=== PATIENT | male | born 1970 | race American Indian/Alaskan Native ===

== ENCOUNTER 2017-05-10 11:29 | Outpatient (CLI) | payer MEDICAID ==
--- NOTE | 2017-05-10 12:42 | XRay Report ---
RIGHT FINGERS, 3 VIEWS History: Right thumb pain, injury. Findings: There is normal bone mineralization. The right thumb appears to be held in flexion on all 3 images. There is no evidence for fracture, dislocation or bone lesion. No erosive joint pathology is identified. The soft tissues are unremarkable. Impression: No evidence for acute bony injury or erosive joint pathology. The thumb appears to be held in flexion on all images. This is of uncertain etiology. Tendinous injury/rupture?
== END 2017-05-10 11:30 | disposition home or self-care (01) ==
LOC: XRAY 11:29
DX: S69.91XA Unspecified injury of right wrist, hand and finger(s), initial encounter (principal); X58.XXXA Exposure to other specified factors, initial encounter; Y93.89 Activity, other specified; Y92.89 Other specified places as the place of occurrence of the external cause; Y99.8 Other external cause status

== ENCOUNTER 2018-12-10 14:31 | Emergency (ER) | payer MEDICARE ==
--- NOTE | 2018-12-10 15:58 | Emergency Department Report ---
ED Head Trauma HPI - General Chief complaint: Wound/Laceration Stated complaint: FALL Time Seen by Provider: 12/10/18 15:58 Source: EMS Mode of arrival: Stretcher Limitations: Language Barrier - Related Data Allergies/Adverse reactions: Allergies Allergy/AdvReac Type Severity Reaction Status Date / Time No Known Allergies Allergy Unverified 05/10/17 11:29 ED Review of Systems ROS: Stated complaint: FALL Other details as noted in HPI ED Past Medical Hx - Past Medical History Hx Seizures: Yes Hx Psychiatric Treatment: Yes (schizopenia) ED Physical Exam - General Limitations: Language Barrier ED Course Vital Signs 12/10/18 14:46 Temperature 98.4 F Pulse Rate 74 Respiratory 18 Rate Blood Pressure 116/74 [Right] O2 Sat by Pulse 98 Oximetry Critical care attestation.: If time is entered above; I have spent that time in minutes in the direct care of this critically ill patient, excluding procedure time. ED Disposition Condition: Stable Referrals: PRIMARY CARE, [Primary Care Provider] - 3-5 Days
--- NOTE | 2018-12-10 16:10 | Event Note ---
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 They said at 12:00 patient fell which she falls a lot and they noticed that patient has worsening gait and unable to walk or get out of bed and worried because although he falls a lot this is something new for him. They also complains that patient has diminished movement on the right side. Patient is alert and responsive and GCS of 15. Normal sensation and follows commands appropriately but this he is unable to get out of bed or ambulate. He is able to move his upper and lower extremities. They deny patient with any head injury and patient denies any headache or neck pain. I spoke with Dr. Rosa Madrid regarding patient condition and she saw patient and agree with workup. Dr. Garland took over care of the patient and patient transferred to the main ED. This initial assessment/diagnostic orders/clinical plan/treatment(s) is/are subject to change based on patients health status, clinical progression and re- assessment by fellow clinical providers in the ED. Further treatment and workup at subsequent clinical providers discretion. Patient/guardian urged not to elope from the ED as their condition may be serious if not clinically assessed and managed. Initial orders include: Workup started to include labs CT scan, x-rays and EKG. Urinalysis and urine drug screen
--- NOTE | 2018-12-10 17:10 | XRay Report ---
CHEST 2 VIEWS INDICATION / CLINICAL INFORMATION: fall with mental impairment. COMPARISON: None available. FINDINGS: SUPPORT DEVICES: None. HEART / MEDIASTINUM: No significant abnormality. LUNGS / PLEURA: No significant pulmonary or pleural abnormality. No pneumothorax. ADDITIONAL FINDINGS: No significant additional findings. IMPRESSION: 1. No acute findings. Signer Name: Arianna Us MD Signed: 12/10/2018 5:06 PM Workstation Name: [id number]
[2018-12-10 17:25] LABS: Alanine Aminotransferase 38 units/L (7-56); Albumin 4.3 g/dL (3.9-5); BUN/Creatinine Ratio 19; Blood Urea Nitrogen 13 mg/dL (9-20); Calcium 9.3 mg/dL (8.4-10.2); Hemolysis Index 10
[2018-12-10 17:32] LABS: Basophils % (Auto) 0.3 % (0.0-1.8); Eosinophils # (Auto) 0.2 K/mm3 (0.0-0.4); Eosinophils % (Auto) 1.9 % (0.0-4.3); Hematocrit 44.3 % (35.5-45.6); Hemoglobin 14.7 gm/dl (11.8-15.2); Lymphocytes # (Auto) 2.4 K/mm3 (1.2-5.4); Lymphocytes % (Auto) 29.6 % (13.4-35.0); Mean Corpuscular HGB Conc 33 % (32-34); Mean Corpuscular Volume 88 fl (84-94); Monocytes # (Auto) 0.3 K/mm3 (0.0-0.8); Platelet Count 178 K/mm3 (140-440); Red Blood Count 5.03 M/mm3 (3.65-5.03); Red Cell Distribution Width 14.1 % (13.2-15.2)
--- NOTE | 2018-12-10 17:43 | Cat Scan Report ---
CT head/brain wo con INDICATION / CLINICAL INFORMATION: 48 years Male; fall with alteration in mobility. TECHNIQUE: Routine CT head without contrast. All CT scans at this location are performed using CT dos e reduction for ALARA by means of automated exposure control. COMPARISON: None FINDINGS: BRAIN / INTRACRANIAL CONTENTS: Scalp hematoma is seen in the right posterior parietal region. I do no t see intracranial sequela from the trauma. I do not see air-fluid level in the visualized paranasal sinuses. I do not see scalp hematoma. No acute hemorrhage, mass effect, midline shift, hydrocephalus, or acute, large territorial infarct. No chronic infarct or focal atrophy. Normal brain volume and ventricular/sulcal size for age. Almost symmetric focal calcification is seen in the frontal lobe white matter. These are nonspecific. I do not see calcified lesion in the foramina of Jeanine. I do not see CT findings to suggest to both legs. CT findings are not consistent with tuberous sclerosis. 2 other considerations are CMV infectio n and toxoplasmosis. If there are previous CT scans of the brain, I do not be helpful for comparison. CRANIOCERVICAL JUNCTION: No significant abnormality. ORBITS: No significant abnormality of visualized orbits. SINUSES / MASTOIDS: No significant abnormality of the visualized paranasal sinuses or mastoid air nanda ls. ADDITIONAL FINDINGS: None. IMPRESSION: I do not see intracranial sequela from the trauma Incidental calcification in the frontal lobe white matter. Signer Name: Elba Spain MD Signed: 12/10/2018 5:39 PM Workstation Name: [id number]
--- NOTE | 2018-12-10 17:50 | Cat Scan Report ---
Exam: CT cervical spine History: fall will complain of neck pain; Technique: Contiguous thin cut axial images obtained through the cervical spine. Sagittal and espinal l reconstructions performed by the technologist. All CT scans at this location are performed using CT dose reduction for ALARA by means of automated exposure control. Findings: No priors. There is no evidence of fracture or traumatic subluxation. I do not see compression fracture. Prevertebral space is normal. In the transverse images, I do not s ee fracture involving the bony canal. Anterior bridging osteophytes are seen in the mid cervical level consistent with DISH. Bony canal stenosis seen in the cervical spine due to short pedicles the C4 and C4-C5 disc levels, br oad-based shallow disc protrusion is seen. Neuroforamina are normal. At C5-C6 disc level, bony spur is seen more towards the right side. Right neuroforamen is narrowed. At C6-C7 disc level, bony spur is seen more towards the left side. Left neural foramen is narrowed. Intervertebral disc spaces are well-maintained. Surrounding soft tissues are grossly normal. Impression: I do not see sequela from the trauma in the cervical spine Bony canal and thecal sac stenoses at C3-C4, C4-C5 and C5-C6 disc levels. Foraminal stenoses at C5-C6 and C6-C7 disc levels Bridging osteophytes consistent with DISH All CT scans at this location are performed using CT dose reduction for ALARA by means of automated e xposure control. Signer Name: Elba Spain MD Signed: 12/10/2018 5:45 PM Workstation Name: [id number]
[2018-12-10 17:55] LABS: INR 1.09 (0.87-1.13)
[2018-12-10 17:56] LABS: Partial Thromboplastin Time 28.2 Sec. (24.2-36.6)
[2018-12-10 17:59] LABS: Amphetamine Screen,Urine PRESUMPTIVE NEGATIVE; Benzodiazepines Screen,Urine PRESUMPTIVE NEGATIVE; Cannabinoid Screen,Urine PRESUMPTIVE NEGATIVE; Cocaine Screen,Urine PRESUMPTIVE NEGATIVE; Methadone Screen,Urine PRESUMPTIVE NEGATIVE; Opiate Screen,Urine PRESUMPTIVE NEGATIVE
--- NOTE | 2018-12-10 18:15 | XRay Report ---
BILATERAL HIP 3 VIEW(S) INDICATION / CLINICAL INFORMATION: fall with altered mobility COMPARISON: None available. FINDINGS: BONES / JOINT(S): No acute fracture or subluxation. No significant arthritis. SOFT TISSUES: No significant abnormality. ADDITIONAL FINDINGS: None. Signer Name: Arianna Us MD Signed: 12/10/2018 6:11 PM Workstation Name: [id number]
[2018-12-10 18:18] LABS: Bilirubin,Urine NEG (Negative); Blood,Urine NEG (Negative); Color,Urine Yellow (Yellow); Protein,Urine <15 mg/dL mg/dL (Negative); Urobilinogen,Urine < 2.0 mg/dL (<2.0)
--- NOTE | 2018-12-10 18:20 | Emergency Department Report ---
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 They said at 12:00 patient fell which he usually falls a lot and they noticed that patient has worsening gait and unable to walk or get out of bed and worried because although he falls a lot this is something new for him. They also complains that patient has diminished movement on the right side. Patient is alert and responsive and GCS of 15. Normal sensation and follows commands appropriately but this he is unable to get out of bed or ambulate. He is able to move his upper extremity. They deny patient with any head injury and patient denies any headache or neck pain MD Complaint: fall - Related Data Allergies Allergy/AdvReac Type Severity Reaction Status Date / Time No Known Allergies Allergy Unverified 05/10/17 11:29 ED Review of Systems ROS: Stated complaint: FALL Other details as noted in HPI Comment: All other systems reviewed and negative Constitutional: denies: chills, fever Respiratory: denies: cough, shortness of breath Cardiovascular: denies: chest pain Gastrointestinal: denies: abdominal pain, nausea, vomiting Musculoskeletal: denies: back pain Neurological: denies: headache ED Past Medical Hx - Past Medical History Hx Seizures: Yes Hx Psychiatric Treatment: Yes (schizopenia) ED Physical Exam - General Limitations: Language Barrier General appearance: alert, in no apparent distress - Head Head exam: Present: other - Eye Eye exam: Present: normal appearance, PERRL - ENT ENT exam: Present: normal exam, normal orophraynx, mucous membranes moist - Neck Neck exam: Present: normal inspection, full ROM. Absent: tenderness, meningismus, lymphadenopathy, thyromegaly - Respiratory Respiratory exam: Present: normal lung sounds bilaterally - Cardiovascular Cardiovascular Exam: Present: regular rate, normal rhythm, normal heart sounds - GI/Abdominal GI/Abdominal exam: Present: soft, normal bowel sounds. Absent: distended, te nderness, guarding, rebound, rigid, organomegaly, mass, bruit, pulsatile mass, hernia - Back Exam Back exam: Present: normal inspection, full ROM. Absent: CVA tenderness (R), CVA tenderness (L), muscle spasm - Neurological Exam Neurological exam: Present: alert, abnormal gait - Skin Skin exam: Present: warm, other (0.5 cm laceration to the forehead.) ED Course Vital Signs 12/10/18 12/10/18 12/10/18 14:46 16:17 17:26 Temperature 98.4 F Pulse Rate 74 71 Respiratory 18 18 11 L Rate Blood Pressure Blood Pressure 116/74 [Right] O2 Sat by Pulse 98 96 100 Oximetry 12/10/18 17:30 Temperature Pulse Rate 65 Respiratory 13 Rate Blood Pressure 127/79 Blood Pressure [Right] O2 Sat by Pulse 98 Oximetry ED Medical Decision Making - Lab Data Result diagrams: 12/10/18 16:38 12/10/18 16:38 - Radiology Data Radiology results: report reviewed - Medical Decision Making Patient is a 48-year-old male presented to the emergency room with caregivers were reported that 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 They said at 12:00 patient fell which he usually falls a lot and they noticed that patient has worsening gait and unable to walk or get out of bed and worried because although he falls a lot this is so mething new for him. They also complains that patient has diminished movement on the right side. Patient is alert and responsive and GCS of 15. Normal sensation and follows commands appropriately but this he is unable to get out of bed or ambulate. He is able to move his upper extremity. They deny patient with any head injury and patient denies any headache or neck pain. Patient CT brain, CT and cervical spine, thoracic spine, lumbar spine are all negative for acute finding. Hip x-ray and pelvis are negative for acute finding. Bilateral knee x-rays negative. Labs reviewed that is unremarkable. The patient is still unable to move his right lower extremity. I discussed the patient was Dr. Palomares from [facility] trauma. She accepted the patient to be transferred to the [facility] ER. Critical Care Time: Yes Critical care time in (mins) excluding proc time.: 30 Critical care attestation.: If time is entered above; I have spent that time in minutes in the direct care of this critically ill patient, excluding procedure time. ED Disposition Clinical Impression: Fall, Head injury, Right leg weakness Disposition: [id number]/TX-[id number] ANOTHER TYPE HLTHCARE Is pt being admited?: No Condition: Stable Referrals: PRIMARY CARE,MD [Primary Care Provider] - 3-5 Days
--- NOTE | 2018-12-10 19:07 | XRay Report ---
AP AND LATERAL VIEWS BOTH KNEES INDICATION: knee injury. COMPARISON: No relevant prior imaging study available. FINDINGS: There is advanced tricompartmental osteoarthrosis of the left knee. There is heterotopic ossification superficial to the lateral tibiofemoral compartment laterally. No acute fracture or dislocation is s een. At the right knee, there is mild tricompartmental joint space narrowing. No acute fracture or disloca tion is seen. IMPRESSION: 1. No acute findings. Signer Name: Dudley Shane MD Signed: 12/10/2018 7:02 PM Workstation Name: [id number]
--- NOTE | 2018-12-10 19:52 | Cat Scan Report ---
CT lumbar spine wo con INDICATION: fall, back pain. TECHNIQUE: All CT scans at this location are performed using the following dose modulation technique: Automated exposure control. COMPARISON: None available. FINDINGS: No acute fracture or subluxation is seen within the lumbar spine. Alignment is normal. There are no s ignificant discogenic degenerative changes. No spinal canal stenosis is seen. The included retroperit white structures are unremarkable. The bladder is distended. Constipation is noted in the included di stal colon. IMPRESSION: 1. No acute fracture or dislocation. Signer Name: Dudley Shane MD Signed: 12/10/2018 7:47 PM Workstation Name: [id number]
--- NOTE | 2018-12-10 20:03 | Cat Scan Report ---
CT thoracic spine wo con INDICATION: fall, back pain. TECHNIQUE: All CT scans at this location are performed using the following dose modulation technique: Automated exposure control. COMPARISON: None available. FINDINGS: No acute fracture or subluxation is seen. No significant degenerative changes. Included posterior teja gs are clear. No rib fractures are identified within the included posterior medial ribs. No significa nt soft tissue abnormality. IMPRESSION: 1. No acute fracture or subluxation within the thoracic spine. Signer Name: Dudley Shane MD Signed: 12/10/2018 7:59 PM Workstation Name: [id number]
[2018-12-10 20:55] VITALS: BP 104/71
== END 2018-12-10 21:46 | disposition other institution (70) ==
LOC: ED 14:31
DX: S09.90XA Unspecified injury of head, initial encounter (principal); M62.81 Muscle weakness (generalized); F20.9 Schizophrenia, unspecified; G11.9 Hereditary ataxia, unspecified; W18.30XA Fall on same level, unspecified, initial encounter; Y93.89 Activity, other specified; Y92.89 Other specified places as the place of occurrence of the external cause; Y99.8 Other external cause status
CPT/HCPCS: 36415; 70450; 71046; 72125; 72128; 72131; 73521; 80053; 80307; 80320; 81001; 82550; 84484; 85025; 85610; 85730; 93005; 93010; G0480

== ENCOUNTER 2019-04-01 18:39 | Inpatient (IN) | payer MEDICARE ==
[2019-04-01] MEDS ORDERED: ACETAMINOPHEN 650 MG RECT SUPP PR STA (19:38)
[2019-04-01] MEDS ORDERED: SODIUM CHLORIDE 0.9% 500 ML 500 ML IV ONE (19:38)
[2019-04-01] MEDS ORDERED: SODIUM CHLORIDE 0.9% 1000 ML IV SOLN IV ONE (19:51)
[2019-04-01] MEDS ORDERED: ACETAMINOPHEN 650 MG RECT SUPP PR ONE (19:52)
[2019-04-01] MEDS ORDERED: CEFEPIME/NS 2 GM/100 ML 2 GM/100 ML BAG IV SCH (20:00)
--- NOTE | 2019-04-01 20:05 | XRay Report ---
Chest single view INDICATION: Dyspnea IMPRESSION: Patchy bibasilar airspace density with low lung volumes. Signer Name: Navin Goetz MD Signed: 04/01/2019 8:00 PM Workstation Name: [id number]
[2019-04-01 20:28] LABS: Basophils % (Auto) 0.2 % (0.0-1.8); Eosinophils % (Auto) 0.1 % (0.0-4.3); Hematocrit 29.2 % (35.5-45.6); Hemoglobin 9.2 gm/dl (11.8-15.2); Lymphocytes # (Auto) 0.9 K/mm3 (1.2-5.4); Lymphocytes % (Auto) 6.6 % (13.4-35.0); Mean Corpuscular HGB Conc 31 % (32-34); Mean Corpuscular Volume 77 fl (84-94); Monocytes # (Auto) 1.1 K/mm3 (0.0-0.8); Monocytes % (Auto) 7.7 % (0.0-7.3); Platelet Count 303 K/mm3 (140-440); Red Blood Count 3.79 M/mm3 (3.65-5.03); Red Cell Distribution Width 17.2 % (13.2-15.2)
[2019-04-01 20:41] LABS: INR 1.21 (0.87-1.13)
[2019-04-01 20:56] LABS: Albumin 2.9 g/dL (3.9-5); Calcium 8.6 mg/dL (8.4-10.2)
[2019-04-01 22:10] LABS: Bilirubin,Urine NEG (Negative); Blood,Urine LG (Negative); Color,Urine Yellow (Yellow); Urobilinogen,Urine < 2.0 mg/dL (<2.0)
[2019-04-01 22:11] LABS: RBC,Urine > 182.0 /HPF (0.0-6.0)
[2019-04-01 22:12] LABS: WBC,Urine > 182.0 /HPF (0.0-6.0)
--- NOTE | 2019-04-01 22:30 | Emergency Department Report ---
ED General Adult HPI - General Chief complaint: Fever Stated complaint: POSS SEPSIS Time Seen by Provider: 04/01/19 19:50 Source: RN/MD, EMS Mode of arrival: Ambulatory Limitations: Altered Mental Status, Physical Limitation - History of Present Illness Initial comments: Patient is a 48-year-old male who is in a custodial facility who is had a Begum catheter for "several months". Patient is here because of elevated temperature. Patient has a history of autism possible schizophrenia. Patient is currently nonverbal but also been told that patient is poorly verbal at baseline. There is no mention of nausea vomiting or diarrhea cough or congestion from paramedics and transported the patient. Severity scale (0 -10): 0 - Related Data Home Medications Medication Instructions Recorded Confirmed Last Taken AtorvaSTATin [Lipitor] 40 mg PO QHS 04/01/19 04/01/19 Unknown Doxazosin Mesylate [Cardura] 2 mg PO DAILY 04/01/19 04/01/19 Unknown Finasteride [Proscar] 5 mg PO DAILY 04/01/19 04/01/19 04/01/19 Fluvoxamine Maleate 100 mg PO DAILY 04/01/19 04/01/19 04/01/19 Metoprolol [Lopressor] 25 mg PO DAILY 04/01/19 04/01/19 04/01/19 OLANzapine [ZyPREXA] 10 mg PO DAILY 04/01/19 04/01/19 Unknown clonazePAM 0.5 mg PO DAILY 04/01/19 04/01/19 04/01/19 Allergies Allergy/AdvReac Type Severity Reaction Status Date / Time No Known Allergies Allergy Unverified 05/10/17 11:29 ED Review of Systems ROS: Stated complaint: POSS SEPSIS Other details as noted in HPI Comment: Unobtainable due to pts medical conditions ED Past Medical Hx - Past Medical History Previous Medical History?: Yes Hx Hypertension: Yes Hx Seizures: Yes (Epilepsy) Hx Psychiatric Treatment: Yes (schizopenia) Additional medical history: HLD; Autism; Myopathy - Surgical History Past Surgical History?: No - Social History Smoking Status: Never Smoker - Medications Home Medications: Home Medications Medication Instructions Recorded Confirmed Last Taken Type AtorvaSTATin [Lipitor] 40 mg PO QHS 04/01/19 04/01/19 Unknown History Doxazosin Mesylate [Cardura] 2 mg PO DAILY 04/01/19 04/01/19 Unknown History Finasteride [Proscar] 5 mg PO DAILY 04/01/19 04/01/19 04/01/19 History Fluvoxamine Maleate 100 mg PO DAILY 04/01/19 04/01/19 04/01/19 History Metoprolol [Lopressor] 25 mg PO DAILY 04/01/19 04/01/19 04/01/19 History OLANzapine [ZyPREXA] 10 mg PO DAILY 04/01/19 04/01/19 Unknown History clonazePAM 0.5 mg PO DAILY 04/01/19 04/01/19 04/01/19 History ED Physical Exam - General Limitations: Altered Mental Status, Physical Limitation General appearance: alert, in no apparent distress - Head Head exam: Present: atraumatic, normocephalic - Eye Eye exam: Present: normal appearance - ENT ENT exam: Present: mucous membranes dry - Neck Neck exam: Present: normal inspection - Respiratory Respiratory exam: Present: normal lung sounds bilaterally. Absent: respiratory distress, wheezes, rales, rhonchi - Cardiovascular Cardiovascular Exam: Present: normal rhythm, tachycardia. Absent: systolic murmur, diastolic murmur, rubs, gallop - GI/Abdominal GI/Abdominal exam: Present: soft, normal bowel sounds. Absent: distended, tenderness, guarding, rebound - Rectal Rectal exam: Present: deferred - Extremities Exam Extremities exam: Present: normal inspection - Back Exam Back exam: Present: normal inspection - Neurological Exam Neurological exam: Present: alert, altered - Psychiatric Psychiatric exam: Present: normal affect, normal mood - Skin Skin exam: Present: warm, dry, intact, normal color. Absent: rash ED Course Vital Signs 04/01/19 04/01/19 04/01/19 19:38 19:39 19:45 Temperature 103.7 F H Pulse Rate 142 H 143 H Respiratory 40 H 22 46 H Rate Blood Pressure 149/108 Blood Pressure 151/132 [Left] O2 Sat by Pulse 99 99 99 Oximetry 04/01/19 04/01/19 04/01/19 20:01 20:15 20:31 Temperature Pulse Rate 138 H 137 H 130 H Respiratory 25 H 27 H 37 H Rate Blood Pressure Blood Pressure [Left] O2 Sat by Pulse 100 99 97 Oximetry 04/01/19 04/01/19 04/01/19 20:45 21:01 21:15 Temperature Pulse Rate 127 H 127 H 124 H Respiratory 43 H 60 H 52 H Rate Blood Pressure 131/90 154/123 154/123 Blood Pressure [Left] O2 Sat by Pulse 97 98 98 Oximetry 04/01/19 04/01/19 04/01/19 21:31 21:45 22:01 Temperature Pulse Rate 126 H 124 H 125 H Respiratory 49 H 52 H 50 H Rate Blood Pressure 129/67 129/67 129/73 Blood Pressure [Left] O2 Sat by Pulse 99 99 98 Oximetry ED Medical Decision Making - Lab Data Result diagrams: 04/01/19 19:45 04/01/19 19:45 Lab Results 04/01/19 04/01/19 04/01/19 Range/Units 19:45 19:45 19:45 WBC 14.1 H (4.5-11.0) K/mm3 RBC 3.79 (3.65-5.03) M/mm3 Hgb 9.2 L (11.8-15.2) gm/dl Hct 29.2 L (35.5-45.6) % MCV 77 L (84-94) fl MCH 24 L (28-32) pg MCHC 31 L (32-34) % RDW 17.2 H (13.2-15.2) % Plt Count 303 (140-440) K/mm3 Lymph % (Auto) 6.6 L (13.4-35.0) % Yancey % (Auto) 7.7 H (0.0-7.3) % Eos % (Auto) 0.1 (0.0-4.3) % Baso % (Auto) 0.2 (0.0-1.8) % Lymph # 0.9 L (1.2-5.4) K/mm3 Yancey # 1.1 H (0.0-0.8) K/mm3 Eos # 0.0 (0.0-0.4) K/mm3 Baso # 0.0 (0.0-0.1) K/mm3 Seg Neutrophils % 85.4 H (40.0-70.0) % Seg Neutrophils # 12.0 H (1.8-7.7) K/mm3 PT 15.5 H (12.2-14.9) Sec. INR 1.21 H (0.87-1.13) VBG pH (7.320-7.420) Sodium 134 L (137-145) mmol/L Potassium 4.8 (3.6-5.0) mmol/L Chloride 94.7 L (98-107) mmol/L Carbon Dioxide 24 (22-30) mmol/L Anion Gap 20 mmol/L BUN 42 H (9-20) mg/dL Creatinine 5.4 H (0.8-1.5) mg/dL Estimated GFR 14 ml/min BUN/Creatinine Ratio 8 % Glucose 92 (75-100) mg/dL Lactic Acid (0.7-2.0) mmol/L Calcium 8.6 (8.4-10.2) mg/dL Total Bilirubin 0.40 (0.1-1.2) mg/dL AST 50 H (5-40) units/L ALT 36 (7-56) units/L Alkaline Phosphatase 114 (35-129) units/L Total Protein 7.5 (6.3-8.2) g/dL Albumin 2.9 L (3.9-5) g/dL Albumin/Globulin Ratio 0.6 % Urine Color (Yellow) Urine Turbidity (Clear) Urine pH (5.0-7.0) Ur Specific [place] (1.003-1.030) Urine Protein (Negative) mg/dL Urine Glucose (UA) (Negative) mg/dL Urine Ketones (Negative) mg/dL Urine Blood (Negative) Urine Nitrite (Negative) Urine Bilirubin (Negative) Urine Urobilinogen (<2.0) mg/dL Ur Leukocyte Esterase (Negative) Urine WBC (Auto) (0.0-6.0) /HPF Urine RBC (Auto) (0.0-6.0) /HPF Urine WBC Clumps /HPF 04/01/19 04/01/19 04/01/19 Range/Units 19:45 19:45 20:43 WBC (4.5-11.0) K/mm3 RBC (3.65-5.03) M/mm3 Hgb (11.8-15.2) gm/dl Hct (35.5-45.6) % MCV (84-94) fl MCH (28-32) pg MCHC (32-34) % RDW (13.2-15.2) % Plt Count (140-440) K/mm3 Lymph % (Auto) (13.4-35.0) % Yancey % (Auto) (0.0-7.3) % Eos % (Auto) (0.0-4.3) % Baso % (Auto) (0.0-1.8) % Lymph # (1.2-5.4) K/mm3 Yancey # (0.0-0.8) K/mm3 Eos # (0.0-0.4) K/mm3 Baso # (0.0-0.1) K/mm3 Seg Neutrophils % (40.0-70.0) % Seg Neutrophils # (1.8-7.7) K/mm3 PT (12.2-14.9) Sec. INR (0.87-1.13) VBG pH 7.356 (7.320-7.420) Sodium (137-145) mmol/L Potassium (3.6-5.0) mmol/L Chloride (98-107) mmol/L Carbon Dioxide (22-30) mmol/L Anion Gap mmol/L BUN (9-20) mg/dL Creatinine (0.8-1.5) mg/dL Estimated GFR ml/min BUN/Creatinine Ratio % Glucose (75-100) mg/dL Lactic Acid 1.70 (0.7-2.0) mmol/L Calcium (8.4-10.2) mg/dL Total Bilirubin (0.1-1.2) mg/dL AST (5-40) units/L ALT (7-56) units/L Alkaline Phosphatase (35-129) units/L Total Protein (6.3-8.2) g/dL Albumin (3.9-5) g/dL Albumin/Globulin Ratio % Urine Color Yellow (Yellow) Urine Turbidity Turbid (Clear) Urine pH 6.0 (5.0-7.0) Ur Specific [place] 1.015 (1.003-1.030) Urine Protein 100 mg/dl (Negative) mg/dL Urine Glucose (UA) 50 (Negative) mg/dL Urine Ketones Tr (Negative) mg/dL Urine Blood Lg (Negative) Urine Nitrite Neg (Negative) Urine Bilirubin Neg (Negative) Urine Urobilinogen < 2.0 (<2.0) mg/dL Ur Leukocyte Esterase Sm (Negative) Urine WBC (Auto) > 182.0 H (0.0-6.0) /HPF Urine RBC (Auto) > 182.0 (0.0-6.0) /HPF Urine WBC Clumps 3+ /HPF 12/10/2018 the patient BUN/creatinine was 13 and 0.7 respectively. Today the patient's BUN/creatinine is risen to 40-5.4. - EKG Data -: EKG Interpreted by Me EKG shows normal: sinus rhythm, axis, intervals, QRS complexes, ST-T waves Rate: tachycardia (126) - Radiology Data Patchy bibasilar infiltrates with low lung volumes likely atelectasis. - Medical Decision Making Patient is a 48-year-old gentleman who is presenting with elevated temperature and tachycardia. Patient is 100% on room air. Patient does show evidence of a urinary tract infection possible sepsis given the patient has new renal failure. His Begum catheter was removed and replaced. Patient will be admitted to the hospitalist service. Critical Care Time: Yes (30) Critical care attestation.: If time is entered above; I have spent that time in minutes in the direct care of this critically ill patient, excluding procedure time. ED Disposition Clinical Impression: Acute renal injury Acute cystitis Qualifiers: Hematuria presence: with hematuria Qualified Code(s): N30.01 - Acute cystitis with hematuria Sepsis Qualifiers: Sepsis type: sepsis due to unspecified organism Sepsis acute organ dysfunction status: with acute organ dysfunction Severe sepsis acute organ dysfunction type: acute renal failure Acute renal failure type: unspecified Disposition: OP ADMIT IP TO THIS HOSP Is pt being admited?: Yes Does the pt Need Aspirin: No Condition: Stable Time of Disposition: 22:31
[2019-04-01] MEDS ORDERED: ACETAMINOPHEN 325 MG RECT SUPP PR ONE (23:10)
[2019-04-01] MEDS ORDERED: ACETAMINOPHEN 650 MG RECT SUPP PR PRN (23:10)
[2019-04-01] MEDS ORDERED: ONDANSETRON 4 MG/2 ML INJ IV PRN (23:10)
--- NOTE | 2019-04-01 23:34 | History and Physical Report ---
History of Present Illness History of present illness: 48-year-old male with a history of seizure, autism, hypertension, schizophrenia was sent to the emergency room from [facility] for evaluation of fever. Patient is unable to give a history, nonverbal. Patient has a chronic indwelling Begum, the bulb of the Begum was released by the nurse in the ER, 400 cc of purulent urine gushed out. A new Begum was placed, purulent urine was obtained followed by bloody urine. Patient received IV fluids, cefepime in the emergency room for urinary tract infection PAST MEDICAL HISTORY: Seizure, autism, hypertension, schizophrenia PAST SURGICAL HISTORY: Unknown SOCIAL HISTORY: Unknown FAMILY HISTORY: Unknown Medications and Allergies Allergies Allergy/AdvReac Type Severity Reaction Status Date / Time No Known Allergies Allergy Unverified 05/10/17 11:29 Home Medications Medication Instructions Recorded Confirmed Last Taken Type AtorvaSTATin [Lipitor] 40 mg PO QHS 04/01/19 04/01/19 Unknown History Doxazosin Mesylate [Cardura] 2 mg PO DAILY 04/01/19 04/01/19 Unknown History Finasteride [Proscar] 5 mg PO DAILY 04/01/19 04/01/19 04/01/19 History Fluvoxamine Maleate 100 mg PO DAILY 04/01/19 04/01/19 04/01/19 History Metoprolol [Lopressor] 25 mg PO DAILY 04/01/19 04/01/19 04/01/19 History OLANzapine [ZyPREXA] 10 mg PO DAILY 04/01/19 04/01/19 Unknown History clonazePAM 0.5 mg PO DAILY 04/01/19 04/01/19 04/01/19 History Active Meds: Active Medications Acetaminophen (Tylenol) 650 mg [place] Q4H PRN PRN Reason: Pain MILD(1-3)/Fever >100.5/BRAR Cefepime HCl (Cefepime/Ns 2 Gm/100 Ml) 2 gm in 100 mls @ 200 mls/hr IV Q12H [facility]; Protocol Last Admin: 04/01/19 20:30 Dose: 200 mls/hr Documented by: Sodium Chloride (Nacl 0.9% 1000 Ml) 1,000 mls @ 75 mls/hr IV DIRECT [facility] Ondansetron HCl (Zofran) 4 mg IV Q8H PRN PRN Reason: Nausea And Vomiting Sodium Chloride (Sodium Chloride Flush Syringe 10 Ml) 10 ml IV BID [facility] Sodium Chloride (Sodium Chloride Flush Syringe 10 Ml) 10 ml IV PRN PRN PRN Reason: LINE FLUSH Exam - Physical Exam Narrative exam: Gen. appearance: Patient lying in bed, no apparent distress HEENT: Normocephalic, atraumatic, pupils equally round and reactive to light, eyes are , extraocular movement intact, and no sclericterus,. No JVD or thyromegaly or nodule,neck supple, no carotid bruit ,mucous membranes dry, u nable to assess Heart: S1, S2, regular rate and rhythm Lungs: clear anteriorly bilaterally, breathing comfortable Abdomen: Positive bowel sounds, non-tender, nondistended, no organomegaly Extremity:no edema cyanosis, clubbing Skin: sacral decubitus, no rash, dry, warm Neuro: difficult to assess - Constitutional Vitals: Temp Pulse Resp BP Pulse Ox 101.7 F H 125 H 50 H 129/73 98 04/01/19 23:00 04/01/19 22:01 04/01/19 22:01 04/01/19 22:01 04/01/19 22:01 Results - Labs CBC & Chem 7: 04/01/19 19:45 04/01/19 19:45 Labs: Abnormal lab results 04/01/19 04/01/19 04/01/19 Range/Units 19:45 19:45 19:45 WBC 14.1 H (4.5-11.0) K/mm3 Hgb 9.2 L (11.8-15.2) gm/dl Hct 29.2 L (35.5-45.6) % MCV 77 L (84-94) fl MCH 24 L (28-32) pg MCHC 31 L (32-34) % RDW 17.2 H (13.2-15.2) % Lymph % (Auto) 6.6 L (13.4-35.0) % [place] % (Auto) 7.7 H (0.0-7.3) % Lymph # 0.9 L (1.2-5.4) K/mm3 [place] # 1.1 H (0.0-0.8) K/mm3 Seg Neutrophils % 85.4 H (40.0-70.0) % Seg Neutrophils # 12.0 H (1.8-7.7) K/mm3 PT 15.5 H (12.2-14.9) Sec. INR 1.21 H (0.87-1.13) Sodium 134 L (137-145) mmol/L Chloride 94.7 L (98-107) mmol/L BUN 42 H (9-20) mg/dL Creatinine 5.4 H (0.8-1.5) mg/dL AST 50 H (5-40) units/L Albumin 2.9 L (3.9-5) g/dL Urine WBC (Auto) (0.0-6.0) /HPF 04/01/19 Range/Units 20:43 WBC (4.5-11.0) K/mm3 Hgb (11.8-15.2) gm/dl Hct (35.5-45.6) % MCV (84-94) fl MCH (28-32) pg MCHC (32-34) % RDW (13.2-15.2) % Lymph % (Auto) (13.4-35.0) % [place] % (Auto) (0.0-7.3) % Lymph # (1.2-5.4) K/mm3 [place] # (0.0-0.8) K/mm3 Seg Neutrophils % (40.0-70.0) % Seg Neutrophils # (1.8-7.7) K/mm3 PT (12.2-14.9) Sec. INR (0.87-1.13) Sodium (137-145) mmol/L Chloride (98-107) mmol/L BUN (9-20) mg/dL Creatinine (0.8-1.5) mg/dL AST (5-40) units/L Albumin (3.9-5) g/dL Urine WBC (Auto) > 182.0 H (0.0-6.0) /HPF - Imaging and Cardiology Chest x-ray: report reviewed Assessment and Plan Assessment Acute renal failure Start IV fluid, check US of renal Urinary tract infection /Pneumonia Start zosyn, follow cultures Seizure stable Schizophrenia Continue outpatient medications Sacral decubitus, consult wound care DVT prophalaxis
--- NOTE | 2019-04-02 00:36 | Ultrasound Report ---
ULTRASOUND RENAL INDICATION / CLINICAL INFORMATION: arf. COMPARISON: None available. FINDINGS: RIGHT KIDNEY: Length = 13.5 cm. [normal > 9 cm] - Parenchymal Thickness = 2.1 cm. [normal > 1.5 cm] - Echogenicity: Increased - Hydronephrosis: None. - Cyst or mass: No significant abnormality. - Stones: None seen. LEFT KIDNEY: Length = 12.8 cm. [normal > 9 cm] - Parenchymal Thickness = 2.0 cm. [normal > 1.5 cm] - Echogenicity: Increased - Hydronephrosis: None. - Cyst or mass: No significant abnormality. - Stones: None seen. URINARY BLADDER: Mostly collapsed. FREE FLUID: None. ADDITIONAL FINDINGS: None. IMPRESSION: 1. Echogenic kidneys, nonspecific but often seen with medical renal disease. Signer Name: Jonel Ledesma MD Signed: 04/02/2019 12:32 AM Workstation Name: [id number]
[2019-04-02] MEDS: PIPERACIL-TAZO 2.25 GM/50 ML 2.25 GM/50 ML BAG IV SCH ×5 (02:58→21:36)
[2019-04-02] MEDS: SODIUM CHLORIDE 0.9% 1000 ML 1,000 ML IV SCH ×2 (03:04→17:41)
[2019-04-02 07:41] LABS: Basophils % (Auto) 0.3 % (0.0-1.8); Eosinophils % (Auto) 0.1 % (0.0-4.3); Hematocrit 25.6 % (35.5-45.6); Hemoglobin 8.2 gm/dl (11.8-15.2); Lymphocytes # (Auto) 1.3 K/mm3 (1.2-5.4); Lymphocytes % (Auto) 9.8 % (13.4-35.0); Mean Corpuscular HGB Conc 32 % (32-34); Mean Corpuscular Volume 76 fl (84-94); Monocytes # (Auto) 1.4 K/mm3 (0.0-0.8); Monocytes % (Auto) 10.4 % (0.0-7.3); Platelet Count 250 K/mm3 (140-440); Red Blood Count 3.36 M/mm3 (3.65-5.03); Red Cell Distribution Width 17.5 % (13.2-15.2)
[2019-04-02 08:03] LABS: Calcium 8.3 mg/dL (8.4-10.2)
--- NOTE | 2019-04-02 08:30 | Progress Note ---
Assessment and Plan Assessment and plan: Patient is a 48-year-old male with a history of seizure, autism, hypertension, schizophrenia was sent [facility] from [facility] for evaluation of fever. Patient is unable to give a history, nonverbal. Patient has a chronic indwelling Begum, the bulb of the Begum was released by the nurse in the ER, 400 cc of purulent urine gushed out. A new Begum was placed, purulent urine was obtained followed by bloody urine. Patient received IV fluids, cefepime in the emergency room for urinary tract infection * Tmax 103.7F, WBC 14.1, Hgb 9.2, na 134, BUN 42, Cr 5.4 AST 50, ALT 36, AP 114, TB 0.40, albumin 2.9 * UA indicative of UTI * pCXR Impression: Patchy bibasilar airspace density with low lung volumes * Renal US Impression: Echogenic Kidneys, nonspecific but often seen with medical renal disease Acute renal failure, ATN, vasomotor nephropathy: Start IV fluid, consult Nephrology Sepsis Urinary tract infection /Pneumonia: treat with IV abx, consulted ID, follow cultures H/o Seizure: stable Schizophrenia: Continue outpatient medications Sacral decubitus, consult wound care Severe malnutrition: consult Samples And Repairs Preparer Acute anemia: check FOBT 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 Follow-up on current diagnosis of Sepsis. Overnight uneventful as no events directly reported to me. Patient nonverbal. Imaging, nursing note, chart, labs and old chart reviewed. Hospitalist Physical - Physical exam Narrative exam: Gen: ill appearing NAD, Awake, confused, nonverbal, grunts HEENT: NCAT, EOMI, PERRL, OP Clear Neck: supple, no adenopathy, no thyromegaly, no JVD CVS/Heart: Regular tachycardia normal S1S2, pulses present bilaterally Chest/Lungs: tachypneic, CTA B, Symmetrical chest expansion, good air entry bilaterally GI/Abdomen: soft, NTND, good bowel sounds, no guarding or rebound /Bladder: no suprapubic tenderness, no CVA or paraspinal tenderness Extermity/Skin: atrophic limbs, MSK: contracted legs Neuro: CN 2-12 grossly intact, doesn't follow commands Psych: calm but confused - Constitutional Vitals: Temp Pulse Resp BP Pulse Ox 97.6 F 101 H 22 112/74 100 04/02/19 06:26 04/02/19 06:26 04/02/19 08:16 04/02/19 06:26 04/02/19 06:26 Results - Labs CBC & Chem 7: 04/02/19 06:49 04/02/19 06:49 Labs: Laboratory Last Values WBC 13.7 K/mm3 (4.5-11.0) H 04/02/19 06:49 RBC 3.36 M/mm3 (3.65-5.03) L 04/02/19 06:49 Hgb 8.2 gm/dl (11.8-15.2) L 04/02/19 06:49 Hct 25.6 % (35.5-45.6) L 04/02/19 06:49 MCV 76 fl (84-94) L 04/02/19 06:49 MCH 24 pg (28-32) L 04/02/19 06:49 MCHC 32 % (32-34) 04/02/19 06:49 RDW 17.5 % (13.2-15.2) H 04/02/19 06:49 Plt Count 250 K/mm3 (140-440) 04/02/19 06:49 Lymph % (Auto) 9.8 % (13.4-35.0) L 04/02/19 06:49 [place] % (Auto) 10.4 % (0.0-7.3) H 04/02/19 06:49 Eos % (Auto) 0.1 % (0.0-4.3) 04/02/19 06:49 Baso % (Auto) 0.3 % (0.0-1.8) 04/02/19 06:49 Lymph # 1.3 K/mm3 (1.2-5.4) 04/02/19 06:49 [place] # 1.4 K/mm3 (0.0-0.8) H 04/02/19 06:49 Eos # 0.0 K/mm3 (0.0-0.4) 04/02/19 06:49 Baso # 0.0 K/mm3 (0.0-0.1) 04/02/19 06:49 Seg Neutrophils % 79.4 % (40.0-70.0) H 04/02/19 06:49 Seg Neutrophils # 10.9 K/mm3 (1.8-7.7) H 04/02/19 06:49 PT 15.5 Sec. (12.2-14.9) H 04/01/19 19:45 INR 1.21 (0.87-1.13) H 04/01/19 19:45 VBG pH 7.356 (7.320-7.420) 04/01/19 19:45 Sodium 138 mmol/L (137-145) 04/02/19 06:49 Potassium 3.9 mmol/L (3.6-5.0) 04/02/19 06:49 Chloride 101.4 mmol/L (98-107) 04/02/19 06:49 Carbon Dioxide 18 mmol/L (22-30) L 04/02/19 06:49 Anion Gap 23 mmol/L 04/02/19 06:49 BUN 42 mg/dL (9-20) H 04/02/19 06:49 Creatinine 3.1 mg/dL (0.8-1.5) H 04/02/19 06:49 Estimated GFR 26 ml/min 04/02/19 06:49 BUN/Creatinine Ratio 14 % 04/02/19 06:49 Glucose 86 mg/dL (75-100) 04/02/19 06:49 Lactic Acid 0.70 mmol/L (0.7-2.0) 04/01/19 22:46 Calcium 8.3 mg/dL (8.4-10.2) L 04/02/19 06:49 Total Bilirubin 0.40 mg/dL (0.1-1.2) 04/01/19 19:45 AST 50 units/L (5-40) H 04/01/19 19:45 ALT 36 units/L (7-56) 04/01/19 19:45 Alkaline Phosphatase 114 units/L (35-129) 04/01/19 19:45 Total Protein 7.5 g/dL (6.3-8.2) 04/01/19 19:45 Albumin 2.9 g/dL (3.9-5) L 04/01/19 19:45 Albumin/Globulin Ratio 0.6 % 04/01/19 19:45 Urine Color Yellow (Yellow) 04/01/19 20:43 Urine Turbidity Turbid (Clear) 04/01/19 20:43 Urine pH 6.0 (5.0-7.0) 04/01/19 20:43 Ur Specific [place] 1.015 (1.003-1.030) 04/01/19 20:43 Urine Protein 100 mg/dl mg/dL (Negative) 04/01/19 20:43 Urine Glucose (UA) 50 mg/dL (Negative) 04/01/19 20:43 Urine Ketones Tr mg/dL (Negative) 04/01/19 20:43 Urine Blood Lg (Negative) 04/01/19 20:43 Urine Nitrite Neg (Negative) 04/01/19 20:43 Urine Bilirubin Neg (Negative) 04/01/19 20:43 Urine Urobilinogen < 2.0 mg/dL (<2.0) 04/01/19 20:43 Ur Leukocyte Esterase Sm (Negative) 04/01/19 20:43 Urine WBC (Auto) > 182.0 /HPF (0.0-6.0) H 04/01/19 20:43 Urine RBC (Auto) > 182.0 /HPF (0.0-6.0) 04/01/19 20:43 Urine WBC Clumps 3+ /HPF 04/01/19 20:43 Active Medications - Current Medications Current Medications: Generic Name Dose Route Start Last Admin Trade Name Freq PRN Reason Stop Dose Admin Acetaminophen 650 mg 04/01/19 23:10 Tylenol [place] Q4H PRN Pain MILD(1-3)/Fever >100.5/BRAR Atorvastatin Calcium 40 mg 04/02/19 22:00 Lipitor PO QHS ESTUARDO Clonazepam 0.5 mg 04/02/19 10:00 Klonopin PO DAILY ESTU[facility] Enoxaparin Sodium 30 mg 04/02/19 10:00 Enoxaparin SUB-Q DAILY ESTU[facility] Finasteride 5 mg 04/02/19 10:00 Proscar PO DAILY [facility] Sodium Chloride 1,000 mls @ 75 mls/hr 04/01/19 23:15 04/02/19 03:04 Nacl 0.9% 1000 Ml IV 75 mls/hr DIRECT ESTUARDO Administration Piperacillin Sod/Tazobactam Sod 2.25 gm in 50 mls @ 100 mls/hr 04/02/19 00:34 04/02/19 06:38 Zosyn/Ns 2.25 Gm/50ml IV Not Given Q8HR [facility] Protocol Miscellaneous Medication 100 mg 04/02/19 10:00 Fluvoxamine Maleate [Fluvoxamine Maleate] PO DAILY [facility] Olanzapine 10 mg 04/02/19 10:00 Zyprexa PO DAILY [facility] Ondansetron HCl 4 mg 04/01/19 23:10 Zofran IV Q8H PRN Nausea And Vomiting Sodium Chloride 10 ml 04/02/19 10:00 Sodium Chloride Flush Syringe 10 Ml IV BID [facility] Sodium Chloride 10 ml 04/01/19 23:10 Sodium Chloride Flush Syringe 10 Ml IV PRN PRN LINE FLUSH
[2019-04-02] MEDS: FINASTERIDE 5 MG TAB PO SCH (09:29)
[2019-04-02] MEDS: clonazePAM 0.5 MG TAB PO SCH (09:30)
[2019-04-02] MEDS ORDERED: ENOXAPARIN 30 MG/0.3 ML INJ SUB-Q SCH (10:00)
[2019-04-02] MEDS ORDERED: FLUVOXAMINE MALEATE 100 MG PO SCH (10:00)
--- NOTE | 2019-04-02 11:40 | Consultation ---
History of Present Illness - Reason for Consult Consult date: 04/02/19 - History of Present Illness 48 yo M PMHx autism (non-verbal), HTN, schizophrenia admitted from his alf due to fevers. He has a chronic Begum cath (unclear when last changed prior to admission), and when released by the nurse in the ER a significant volume of purulent fluid was released. A new Begum was subsequently placed, and more purulent urine was obtained followed by hematuria. Febrile on admission to 103.7 with a white count of 14. Currently receiving Zosyn. Blood cultures and urine cultures are pending. Imaging personally reviewed: CXR: patchy bibasilar airspace density Past History Past Medical History: other (See HPI) Past Surgical History: Other (Unobtainable due to mental status) Social history: other (Lives in alf) Family history: other (Unobtainable due to mental status) Medications and Allergies Allergies Allergy/AdvReac Type Severity Reaction Status Date / Time No Known Allergies Allergy Unverified 05/10/17 11:29 Home Medications Medication Instructions Recorded Confirmed Last Taken Type AtorvaSTATin [Lipitor] 40 mg PO QHS 04/01/19 04/01/19 Unknown History Doxazosin Mesylate [Cardura] 2 mg PO DAILY 04/01/19 04/01/19 Unknown History Finasteride [Proscar] 5 mg PO DAILY 04/01/19 04/01/19 04/01/19 History Fluvoxamine Maleate 100 mg PO DAILY 04/01/19 04/01/19 04/01/19 History Metoprolol [Lopressor] 25 mg PO DAILY 04/01/19 04/01/19 04/01/19 History OLANzapine [ZyPREXA] 10 mg PO DAILY 04/01/19 04/01/19 Unknown History clonazePAM 0.5 mg PO DAILY 04/01/19 04/01/19 04/01/19 History Active Meds: Active Medications Acetaminophen (Tylenol) 650 mg [place] Q4H PRN PRN Reason: Pain MILD(1-3)/Fever >100.5/BRAR Atorvastatin Calcium (Lipitor) 40 mg PO QHS [facility] Clonazepam (Klonopin) 0.5 mg PO DAILY [facility] Last Admin: 04/02/19 09:30 Dose: 0.5 mg Documented by: Finasteride (Proscar) 5 mg PO DAILY [facility] Last Admin: 04/02/19 09:29 Dose: 5 mg Documented by: Sodium Chloride (Nacl 0.9% 1000 Ml) 1,000 mls @ 75 mls/hr IV DIRECT [facility] Last Admin: 04/02/19 03:04 Dose: 75 mls/hr Documented by: Piperacillin Sod/Tazobactam Sod (Zosyn/Ns 2.25 Gm/50ml) 2.25 gm in 50 mls @ 100 mls/hr IV Q8HR [facility]; Protocol Last Admin: 04/02/19 06:38 Dose: Not Given Documented by: Miscellaneous Medication (Fluvoxamine Maleate [Fluvoxamine Maleate]) 100 mg PO DAILY [facility] Olanzapine (Zyprexa) 10 mg PO DAILY [facility] Last Admin: 04/02/19 09:29 Dose: 10 mg Documented by: Ondansetron HCl (Zofran) 4 mg IV Q8H PRN PRN Reason: Nausea And Vomiting Sodium Chloride (Sodium Chloride Flush Syringe 10 Ml) 10 ml IV BID [facility] Last Admin: 04/02/19 09:30 Dose: Not Given Documented by: Sodium Chloride (Sodium Chloride Flush Syringe 10 Ml) 10 ml IV PRN PRN PRN Reason: LINE FLUSH Review of Systems ROS unobtainable: due to mental status Physical Examination - Physical Exam Narrative exam: Constitutional: Non-verbal, no obvious distress Head, Ears, Nose: Normocephalic, atraumatic. External ears, nose normal Eyes: Conjunctivae/corneas clear. No icterus. No ptosis. Neck: Supple, no meningeal signs Oral: dentition fair, no thrush Cardiovascular: S1, S2 normal. Respiratory: Good air entry, clear to auscultation bilaterally GI: Soft, non-tender; bowel sounds normal. No peritoneal signs. Musculoskeletal: No pedal edema, no cyanosis. Skin: No rash or abscess Hem/Lymphatic: No palpable cervical or supraclavicular nodes. No lymphangitis Psych: Non-verbal Neurological: Awake, non-verbal - Constitutional Vitals: Vital Signs Temp Pulse Resp BP Pulse Ox 98.1 F 103 H 18 120/80 99 04/02/19 08:31 04/02/19 08:52 04/02/19 08:31 04/02/19 08:31 04/02/19 10:09 Temperature -Last 24 Hours Temperature 98.1 F Temperature 97.6 F Temperature 98.9 F Temperature 101.7 F Temperature 103.7 F Results - Labs CBC & Chem 7: 04/02/19 06:49 04/02/19 06:49 Labs: Abnormal lab results 04/01/19 04/01/19 04/01/19 Range/Units 19:45 19:45 19:45 WBC 14.1 H (4.5-11.0) K/mm3 RBC (3.65-5.03) M/mm3 Hgb 9.2 L (11.8-15.2) gm/dl Hct 29.2 L (35.5-45.6) % MCV 77 L (84-94) fl MCH 24 L (28-32) pg MCHC 31 L (32-34) % RDW 17.2 H (13.2-15.2) % Lymph % (Auto) 6.6 L (13.4-35.0) % [place] % (Auto) 7.7 H (0.0-7.3) % Lymph # 0.9 L (1.2-5.4) K/mm3 [place] # 1.1 H (0.0-0.8) K/mm3 Seg Neutrophils % 85.4 H (40.0-70.0) % Seg Neutrophils # 12.0 H (1.8-7.7) K/mm3 PT 15.5 H (12.2-14.9) Sec. INR 1.21 H (0.87-1.13) Sodium 134 L (137-145) mmol/L Chloride 94.7 L (98-107) mmol/L Carbon Dioxide (22-30) mmol/L BUN 42 H (9-20) mg/dL Creatinine 5.4 H (0.8-1.5) mg/dL Calcium (8.4-10.2) mg/dL AST 50 H (5-40) units/L Albumin 2.9 L (3.9-5) g/dL Urine WBC (Auto) (0.0-6.0) /HPF 04/01/19 04/02/19 04/02/19 Range/Units 20:43 06:49 06:49 WBC 13.7 H (4.5-11.0) K/mm3 RBC 3.36 L (3.65-5.03) M/mm3 Hgb 8.2 L (11.8-15.2) gm/dl Hct 25.6 L (35.5-45.6) % MCV 76 L (84-94) fl MCH 24 L (28-32) pg MCHC (32-34) % RDW 17.5 H (13.2-15.2) % Lymph % (Auto) 9.8 L (13.4-35.0) % [place] % (Auto) 10.4 H (0.0-7.3) % Lymph # (1.2-5.4) K/mm3 [place] # 1.4 H (0.0-0.8) K/mm3 Seg Neutrophils % 79.4 H (40.0-70.0) % Seg Neutrophils # 10.9 H (1.8-7.7) K/mm3 PT (12.2-14.9) Sec. INR (0.87-1.13) Sodium (137-145) mmol/L Chloride (98-107) mmol/L Carbon Dioxide 18 L (22-30) mmol/L BUN 42 H (9-20) mg/dL Creatinine 3.1 H (0.8-1.5) mg/dL Calcium 8.3 L (8.4-10.2) mg/dL AST (5-40) units/L Albumin (3.9-5) g/dL Urine WBC (Auto) > 182.0 H (0.0-6.0) /HPF Assessment and Plan Cultures: 04/01/2019 blood cultures: pending 04/01/2019 urine cultuers: pending A&P: 48 yo M PMHx autism (non-verbal), HTN, schizophrenia admitted with UTI 2/2 chronic Begum #Acute sepsis - present with fevers and leukocytosis, secondary to UTI #UTI - from chronic Begum. Begum should be replaced monthly. Will exchange Zosyn for cefepime to spare anaerobic coverage, follow up urine culture #WILMAN on CKD - renall dose antibiotics Recommendations: - stop Zosyn - start cefepime 2g q24h - follow up blood and urine cultures. Thank you for the consult, will follow. MD [facility] M: [phone] O: [phone] F: [phone]
[2019-04-02 12:36] LABS: Creatinine,Urine 118.2 mg/dL (0.1-20.0)
--- NOTE | 2019-04-02 15:11 | Consultation ---
History of Present Illness - Reason for Consult Consult date: 04/02/19 acute renal failure - History of Present Illness Patient is nonverbal. HPI derived from ED H&P. 48-year-old male with pmh si gnificant for seizure, autism, hypertension, schizophrenia was sent to the emergency room from long-term for evaluation of fever. Patient has a chronic indwelling Fox, the bulb of the Fox was released by the nurse in the ER, 400 cc of purulent urine gushed out. A new Fox was placed, purulent urine was obtained followed by bloody urine. Patient received IV fluids, cefepime in the emergency room for urinary tract infection. At time of consult labs are significant for creatinine level 3.1 from 5.4. Renal ultrasound showed nonspecific echogenic bilateral kidneys. Nephrology was consulted for further evaluation and treatment of acute kidney injury. Past History Past Medical History: hypertension, seizures, other (schizophrenia, autism) Past Surgical History: Other (Unobtainable due to mental status) Social history: other (Lives in long-term) Family history: other (Unobtainable due to mental status) Medications and Allergies Allergies Allergy/AdvReac Type Severity Reaction Status Date / Time No Known Allergies Allergy Unverified 05/10/17 11:29 Home Medications Medication Instructions Recorded Confirmed Last Taken Type AtorvaSTATin [Lipitor] 40 mg PO QHS 04/01/19 04/01/19 Unknown History Doxazosin Mesylate [Cardura] 2 mg PO DAILY 04/01/19 04/01/19 Unknown History Finasteride [Proscar] 5 mg PO DAILY 04/01/19 04/01/19 04/01/19 History Fluvoxamine Maleate 100 mg PO DAILY 04/01/19 04/01/19 04/01/19 History Metoprolol [Lopressor] 25 mg PO DAILY 04/01/19 04/01/19 04/01/19 History OLANzapine [ZyPREXA] 10 mg PO DAILY 04/01/19 04/01/19 Unknown History clonazePAM 0.5 mg PO DAILY 04/01/19 04/01/19 04/01/19 History Active Meds: Active Medications Acetaminophen (Tylenol) 650 mg [place] Q4H PRN PRN Reason: Pain MILD(1-3)/Fever >100.5/BRAR Atorvastatin Calcium (Lipitor) 40 mg PO QHS [facility] Clonazepam (Klonopin) 0.5 mg PO DAILY [facility] Last Admin: 04/02/19 09:30 Dose: 0.5 mg Documented by: Finasteride (Proscar) 5 mg PO DAILY [facility] Last Admin: 04/02/19 09:29 Dose: 5 mg Documented by: Sodium Chloride (Nacl 0.9% 1000 Ml) 1,000 mls @ 75 mls/hr IV DIRECT [facility] Last Admin: 04/02/19 03:04 Dose: 75 mls/hr Documented by: Piperacillin Sod/Tazobactam Sod (Zosyn/Ns 2.25 Gm/50ml) 2.25 gm in 50 mls @ 100 mls/hr IV Q8HR [facility]; Protocol Last Admin: 04/02/19 13:03 Dose: Not Given Documented by: Miscellaneous Medication (Fluvoxamine Maleate [Fluvoxamine Maleate]) 100 mg PO DAILY [facility] Olanzapine (Zyprexa) 10 mg PO DAILY [facility] Last Admin: 04/02/19 09:29 Dose: 10 mg Documented by: Ondansetron HCl (Zofran) 4 mg IV Q8H PRN PRN Reason: Nausea And Vomiting Sodium Chloride (Sodium Chloride Flush Syringe 10 Ml) 10 ml IV BID [facility] Last Admin: 04/02/19 09:30 Dose: Not Given Documented by: Sodium Chloride (Sodium Chloride Flush Syringe 10 Ml) 10 ml IV PRN PRN PRN Reason: LINE FLUSH Review of Systems ROS unobtainable: due to mental status Exam - Vital Signs Vital signs: Vital Signs Resp Pulse Ox 40 H 99 04/01/19 19:38 04/01/19 19:38 - General Appearance General appearance: well-developed, well-nourished, appears stated age EENT: ATNC, PERRL, mucous membranes dry Neck: Present: neck supple, trachea midline Respiratory: Clear to Ascultation, Normal Exam Heart: regular, normal heart rate, S1S2, no murmurs Gastrointestinal: Present: normal, normoactive bowel sounds. Absent: tenderness, distended, masses Integumentary: no rash, warm and dry, other (sacral wound) Neurologic: other (nonverbal) Musculoskeletal: Present: other (legs contracted, bilateral pedal edema). Absent: erythema Psychiatric: other (calm) Results - Lab Results 04/02/19 06:49 04/02/19 06:49 Most recent lab results Calcium 8.3 mg/dL (8.4-10.2) L 04/02/19 06:49 Urine Creatinine 118.2 mg/dL (0.1-20.0) H 04/02/19 08:59 Urine Sodium 43 mmol/L 04/02/19 08:59 - Image Kidney/bladder ultrasound: report reviewed (bilateral echogenic kidneys) Assessment and Plan 1. Acute kidney injury: Likely vasomotor WILMAN with ATN in setting of sepsis. Renal US negative for hydro. Renal function is improving, today is 3.1 from 5.4. Continue to monitor renal function. Avoid nephrotoxic agents. Meds dosage based on GFR. 2. FEN: Metabolic acidosis, likely 2/2 lactic acidosis, monitor. Monitor lytes. 3. Sepsis: Secondary to UTI from chronic fox. On ABX. 4. Hypertension: 5. Seizure disorder: 6. Autism: Nonverbal. 7. Schizophrenia:
[2019-04-03 06:01] LABS: BUN/Creatinine Ratio 28; Blood Urea Nitrogen 28 mg/dL (9-20); Calcium 8.1 mg/dL (8.4-10.2); Hemolysis Index 9
[2019-04-03] MEDS: PIPERACIL-TAZO 2.25 GM/50 ML 2.25 GM/50 ML BAG IV SCH (06:36)
[2019-04-03] MEDS: SODIUM CHLORIDE 0.9% 1000 ML 1,000 ML IV SCH (06:39)
[2019-04-03] MEDS: FINASTERIDE 5 MG TAB PO SCH (10:19)
[2019-04-03] MEDS: clonazePAM 0.5 MG TAB PO SCH (10:19)
[2019-04-03] MEDS ORDERED: MAGNESIUM SULFATE 2 GM/50 ML BAG IV ONE (12:05)
--- NOTE | 2019-04-03 12:08 | Progress Note ---
Assessment and Plan 1. Acute kidney injury: Likely vasomotor WILMAN with ATN in setting of sepsis. Renal US negative for hydro. Renal function is much better, today is 1.0 from 3.1. Continue IV fluids. Continue to monitor renal function. Avoid nephrotoxic agents. Meds dosage based on GFR. 2. FEN: Metabolic acidosis, likely 2/2 acute kidney injury, improving, monitor. Serum sodium and potassium values are still pending from morning lab draw. Replete magnesium, monitor. Monitor lytes. 3. Sepsis: Secondary to UTI from chronic fox. On ABX. 4. Hypertension: 5. Seizure disorder: 6. Autism: Nonverbal. 7. Schizophrenia: Subjective Date of service: 04/03/19 Interval history: Patient was seen and examined at the bedside. No family is present. No acute events overnight. Objective - Exam Narrative Exam: General appearance: well-developed, well-nourished, appears stated age EENT: ATNC, PERRL, mucous membranes moist Neck: Present: neck supple, trachea midline Respiratory: Clear to Ascultation, Normal Exam Heart: regular, normal heart rate, S1S2, no murmurs Gastrointestinal: Present: normal, normoactive bowel sounds. Absent: tenderness, distended, masses Integumentary: no rash, warm and dry, other (sacral wound) Neurologic: other (nonverbal) Musculoskeletal: Present: other (legs contracted, bilateral pedal edema). Absent: erythema Psychiatric: other (calm) - Vital Signs Vital signs: Vital Signs - 12hr 04/03/19 04/03/19 04/03/19 01:07 05:04 08:05 Temperature 98.0 F 98.0 F 99.7 F H Pulse Rate 115 H 103 H 97 H Respiratory 18 18 18 Rate Blood Pressure 137/91 140/90 132/87 O2 Sat by Pulse 100 99 99 Oximetry 04/03/19 10:00 Temperature Pulse Rate 95 H Respiratory Rate Blood Pressure O2 Sat by Pulse Oximetry - Lab 04/02/19 06:49 04/03/19 05:16 Most recent lab results Calcium 8.1 mg/dL (8.4-10.2) L 04/03/19 05:16 Phosphorus 3.10 mg/dL (2.5-4.5) 04/03/19 05:16 Magnesium 1.30 mg/dL (1.7-2.3) L 04/03/19 05:16 Urine Creatinine 118.2 mg/dL (0.1-20.0) H 04/02/19 08:59 Urine Sodium 43 mmol/L 04/02/19 08:59 Medications & Allergies - Medications Allergies/Adverse Reactions: Allergies No Known Allergies Allergy (Unverified 05/10/17 11:29) Home Medications: Home Medications Medication Instructions Recorded Confirmed Last Taken Type AtorvaSTATin [Lipitor] 40 mg PO QHS 04/01/19 04/01/19 Unknown History Doxazosin Mesylate [Cardura] 2 mg PO DAILY 04/01/19 04/01/19 Unknown History Finasteride [Proscar] 5 mg PO DAILY 04/01/19 04/01/19 04/01/19 History Fluvoxamine Maleate 100 mg PO DAILY 04/01/19 04/01/19 04/01/19 History Metoprolol [Lopressor] 25 mg PO DAILY 04/01/19 04/01/19 04/01/19 History OLANzapine [ZyPREXA] 10 mg PO DAILY 04/01/19 04/01/19 Unknown History clonazePAM 0.5 mg PO DAILY 04/01/19 04/01/19 04/01/19 History Active Medications: Generic Name Dose Route Start Last Admin Trade Name Freq PRN Reason Stop Dose Admin Acetaminophen 650 mg 04/01/19 23:10 Tylenol [place] Q4H PRN Pain MILD(1-3)/Fever >100.5/BRAR Atorvastatin Calcium 40 mg 04/02/19 22:00 04/02/19 21:37 Lipitor PO 40 mg QHS ESTUARDO Administration Clonazepam 0.5 mg 04/02/19 10:00 04/03/19 10:19 Klonopin PO 0.5 mg DAILY ESTUARDO Administration Finasteride 5 mg 04/02/19 10:00 04/03/19 10:19 Proscar PO 5 mg DAILY ESTUARDO Administration Sodium Chloride 1,000 mls @ 75 mls/hr 04/01/19 23:15 04/03/19 06:39 Nacl 0.9% 1000 Ml IV 75 mls/hr DIRECT ESTUARDO Administration Magnesium Sulfate 2 gm in 50 mls @ 25 mls/hr 04/03/19 12:05 Magnesium Sulfate 2gm/50ml IV 04/03/19 14:04 ONCE ONE Cefepime HCl 2 gm in 100 mls @ 200 mls/hr 04/03/19 12:30 Cefepime/Ns 2 Gm/100 Ml IV Q24HR [facility] Protocol Miscellaneous Medication 100 mg 04/02/19 10:00 Fluvoxamine Maleate [Fluvoxamine Maleate] PO DAILY ESTUARDO Olanzapine 10 mg 04/02/19 10:00 04/03/19 10:19 Zyprexa PO 10 mg DAILY ESTUARDO Administration Ondansetron HCl 4 mg 04/01/19 23:10 Zofran IV Q8H PRN Nausea And Vomiting Sodium Chloride 10 ml 04/02/19 10:00 04/03/19 10:20 Sodium Chloride Flush Syringe 10 Ml IV 10 ml BID ESTUARDO Administration Sodium Chloride 10 ml 04/01/19 23:10 Sodium Chloride Flush Syringe 10 Ml IV PRN PRN LINE FLUSH
[2019-04-03] MEDS ORDERED: POTASSIUM CHLORIDE ER 20 MEQ TAB PO ONE (13:39)
[2019-04-03] MEDS: CEFEPIME/NS 2 GM/100 ML 2 GM/100 ML BAG IV SCH (13:55)
--- NOTE | 2019-04-03 15:28 | Progress Note ---
Assessment and Plan Cultures: 04/01/2019 blood cultures: pending 04/01/2019 urine cultuers: GNR pending ID and ORESTES A&P: 48 yo M PMHx autism (non-verbal), HTN, schizophrenia admitted with UTI 2/2 chronic Begum #Acute sepsis - present with fevers and leukocytosis, secondary to UTI #UTI - from chronic Begum. Begum should be replaced monthly. Will exchange Zosyn for cefepime to spare anaerobic coverage, follow up urine culture #WILMAN on CKD - renall dose antibiotics Recommendations: - start cefepime 2g q24h - follow up blood and urine cultures. Thank you for the consult, will follow. Leroy Olmstead MD [facility] ([facility]) M: [phone] O: [phone] F: [phone] Subjective Date of service: 04/03/19 Interval history: Afebrile. No new issues. Objective - Exam Narrative Exam: Constitutional: Non-verbal, no obvious distress Head, Ears, Nose: Normocephalic, atraumatic. External ears, nose normal Eyes: Conjunctivae/corneas clear. No icterus. No ptosis. Neck: Supple, no meningeal signs Oral: dentition fair, no thrush Cardiovascular: S1, S2 normal. Respiratory: Good air entry, clear to auscultation bilaterally GI: Soft, non-tender; bowel sounds normal. No peritoneal signs. Musculoskeletal: No pedal edema, no cyanosis. Skin: No rash or abscess Hem/Lymphatic: No palpable cervical or supraclavicular nodes. No lymphangitis Psych: Non-verbal Neurological: Awake, non-verbal - Constitutional Vitals: Vital Signs Temp Pulse Resp BP Pulse Ox 99.1 F 97 H 18 119/79 99 04/03/19 11:26 04/03/19 12:12 04/03/19 12:12 04/03/19 11:26 04/03/19 12:12 Temperature -Last 24 Hours Temperature 99.1 F Temperature 99.7 F Temperature 98.0 F Temperature 98.0 F Temperature 98.0 F Temperature 97.9 F - Labs CBC & Chem 7: 04/02/19 06:49 04/03/19 05:16 Labs: Abnormal lab results 04/03/19 Range/Units 05:16 Carbon Dioxide 21 L (22-30) mmol/L BUN 28 H (9-20) mg/dL Glucose 125 H (75-100) mg/dL Calcium 8.1 L (8.4-10.2) mg/dL Magnesium 1.30 L (1.7-2.3) mg/dL
--- NOTE | 2019-04-03 16:14 | Progress Note ---
Assessment and Plan Assessment and plan: Patient is a 48-year-old male with a history of seizure, autism, hypertension, schizophrenia was sent to the emergency room from correction for evaluation of fever. Patient is unable to give a history, nonverbal. Patient has a chronic indwelling Begum, the bulb of the Begum was released by the nurse in the ER, 400 cc of purulent urine gushed out. A new Begum was placed, purulent urine was obtained followed by bloody urine. Patient received IV fluids, cefepime in the emergency room for urinary tract infection * Tmax 103.7F, WBC 14.1, Hgb 9.2, na 134, BUN 42, Cr 5.4 AST 50, ALT 36, AP 114, TB 0.40, albumin 2.9 * UA indicative of UTI * pCXR Impression: Patchy bibasilar airspace density with low lung volumes * Renal US Impression: Echogenic Kidneys, nonspecific but often seen with medical renal disease Acute renal failure, ATN, vasomotor nephropathy: Start IV fluid, consult Nephrology Sepsis Urinary tract infection /Pneumonia: treat with IV abx, consulted ID, follow cultures H/o Seizure: stable Schizophrenia: Continue outpatient medications Sacral decubitus, consult wound care Severe malnutrition: consult Account Installer Acute anemia: check FOBT Functional quadriplegic suspected, Autistic DVT prophalaxis: sq heparin Disposition: continue inpatient care, urine culture growing GNR, await finalization. History Interval history: Patient was seen and examined. Follow-up on current diagnosis of Sepsis. Overnight uneventful as no events directly reported to me. Patient nonverbal. Imaging, nursing note, chart, labs and old chart reviewed. Hospitalist Physical - Physical exam Narrative exam: Gen: ill appearing NAD, Awake, confused, nonverbal, grunts HEENT: NCAT, EOMI, PERRL, OP Clear Neck: supple, no adenopathy, no thyromegaly, no JVD CVS/Heart: Regular tachycardia normal S1S2, pulses present bilaterally Chest/Lungs: tachypneic, CTA B, Symmetrical chest expansion, good air entry bilaterally GI/Abdomen: soft, NTND, good bowel sounds, no guarding or rebound /Bladder: no suprapubic tenderness, no CVA or paraspinal tenderness Extermity/Skin: atrophic limbs, MSK: contracted legs Neuro: CN 2-12 grossly intact, doesn't follow commands Psych: calm but confused - Constitutional Vitals: Temp Pulse Resp BP Pulse Ox 99.1 F 97 H 18 119/79 99 04/03/19 11:26 04/03/19 12:12 04/03/19 12:12 04/03/19 11:26 04/03/19 12:12 Results - Labs CBC & Chem 7: 04/02/19 06:49 04/03/19 05:16 Labs: Laboratory Last Values WBC 13.7 K/mm3 (4.5-11.0) H 04/02/19 06:49 RBC 3.36 M/mm3 (3.65-5.03) L 04/02/19 06:49 Hgb 8.2 gm/dl (11.8-15.2) L 04/02/19 06:49 Hct 25.6 % (35.5-45.6) L 04/02/19 06:49 MCV 76 fl (84-94) L 04/02/19 06:49 MCH 24 pg (28-32) L 04/02/19 06:49 MCHC 32 % (32-34) 04/02/19 06:49 RDW 17.5 % (13.2-15.2) H 04/02/19 06:49 Plt Count 250 K/mm3 (140-440) 04/02/19 06:49 Lymph % (Auto) 9.8 % (13.4-35.0) L 04/02/19 06:49 [place] % (Auto) 10.4 % (0.0-7.3) H 04/02/19 06:49 Eos % (Auto) 0.1 % (0.0-4.3) 04/02/19 06:49 Baso % (Auto) 0.3 % (0.0-1.8) 04/02/19 06:49 Lymph # 1.3 K/mm3 (1.2-5.4) 04/02/19 06:49 [place] # 1.4 K/mm3 (0.0-0.8) H 04/02/19 06:49 Eos # 0.0 K/mm3 (0.0-0.4) 04/02/19 06:49 Baso # 0.0 K/mm3 (0.0-0.1) 04/02/19 06:49 Seg Neutrophils % 79.4 % (40.0-70.0) H 04/02/19 06:49 Seg Neutrophils # 10.9 K/mm3 (1.8-7.7) H 04/02/19 06:49 PT 15.5 Sec. (12.2-14.9) H 04/01/19 19:45 INR 1.21 (0.87-1.13) H 04/01/19 19:45 VBG pH 7.356 (7.320-7.420) 04/01/19 19:45 Sodium 138 mmol/L (137-145) 04/02/19 06:49 Potassium 3.9 mmol/L (3.6-5.0) 04/02/19 06:49 Chloride 101.4 mmol/L (98-107) 04/02/19 06:49 Carbon Dioxide 21 mmol/L (22-30) L 04/03/19 05:16 Anion Gap 23 mmol/L 04/02/19 06:49 BUN 28 mg/dL (9-20) H 04/03/19 05:16 Creatinine 1.0 mg/dL (0.8-1.5) D 04/03/19 05:16 Estimated GFR > 60 ml/min 04/03/19 05:16 BUN/Creatinine Ratio 28 % 04/03/19 05:16 Glucose 125 mg/dL (75-100) H 04/03/19 05:16 Lactic Acid 0.70 mmol/L (0.7-2.0) 04/01/19 22:46 Calcium 8.1 mg/dL (8.4-10.2) L 04/03/19 05:16 Phosphorus 3.10 mg/dL (2.5-4.5) 04/03/19 05:16 Magnesium 1.30 mg/dL (1.7-2.3) L 04/03/19 05:16 Total Bilirubin 0.40 mg/dL (0.1-1.2) 04/01/19 19:45 AST 50 units/L (5-40) H 04/01/19 19:45 ALT 36 units/L (7-56) 04/01/19 19:45 Alkaline Phosphatase 114 units/L (35-129) 04/01/19 19:45 Total Protein 7.5 g/dL (6.3-8.2) 04/01/19 19:45 Albumin 2.9 g/dL (3.9-5) L 04/01/19 19:45 Albumin/Globulin Ratio 0.6 % 04/01/19 19:45 Urine Color Yellow (Yellow) 04/01/19 20:43 Urine Turbidity Turbid (Clear) 04/01/19 20:43 Urine pH 6.0 (5.0-7.0) 04/01/19 20:43 Ur Specific [place] 1.015 (1.003-1.030) 04/01/19 20:43 Urine Protein 100 mg/dl mg/dL (Negative) 04/01/19 20:43 Urine Glucose (UA) 50 mg/dL (Negative) 04/01/19 20:43 Urine Ketones Tr mg/dL (Negative) 04/01/19 20:43 Urine Blood Lg (Negative) 04/01/19 20:43 Urine Nitrite Neg (Negative) 04/01/19 20:43 Urine Bilirubin Neg (Negative) 04/01/19 20:43 Urine Urobilinogen < 2.0 mg/dL (<2.0) 04/01/19 20:43 Ur Leukocyte Esterase Sm (Negative) 04/01/19 20:43 Urine WBC (Auto) > 182.0 /HPF (0.0-6.0) H 04/01/19 20:43 Urine RBC (Auto) > 182.0 /HPF (0.0-6.0) 04/01/19 20:43 Urine WBC Clumps 3+ /HPF 04/01/19 20:43 Urine Eosinophils Rare (None Seen) 04/02/19 09:00 Urine Creatinine 118.2 mg/dL (0.1-20.0) H 04/02/19 08:59 Urine Sodium 43 mmol/L 04/02/19 08:59 Active Medications - Current Medications Current Medications: Generic Name Dose Route Start Last Admin Trade Name Freq PRN Reason Stop Dose Admin Acetaminophen 650 mg 04/01/19 23:10 Tylenol ID Q4H PRN Pain MILD(1-3)/Fever >100.5/BRAR Atorvastatin Calcium 40 mg 04/02/19 22:00 04/02/19 21:37 Lipitor PO 40 mg QHS ESTUARDO Administration Clonazepam 0.5 mg 04/02/19 10:00 04/03/19 10:19 Klonopin PO 0.5 mg DAILY ESTUARDO Administration Finasteride 5 mg 04/02/19 10:00 04/03/19 10:19 Proscar PO 5 mg DAILY ESTUARDO Administration Sodium Chloride 1,000 mls @ 75 mls/hr 04/01/19 23:15 04/03/19 06:39 Nacl 0.9% 1000 Ml IV 75 mls/hr DIRECT ESTUARDO Administration Cefepime HCl 2 gm in 100 mls @ 200 mls/hr 04/03/19 12:30 04/03/19 13:55 Cefepime/Ns 2 Gm/100 Ml IV 200 mls/hr Q24HR ESTUARDO Administration Protocol Miscellaneous Medication 100 mg 04/02/19 10:00 Fluvoxamine Maleate [Fluvoxamine Maleate] PO DAILY ESTUARDO Olanzapine 10 mg 04/02/19 10:00 04/03/19 10:19 Zyprexa PO 10 mg DAILY ESTUARDO Administration Ondansetron HCl 4 mg 04/01/19 23:10 Zofran IV Q8H PRN Nausea And Vomiting Sodium Chloride 10 ml 04/02/19 10:00 04/03/19 10:20 Sodium Chloride Flush Syringe 10 Ml IV 10 ml BID ESTUARDO Administration Sodium Chloride 10 ml 04/01/19 23:10 Sodium Chloride Flush Syringe 10 Ml IV PRN PRN LINE FLUSH Nutrition/Malnutrition Assess - Dietary Evaluation Nutrition/Malnutrition Findings: Nutrition Notes Start: 04/02/19 13:10 Freq: Status: Active Protocol: Document 04/02/19 13:10 LP (Rec: 04/02/19 13:16 LP [id number]) Nutrition Notes Need for Assessment generated from: MD Order Initial or Follow up Assessment Current Diagnosis Acute Kidney Injury,Sepsis, Hypertension Other Pertinent Diagnosis Acute Cystitis, UTI, Seizure, Sacral wound Current Diet Renal Labs/Tests BUN 42 Cr 3.1 Pertinent Medications NS at 75ml/hr Height 6 ft 2 in Weight 77.111 kg [place] Body Weight (kg) 86.36 BMI 21.8 Weight Status Appropriate Subjective/Other Information Consult for TF and supplement. Pt is swallowing fine per RN when taking medications. Pt should not need TF but may need Mechanical soft diet. Pt sleeping at time of visit. GI Symptoms None Minimum of two criteria No physical signs of malnutrition #1 Nutrition Diagnosis Increased nutrient needs ( specify in comment below) Comments: Protein Etiology wound healing As Evidenced by Signs and Symptoms Pt with sacral wound Is patient on ventilator? No Is Patient Ambulatory and/or Out of Bed No REE-([facility]-confined to bed) 9.612 Calculation Used for Recommendations [facility] Additional Notes Protein needs are 93-116g (1.2 -1.5g/kg) Fluid needs are 1ml/kcal Nutrition Intervention Change Diet Order: Renal Add Supplement/Snack (indicate name/kcal Nepro vanilla daily /protein ) Provides kCal: 425 Provides Protein (gm) 19 Goal #1 Meet at least 80% of kcal and protein needs Goal #2 Wound healin Anticipated Discharge Needs: Renal with ONS as needed Follow-Up By: 04/04/19 Additional Comments Follow for intakes and supplement tolerance
[2019-04-04 06:34] LABS: BUN/Creatinine Ratio 22; Blood Urea Nitrogen 11 mg/dL (9-20); Calcium 7.7 mg/dL (8.4-10.2); Hemolysis Index 28
--- NOTE | 2019-04-04 08:34 | Progress Note ---
Assessment and Plan 1. Acute kidney injury: Likely vasomotor WILMAN with ATN in setting of sepsis. Renal US negative for hydro. Renal function is improved, creatinine 0.5 from 1.0. Continue IV fluids. Continue to monitor renal function. Avoid nephrotoxic agents. Meds dosage based on GFR. 2. FEN: Metabolic acidosis, likely 2/2 acute kidney injury, improving, monitor. Hypokalemia: replete, monitor. Hypomagnesemia: replete, monitor. Hypocalcemia: replete, monitor. Monitor lytes. 3. Sepsis: Secondary to UTI from chronic fox. On ABX. 4. Hypertension: 5. Seizure disorder: 6. Autism: Nonverbal. 7. Schizophrenia: Subjective Date of service: 04/04/19 Interval history: Patient was seen and examined at the bedside. No family is present. No acute events overnight. Objective - Exam Narrative Exam: General appearance: well-developed, well-nourished, appears stated age EENT: ATNC, PERRL, mucous membranes moist Neck: Present: neck supple, trachea midline Respiratory: Clear to Ascultation, Normal Exam Heart: regular, normal heart rate, S1S2, no murmurs Gastrointestinal: Present: normal, normoactive bowel sounds. Absent: tenderness, distended, masses Integumentary: no rash, warm and dry, other (sacral wound) Neurologic: other (nonverbal) Musculoskeletal: Present: other (legs contracted, bilateral pedal edema). Absent: erythema Psychiatric: other (calm) - Vital Signs Vital signs: Vital Signs - 12hr 04/03/19 04/03/19 04/04/19 23:05 23:15 00:00 Temperature 98.0 F Pulse Rate 102 H Pulse Rate [ 97 H From Monitor] Respiratory 18 18 Rate Blood Pressure 137/85 O2 Sat by Pulse 100 100 99 Oximetry 04/04/19 04/04/19 04:17 08:25 Temperature 98.0 F Pulse Rate 93 H Pulse Rate [ From Monitor] Respiratory 18 Rate Blood Pressure 147/82 O2 Sat by Pulse 99 100 Oximetry - Lab 04/02/19 06:49 04/04/19 04:54 Most recent lab results Calcium 7.7 mg/dL (8.4-10.2) L 04/04/19 04:54 Phosphorus 3.10 mg/dL (2.5-4.5) 04/03/19 05:16 Magnesium 1.10 mg/dL (1.7-2.3) L 04/04/19 04:54 Urine Creatinine 118.2 mg/dL (0.1-20.0) H 04/02/19 08:59 Urine Sodium 43 mmol/L 04/02/19 08:59 Medications & Allergies - Medications Allergies/Adverse Reactions: Allergies No Known Allergies Allergy (Unverified 05/10/17 11:29) Home Medications: Home Medications Medication Instructions Recorded Confirmed Last Taken Type AtorvaSTATin [Lipitor] 40 mg PO QHS 04/01/19 04/01/19 Unknown History Doxazosin Mesylate [Cardura] 2 mg PO DAILY 04/01/19 04/01/19 Unknown History Finasteride [Proscar] 5 mg PO DAILY 04/01/19 04/01/19 04/01/19 History Fluvoxamine Maleate 100 mg PO DAILY 04/01/19 04/01/19 04/01/19 History Metoprolol [Lopressor] 25 mg PO DAILY 04/01/19 04/01/19 04/01/19 History OLANzapine [ZyPREXA] 10 mg PO DAILY 04/01/19 04/01/19 Unknown History clonazePAM 0.5 mg PO DAILY 04/01/19 04/01/19 04/01/19 History Active Medications: Generic Name Dose Route Start Last Admin Trade Name Freq PRN Reason Stop Dose Admin Acetaminophen 650 mg 04/01/19 23:10 Tylenol [place] Q4H PRN Pain MILD(1-3)/Fever >100.5/BRAR Atorvastatin Calcium 40 mg 04/02/19 22:00 04/04/19 00:21 Lipitor PO 40 mg QHS ESTUARDO Administration Clonazepam 0.5 mg 04/02/19 10:00 04/03/19 10:19 Klonopin PO 0.5 mg DAILY ESTUARDO Administration Finasteride 5 mg 04/02/19 10:00 04/03/19 10:19 Proscar PO 5 mg DAILY ESTUARDO Administration Sodium Chloride 1,000 mls @ 75 mls/hr 04/01/19 23:15 04/03/19 06:39 Nacl 0.9% 1000 Ml IV 75 mls/hr DIRECT ESTUARDO Administration Cefepime HCl 2 gm in 100 mls @ 200 mls/hr 04/03/19 12:30 04/03/19 13:55 Cefepime/Ns 2 Gm/100 Ml IV 200 mls/hr Q24HR ESTUARDO Administration Protocol Calcium Gluconate 1,000 mg/ 110 mls @ 660 mls/hr 04/04/19 08:27 Sodium Chloride IV 04/04/19 08:36 ONCE ONE Magnesium Sulfate 4 gm in 100 mls @ 25 mls/hr 04/04/19 08:28 Magnesium Sulfate 4gm/100ml IV 04/04/19 12:27 ONCE ONE Miscellaneous Medication 100 mg 04/02/19 10:00 Fluvoxamine Maleate [Fluvoxamine Maleate] PO DAILY ESTUARDO Olanzapine 10 mg 04/02/19 10:00 04/03/19 10:19 Zyprexa PO 10 mg DAILY ESTUARDO Administration Ondansetron HCl 4 mg 04/01/19 23:10 Zofran IV Q8H PRN Nausea And Vomiting Potassium Chloride 40 meq 04/04/19 08:26 K-Dur PO 04/04/19 08:27 ONCE ONE Sodium Chloride 10 ml 04/02/19 10:00 04/04/19 00:24 Sodium Chloride Flush Syringe 10 Ml IV 10 ml BID ESTUARDO Administration Sodium Chloride 10 ml 04/01/19 23:10 Sodium Chloride Flush Syringe 10 Ml IV PRN PRN LINE FLUSH
[2019-04-04] MEDS ORDERED: POTASSIUM CHLORIDE ER 20 MEQ TAB PO NR (09:30)
[2019-04-04 09:42] VITALS: BP 130/84
[2019-04-04] MEDS ORDERED: CALCIUM GLUCONATE 1,000 MG in SODIUM CHLORIDE 0.9% 100 ML IV ONE (10:00)
[2019-04-04] MEDS ORDERED: MAGNESIUM SULFATE 4 GM/100 ML BAG IV ONE (10:00)
[2019-04-04] MEDS: CEFEPIME/NS 2 GM/100 ML 2 GM/100 ML BAG IV SCH (11:15)
[2019-04-04] MEDS: clonazePAM 0.5 MG TAB PO SCH (11:17)
[2019-04-04] MEDS: FINASTERIDE 5 MG TAB PO SCH (11:18)
[2019-04-04] MEDS ORDERED: POTASSIUM CHLORIDE ER 20 MEQ TAB PO ONE (11:34)
--- NOTE | 2019-04-04 11:39 | Discharge Summary ---
Providers - Providers Date of Admission: 04/01/19 23:10 Attending physician: ROSALVA MCNAIR MD 04/01/19 23:10 Consult to Physician [CONS] Routine Comment: Consulting Provider: SIMRAN DUBOIS Physician Instructions: Reason For Exam: arf 04/02/19 04:52 Consult to Wound/ET Nurse [CONS] Routine Reason For Exam: wound eval 04/02/19 08:00 Consult to Dietitian/Nutrition [CONS] Routine Physician Instructions: Reason For Exam: Reason for Consult: Pt needs oral supplement 04/02/19 08:31 Consult to Dietitian/Nutrition [CONS] Routine Physician Instructions: Reason For Exam: Reason for Consult: Write/Manage Tube Feeding 04/02/19 08:32 Occupational Therapy Evaluate and Treat [CONS] Routine Comment: Reason For Exam: ADLs evaluation Physical Therapy Evaluation and Treat [CONS] Routine Comment: Reason For Exam: gait evaluation/ambulatory dysfunction 04/02/19 08:34 Consult to Physician [CONS] Routine Comment: Consulting Provider: SEKOU ESPINOSA Physician Instructions: Reason For Exam: Sepsis, uti, pneumonia 04/03/19 16:13 Consult to Case Management [CONS] Routine Services Needed at Discharge: Manager Van Notified:: case management Additional Physician Instructions: SNF Placement as per family request: Abelardo rivera send out [facility]. Primary care physician: COMMODITY TRADER Hospitalization Condition: Stable Hospital course: Patient is a 48-year-old male with a history of seizure, autism, hypertension, schizophrenia was sent to the emergency room from retirement for evaluation of fever. Patient is unable to give a history, nonverbal. Patient has a chronic indwelling Begum, the bulb of the Begum was released by the nurse in the ER, 400 cc of purulent urine gushed out. A new Begum was placed, purulent urine was obtained followed by bloody urine. Patient received IV fluids, cefepime in the emergency room for urinary tract infection * Tmax 103.7F, WBC 14.1, Hgb 9.2, na 134, BUN 42, Cr 5.4 AST 50, ALT 36, AP 114, TB 0.40, albumin 2.9 * UA indicative of UTI * pCXR Impression: Patchy bibasilar airspace density with low lung volumes * Renal US Impression: Echogenic Kidneys, nonspecific but often seen with m edical renal disease Acute renal failure, ATN, vasomotor nephropathy: sp IV fluid Sepsis Urinary tract infection /Pneumonia: sp abx H/o Seizure: stable Schizophrenia: Continue outpatient medications Sacral decubitus, consult wound care Severe malnutrition: 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; op fup Functional quadriplegic suspected, Autistic DVT prophalaxis: sq heparin Disposition: DC-01 TO HOME OR SELFCARE Time spent for discharge: 33 mins Core Measure Documentation - Palliative Care Palliative Care/ Comfort Measures: Not Applicable - Core Measures Any of the following diagnoses?: none Exam - Constitutional Vitals: Temp Pulse Resp BP Pulse Ox 98.0 F 110 H 18 130/84 99 04/04/19 04:17 04/04/19 09:40 04/04/19 04:17 04/04/19 09:40 04/04/19 09:40 General appearance: Present: no acute distress, well-nourished - EENT Eyes: Present: PERRL ENT: hearing intact, clear oral mucosa - Neck Neck: Present: supple, normal ROM - Respiratory Respiratory effort: normal Respiratory: bilateral: CTA - Cardiovascular Heart Sounds: Present: S1 & S2. Absent: rub, click - Extremities Extremities: pulses symmetrical, No edema Peripheral Pulses: within normal limits - Abdominal General gastrointestinal: Present: soft, non-tender, non-distended, normal bowel sounds Male genitourinary: Present: normal - Integumentary Integumentary: Present: clear, warm, dry - Musculoskeletal Musculoskeletal: gait normal, strength equal bilaterally - Psychiatric Psychiatric: appropriate mood/affect, intact judgment & insight - Neurologic Neurologic: CNII-XII intact, moves all extremities Plan Additional Instructions: Begum needs to be exchanged every month. Follow up with: PRIMARY MD BIB [Primary Care Provider] - 7 Days Prescriptions: Ciprofloxacin HCl [Ciprofloxacin TAB] 500 mg PO Q12HR #14 tab
[2019-04-04] MEDS ORDERED: DOXAZOSIN MESYLATE 2 MG PO SCH (11:45)
[2019-04-04] MEDS ORDERED: METOPROLOL TARTRATE 25 MG TAB PO SCH (12:00)
[2019-04-04] MEDS ORDERED: TAMSULOSIN 0.4 MG CAP PO SCH (12:00)
[2019-04-04] MEDS: SODIUM CHLORIDE 0.9% 1000 ML 1,000 ML IV SCH (12:40)
[2019-04-04] MEDS ORDERED: DOXAZOSIN 1 MG TAB PO SCH (13:00)
--- NOTE | 2019-04-04 14:59 | Progress Note ---
Assessment and Plan Cultures: 04/01/2019 blood cultures: pending 04/01/2019 urine cultuers: decker-sensitive Pseudomonas A&P: 48 yo M PMHx autism (non-verbal), HTN, schizophrenia admitted with UTI 2/2 chronic Begum #Acute sepsis - present with fevers and leukocytosis, secondary to UTI #UTI - from chronic Begum. Begum should be replaced monthly. Will exchange Zosyn for cefepime to spare anaerobic coverage, follow up urine culture #WILMAN on CKD - renall dose antibiotics Recommendations: - continue cefepime 2g q24h - ok for discharge from infectious disease perspective on Cipro 500mg q12h to complete 5 days total (stop date: 04/06/2019) - Begum should be exchanged monthly if not possible to be discontinued. Thank you for the consult, will sign off. Please call with questions. Leroy Olmstead MD [facility] ([facility]) M: [phone] O: [phone] F: [phone] Subjective Date of service: 04/04/19 Interval history: Afebrile. Urine cultures with Pseudomonas Objective - Exam Narrative Exam: Constitutional: Non-verbal, no obvious distress Head, Ears, Nose: Normocephalic, atraumatic. External ears, nose normal Eyes: Conjunctivae/corneas clear. Neck: Supple, no meningeal signs Oral: dentition fair, no thrush Cardiovascular: S1, S2 normal. Respiratory: Good air entry, clear to auscultation bilaterally GI: Soft, non-tender; bowel sounds normal. No peritoneal signs. Musculoskeletal: No pedal edema, no cyanosis. Skin: No rash or abscess Hem/Lymphatic: No palpable cervical or supraclavicular nodes. No lymphangitis Psych: Non-verbal Neurological: Awake, non-verbal - Constitutional Vitals: Vital Signs Temp Pulse Resp BP Pulse Ox 98.0 F 110 H 18 130/84 99 04/04/19 04:17 04/04/19 09:40 04/04/19 04:17 04/04/19 09:40 04/04/19 09:40 Temperature -Last 24 Hours Temperature 98.0 F Temperature 98.0 F Temperature 99.6 F Temperature 99.0 F - Labs CBC & Chem 7: 04/02/19 06:49 04/04/19 04:54 Labs: Abnormal lab results 04/04/19 Range/Units 04:54 Potassium 3.3 L (3.6-5.0) mmol/L Creatinine 0.5 L (0.8-1.5) mg/dL Glucose 129 H (75-100) mg/dL Calcium 7.7 L (8.4-10.2) mg/dL Magnesium 1.10 L (1.7-2.3) mg/dL
== END 2019-04-04 18:48 | disposition home or self-care (01) | DRG 698 ==
LOC: ED 18:39 → 4A 23:10
PROVIDERS: ADMIT Internal Medicine; ATTEND Internal Medicine
DX: T83.518A Infection and inflammatory reaction due to other urinary catheter, initial encounter (principal); A41.9 Sepsis, unspecified organism; N17.0 Acute kidney failure with tubular necrosis; J18.9 Pneumonia, unspecified organism; E43 Unspecified severe protein-calorie malnutrition; R53.2 Functional quadriplegia; R65.20 Severe sepsis without septic shock; N30.01 Acute cystitis with hematuria; G40.909 Epilepsy, unspecified, not intractable, without status epilepticus; L89.159 Pressure ulcer of sacral region, unspecified stage; E83.42 Hypomagnesemia; E87.6 Hypokalemia; E83.51 Hypocalcemia; F20.9 Schizophrenia, unspecified; N18.9 Chronic kidney disease, unspecified; I12.9 Hypertensive chronic kidney disease with stage 1 through stage 4 chronic kidney disease, or unspecified chronic kidney disease; Y83.8 Other surgical procedures as the cause of abnormal reaction of the patient, or of later complication, without mention of misadventure at the time of the procedure; Z68.21 Body mass index [BMI] 21.0-21.9, adult; Y92.098 Other place in other non-institutional residence as the place of occurrence of the external cause
CPT/HCPCS: 36415; 71045; 76770; 80048; 80053; 81001; 82140; 82570; 82805; 83735; 84100; 84300; 85025; 85610; 87040; 87076; 87086; 87116; 87186; 89050; 93005; 93010; 94760; 96365; G0378; A9270-GY; J0610; J0692; J2543; J3475; J7030; J7040

== ENCOUNTER 2019-07-29 12:06 | Inpatient (IN) | payer MEDICARE ==
--- NOTE | 2019-07-29 13:07 | Emergency Department Report ---
HPI - General Chief Complaint: Extremity Injury, Lower Time Seen by Provider: 07/29/19 12:58 - HPI HPI: Room 1 The patient is a 48-year-old male present with a chief complaint of right lower extremity swelling. The patient is bedridden and autistic and was sent from home health care after he noticed swelling of the right lower extremity. There is no reported trauma. The patient does not provide history ED Past Medical Hx - Past Medical History Hx Hypertension: Yes Hx Diabetes: Yes Hx Seizures: Yes (Epilepsy) Hx Psychiatric Treatment: Yes (schizopenia) Additional medical history: HLD; Autism; Myopathy - Family History Family history: no significant - Social History Smoking Status: Unknown if ever smoked - Medications Home Medications: Home Medications Medication Instructions Recorded Confirmed Last Taken Type AtorvaSTATin [Lipitor] 40 mg PO QHS 04/01/19 04/01/19 Unknown History Doxazosin Mesylate [Cardura] 2 mg PO DAILY 04/01/19 04/01/19 Unknown History Finasteride [Proscar] 5 mg PO DAILY 04/01/19 04/01/19 04/01/19 History Fluvoxamine Maleate 100 mg PO DAILY 04/01/19 04/01/19 04/01/19 History Metoprolol [Lopressor TAB] 25 mg PO DAILY 04/01/19 04/01/19 04/01/19 History OLANzapine [Zyprexa] 10 mg PO DAILY 04/01/19 04/01/19 Unknown History clonazePAM 0.5 mg PO DAILY 04/01/19 04/01/19 04/01/19 History ALBUTEROL NEB's [Proventil 0.083% 2.5 mg IH Q3HRT PRN nebu 05/24/19 Unknown Rx NEBS] Acetaminophen [Acetaminophen TAB] 325 mg PO Q6H PRN #15 tablet 05/24/19 Unknown Rx levoFLOXacin [Levaquin] 750 mg PO QDAY #11 tablet 05/24/19 Unknown Rx ED Review of Systems ROS: Stated complaint: RT LEG SWELLING Other details as noted in HPI Comment: Unobtainable due to pts medical conditions Physical Exam - Physical Exam Vital Signs: Vital Signs 07/29/19 12:08 Temperature 99.7 F H Pulse Rate 120 H Respiratory 20 Rate Blood Pressure 138/72 [Left] O2 Sat by Pulse 97 Oximetry Physical Exam: GENERAL: The patient is well-developed well-nourished male lying on stretcher not appearing to be in acute distress. [] HEENT: Normocephalic. Atraumatic. Extraocular motions are intact. Patient has moist mucous membranes. NECK: Supple. No meningitic signs are noted. There is no adenopathy noted. CHEST/LUNGS: Clear to auscultation. There is no respiratory distress noted. HEART/CARDIOVASCULAR: Regular. There is tachycardia. There is no gallop rub or murmur. ABDOMEN: Abdomen is soft, nontender. Patient has normal bowel sounds. There is no abdominal distention. SKIN: There is obvious swelling to the right thigh and right lower extremity NEURO: The patient is awake but nonverbal MUSCULOSKELETAL: There is no evidence of acute injury. ED Course Vital Signs 07/29/19 12:08 Temperature 99.7 F H Pulse Rate 120 H Respiratory 20 Rate Blood Pressure 138/72 [Left] O2 Sat by Pulse 97 Oximetry ED Medical Decision Making - Lab Data Result diagrams: 07/29/19 13:46 07/29/19 13:46 Laboratory Tests 07/29/19 07/29/19 07/29/19 13:25 13:46 13:46 WBC 19.3 H RBC 3.24 L Hgb 8.4 L Hct 24.9 L MCV 77 L MCH 26 L MCHC 34 RDW 16.1 H Plt Count 528 H Lymph % (Auto) 4.2 L Greer % (Auto) 12.1 H Eos % (Auto) 0.0 Baso % (Auto) 0.2 Lymph # 0.8 L Greer # 2.3 H Eos # 0.0 Baso # 0.0 Seg Neutrophils % 83.5 H Seg Neutrophils # 16.1 H Sodium 116 L* Potassium 5.1 H Chloride 81.3 L Carbon Dioxide 24 Anion Gap 16 BUN 16 Creatinine 0.3 L Estimated GFR > 60 BUN/Creatinine Ratio 53 Glucose 147 H Calcium 8.6 Total Bilirubin 0.40 AST 46 H ALT 104 H Alkaline Phosphatase 267 H NT-Pro-B Natriuret Pep 422.3 Total Protein 7.0 Albumin 2.3 L Albumin/Globulin Ratio 0.5 Urine Color Aleta Urine Turbidity Cloudy Urine pH 6.0 Ur Specific Barron 1.014 Urine Protein 100 mg/dl Urine Glucose (UA) Neg Urine Ketones Neg Urine Blood Lg Urine Nitrite Neg Urine Bilirubin Neg Urine Urobilinogen 2.0 Ur Leukocyte Esterase Mod Urine WBC (Auto) 119.0 H Urine RBC (Auto) 14.0 U Epithel Cells (Auto) 1.0 Urine WBC Clumps 3+ Urine Mucus Few - Radiology Data Radiology results: image reviewed (Left lower extremity Doppler) [facility] [address] [place] [address] Vascular Lab Report Signed Patient: ANJANA SHARMA MR#: [id number] : 1970 Acct:[id number] Age/Sex: 48 / M ADM Date: 07/29/19 Loc: ED Attending Dr: Ordering Physician: ZEHRA BURDICK MD Date of Service: 07/29/19 Procedure(s): VL venous duplex LE RT Accession Number(s): [id number] cc: ZEHRA BURDICK MD DUPLEX DOPPLER LOWER EXTREMITY VEINS, LEFT INDICATION: swelling. TECHNIQUE: Duplex doppler imaging was performed through the veins of the left lower extremity using venous compression and other maneuvers. COMPARISON: No relevant prior imaging study available. FINDINGS: Left Common femoral vein: Negative. Left Superficial femoral vein: Occlusive thrombus. Left Popliteal vein: Negative. Left Calf veins: Negative. Additional findings: None.. IMPRESSIO N: 1. Study is positive for occlusive deep venous thrombosis. Signer Name: Malcolm Lyn MD Signed: 07/29/2019 2:42 PM Workstation Name: [id number] Transcribed By: ILYA Dictated By: Malcolm Lyn MD Electronically Authenticated By: Malcolm Lyn MD Signed Date/Time: 07/29/19 144 DD/ 144 TD/TT: - Differential Diagnosis DVT Critical care attestation.: If time is entered above; I have spent that time in minutes in the direct care of this critically ill patient, excluding procedure time. ED Disposition Clinical Impression: Hyponatremia, Left leg DVT, UTI (urinary tract infection), Leukocytosis Disposition: OP ADMIT IP TO THIS HOSP Is pt being admited?: Yes Does the pt Need Aspirin: No Condition: Fair Referrals: PRIMARY CARE, [Primary Care Provider] - 3-5 Days Time of Disposition: 14:51 (Hospitalist paged (Dr Joel))
[2019-07-29 14:01] LABS: Bilirubin,Urine NEG (Negative); Blood,Urine LG (Negative); Color,Urine Amber (Yellow); Mucus,Urine FEW /HPF
[2019-07-29 14:03] LABS: Basophils % (Auto) 0.2 % (0.0-1.8); Hematocrit 24.9 % (35.5-45.6); Hemoglobin 8.4 gm/dl (11.8-15.2); Lymphocytes # (Auto) 0.8 K/mm3 (1.2-5.4); Lymphocytes % (Auto) 4.2 % (13.4-35.0); Mean Corpuscular HGB Conc 34 % (32-34); Mean Corpuscular Volume 77 fl (84-94); Monocytes # (Auto) 2.3 K/mm3 (0.0-0.8); Monocytes % (Auto) 12.1 % (0.0-7.3); Platelet Count 528 K/mm3 (140-440); Red Blood Count 3.24 M/mm3 (3.65-5.03); Red Cell Distribution Width 16.1 % (13.2-15.2)
[2019-07-29 14:22] LABS: Alanine Aminotransferase 104 units/L (7-56); Albumin 2.3 g/dL (3.9-5); BUN/Creatinine Ratio 53; Blood Urea Nitrogen 16 mg/dL (9-20); Calcium 8.6 mg/dL (8.4-10.2); Hemolysis Index 7
[2019-07-29] MEDS ORDERED: SODIUM CHLORIDE 0.9% 1000 ML 1,000 ML IV ONE (14:34)
[2019-07-29] MEDS ORDERED: cefTRIAXone/NS 1 GM/50 ML 1 GM/50 ML BAG IV ONE ×2 (14:35→17:02)
--- NOTE | 2019-07-29 14:47 | Vascular Lab Report ---
DUPLEX DOPPLER LOWER EXTREMITY VEINS, LEFT INDICATION: swelling. TECHNIQUE: Duplex doppler imaging was performed through the veins of the left lower extremity using venous compr ession and other maneuvers. COMPARISON: No relevant prior imaging study available. FINDINGS: Left Common femoral vein: Negative. Left Superficial femoral vein: Occlusive thrombus. Left Popliteal vein: Negative. Left Calf veins: Negative. Additional findings: None.. IMPRESSION: 1. Study is positive for occlusive deep venous thrombosis. Signer Name: Malcolm Lyn MD Signed: 07/29/2019 2:42 PM Workstation Name: [id number]
--- NOTE | 2019-07-29 14:55 | History and Physical Report ---
History of Present Illness Chief complaint: His leg is swollen History of present illness: 48 YO Male [facility] Resident with Autism, Myopathy, Seizure Disorder, Schizophrenia, HTN, DM, HLD, Stage IV sacral decubitus ulcer present on admission, chronic Indwelling fox Catheter which is present present at time of admission presents to ED for evaluation. Patient is confused at his baseline and is unable to provide history at the time of my exam. Patient history taken from EMS staff, ED staff, as well as personal [facility] staff. As per staff, the patient had experienced swelling of the right lower leg without trauma and personal care staff are concerned. EMS notified and upon arrival the patient wa s found to be in distress and transported to [facility] for further evaluation and care. Patient seen and evaluated in the emergency department. Lab and imaging studies reviewed. Patient was found to have sepsis suspected secondary to urinary tract infection, left superficial femoral vein DVT, severe hyponatremia, as well as metabolic encephalopathy. Patient initiated on sepsis protocol and admitted to IMCU. Patient treated with IV antibiotic therapy, IV fluid resuscitation therapy and IV antibiotic therapy. No further history obtainable. All medication listed at time of admission has been reconciled. Prior admission on 05/19/2019 reviewed. No further history is obtainable. Patient is unable to provide history but has a positive gag reflex and is able to protect his airway. Advanced care planning conducted in ED. Past History Past Medical History: diabetes, hypertension, hyperlipidemia, seizures, other (See HPI) Past Surgical History: No surgical history, Other (Reviewed) Social history: single. denies: smoking, alcohol abuse, prescription drug abuse Family history: hypertension Medications and Allergies Allergies Allergy/AdvReac Type Severity Reaction Status Date / Time No Known Allergies Allergy Unverified 05/10/17 11:29 Home Medications Medication Instructions Recorded Confirmed Last Taken Type AtorvaSTATin [Lipitor] 40 mg PO QHS 04/01/19 04/01/19 Unknown History Doxazosin Mesylate [Cardura] 2 mg PO DAILY 04/01/19 04/01/19 Unknown History Finasteride [Proscar] 5 mg PO DAILY 04/01/19 04/01/19 04/01/19 History Fluvoxamine Maleate 100 mg PO DAILY 04/01/19 04/01/19 04/01/19 History Metoprolol [Lopressor TAB] 25 mg PO DAILY 04/01/19 04/01/19 04/01/19 History OLANzapine [Zyprexa] 10 mg PO DAILY 04/01/19 04/01/19 Unknown History clonazePAM 0.5 mg PO DAILY 04/01/19 04/01/19 04/01/19 History ALBUTEROL NEB's [Proventil 0.083% 2.5 mg IH Q3HRT PRN nebu 05/24/19 Unknown Rx NEBS] Acetaminophen [Acetaminophen TAB] 325 mg PO Q6H PRN #15 tablet 05/24/19 Unknown Rx levoFLOXacin [Levaquin] 750 mg PO QDAY #11 tablet 05/24/19 Unknown Rx Active Meds: Active Medications Sodium Chloride (Nacl 0.9% 1000 Ml) 1,000 mls @ 999 mls/hr IV ONCE ONE Stop: 07/29/19 15:34 Ceftriaxone Sodium (Rocephin/Ns 1 Gm/50 Ml) 1 gm in 50 mls @ 100 mls/hr IV ONCE ONE; Protocol Stop: 07/29/19 15:04 Review of Systems ROS unobtainable: due to mental status Exam - Constitutional Vitals: Temp Pulse Resp BP Pulse Ox 99.1 F 110 H 20 132/82 100 07/29/19 12:32 07/29/19 12:32 07/29/19 12:32 07/29/19 12:32 07/29/19 12:32 General appearance: Present: mild distress - EENT Eyes: Present: PERRL ENT: hearing decreased, other (Dry oral mucosa) - Neck Neck: Present: supple, normal ROM - Respiratory Respiratory effort: normal Respiratory: bilateral: CTA - Cardiovascular Heart Sounds: Present: S1 & S2. Absent: rub, click - Extremities Extremities: pulses symmetrical, No edema Peripheral Pulses: abnormal (Capillary refill greater than 3.5 seconds) - Abdominal General gastrointestinal: Present: soft, non-tender, non-distended, normal bowel sounds Male genitourinary: Present: normal - Integumentary Integumentary: Present: dry, clammy (Sacral decubitus ulcer present on admission), decreased turgor - Musculoskeletal Musculoskeletal: generalized weakness, other (Contracture) - Psychiatric Psychiatric: appropriate mood/affect, intact judgment & insight - Neurologic Neurologic: CNII-XII intact, moves all extremities Results - Labs CBC & Chem 7: 07/29/19 13:46 07/29/19 13:46 Labs: Abnormal lab results 07/29/19 07/29/19 07/29/19 Range/Units 13:25 13:46 13:46 WBC 19.3 H (4.5-11.0) K/mm3 RBC 3.24 L (3.65-5.03) M/mm3 Hgb 8.4 L (11.8-15.2) gm/dl Hct 24.9 L (35.5-45.6) % MCV 77 L (84-94) fl MCH 26 L (28-32) pg RDW 16.1 H (13.2-15.2) % Plt Count 528 H (140-440) K/mm3 Lymph % (Auto) 4.2 L (13.4-35.0) % Park % (Auto) 12.1 H (0.0-7.3) % Lymph # 0.8 L (1.2-5.4) K/mm3 Park # 2.3 H (0.0-0.8) K/mm3 Seg Neutrophils % 83.5 H (40.0-70.0) % Seg Neutrophils # 16.1 H (1.8-7.7) K/mm3 Sodium 116 L* (137-145) mmol/L Potassium 5.1 H (3.6-5.0) mmol/L Chloride 81.3 L (98-107) mmol/L Creatinine 0.3 L (0.8-1.5) mg/dL Glucose 147 H (75-100) mg/dL AST 46 H (5-40) units/L ALT 104 H (7-56) units/L Alkaline Phosphatase 267 H (35-129) units/L Albumin 2.3 L (3.9-5) g/dL Urine WBC (Auto) 119.0 H (0.0-6.0) /HPF Assessment and Plan - Patient Problems (1) Sepsis Current Visit: No Status: Acute Plan to address problem: Sepsis protocol: CBC, CMP, urinalysis, chest x-ray, IV antibiotic therapy, IV fluid resuscitation therapy, monitor urine output every shift, serial lactic acid level, maintain mean arterial blood pressure greater than or equal to 65, blood cultures. (2) Hyponatremia syndrome Current Visit: Yes Status: Acute Plan to address problem: BMP, repeat BMP in a.m., IV fluid resuscitation therapy, nephrology team consulted. (3) Left leg DVT Current Visit: Yes Status: Acute Qualifiers: Affected thrombotic vein of extremity: other lower extremity vein Chronicity: acute Qualified Code(s): I82.492 - Acute embolism and thrombosis of other specified deep vein of left lower extremity Plan to address problem: Left superficial femoral vein DVT: Therapeutic anticoagulation, left lower extremity duplex, (4) UTI (urinary tract infection) Current Visit: Yes Status: Acute Qualifiers: Encounter type: initial encounter Plan to address problem: CBC, CMP, urinalysis, IV antibiotic therapy. (5) Metabolic encephalopathy Current Visit: Yes Status: Acute Plan to address problem: Supportive care, treat sepsis, seizure precaution, aspiration precautions, neuro check. (6) DVT prophylaxis Current Visit: No Status: Acute Plan to address problem: SCD to bilateral lower extremities while in bed, continue therapeutic anticoagulation. (7) Advance care planning Current Visit: Yes Status: Acute Plan to address problem: Patient is full code, disease education conducted, personal [facility] staff knowledge understanding and agreement with care plan, +30 minutes.
[2019-07-29] MEDS ORDERED: SODIUM CHLORIDE 0.9% 1000 ML IV SOLN IV ONE (14:58)
[2019-07-29] MEDS ORDERED: ONDANSETRON 4 MG/2 ML INJ IV PRN (14:58)
[2019-07-29] MEDS ORDERED: ACETAMINOPHEN 325 MG TAB PO PRN (15:02)
[2019-07-29] MEDS: CEFEPIME/NS 2 GM/100 ML 2 GM/100 ML BAG IV SCH ×2 (16:31→21:38)
[2019-07-29] MEDS ORDERED: CEFEPIME/NS 2 GM/100 ML 2 GM/100 ML BAG IV ONE (17:03)
[2019-07-29] MEDS ORDERED: APIXABAN 5 MG TAB ONE (17:03)
[2019-07-29] MEDS ORDERED: SODIUM CHLORIDE 0.9% 1000 ML 1,000 ML ONE (17:03)
[2019-07-29] MEDS: APIXABAN 5 MG TAB PO SCH ×2 (17:30→21:39)
[2019-07-29 20:03] LABS: BUN/Creatinine Ratio 95; Blood Urea Nitrogen 19 mg/dL (9-20); Calcium 8.5 mg/dL (8.4-10.2); Hemolysis Index 0; Uric Acid 2.7 mg/dL (3.5-7.6)
[2019-07-30] MEDS ORDERED: SODIUM CHLORIDE 0.9% 1000 ML 1,000 ML IV SCH (01:00)
[2019-07-30 05:55] LABS: Hematocrit 23.7 % (35.5-45.6); Hemoglobin 7.8 gm/dl (11.8-15.2); Mean Corpuscular HGB Conc 33 % (32-34); Mean Corpuscular Volume 77 fl (84-94); Platelet Count 512 K/mm3 (140-440); Red Blood Count 3.08 M/mm3 (3.65-5.03); Red Cell Distribution Width 15.9 % (13.2-15.2)
[2019-07-30 06:13] LABS: Alanine Aminotransferase 84 units/L (7-56); Albumin 2.3 g/dL (3.9-5); BUN/Creatinine Ratio 67; Blood Urea Nitrogen 20 mg/dL (9-20); Calcium 8.4 mg/dL (8.4-10.2); Hemolysis Index 0
[2019-07-30 06:51] LABS: Basophils % (Manual) 0 % (0.0-1.8); Eosinophils % (Manual) 0 % (0.0-4.3); Total Cells Counted 200
[2019-07-30 06:56] LABS: Anisocytosis 1+; Hypochromasia 1+; Platelet Estimate Consistent w Auto
[2019-07-30] MEDS ORDERED: DOXAZOSIN MESYLATE 2 MG PO SCH (10:00)
[2019-07-30] MEDS ORDERED: FLUVOXAMINE MALEATE 100 MG PO SCH (10:00)
[2019-07-30] MEDS: CEFEPIME/NS 2 GM/100 ML 2 GM/100 ML BAG IV SCH ×2 (10:45→21:39)
[2019-07-30] MEDS: APIXABAN 5 MG TAB PO SCH ×2 (11:08→21:39)
[2019-07-30] MEDS: DOXAZOSIN 1 MG TAB PO SCH (11:08)
[2019-07-30] MEDS: METOPROLOL TARTRATE 25 MG TAB PO SCH (11:09)
[2019-07-30] MEDS: clonazePAM 0.5 MG TAB PO SCH (11:09)
--- NOTE | 2019-07-30 11:22 | Consultation ---
History of Present Illness - Reason for Consult Consult date: 07/30/19 hyponatremia - History of Present Illness The patient is a 48 YO Male from [facility] with history significant for Autism, Myopathy, Seizure Disorder, Schizophrenia, HTN, DM, HLD, bedbound, Stage IV sacral decubitus ulcer with wound vac and chronic Indwelling fox Catheter who presented to [facility] ED 07/28 for evaluation of LE swelling. Patient is confused and is unable to provide history at the time of my exam. Patient seen and evaluated in the emergency department and diagnosed with sepsis suspected secondary to urinary tract infection, left superficial femoral vein DVT, severe hyponatremia and metabolic encephalopathy. Patient was admitted to [facility], started on IV antibiotic therapy and IV fluids. Sodium level was 116 on admission. Nephrology was consulted for further evaluation. Past History Past Medical History: diabetes, hypertension, hyperlipidemia, seizures, other (See HPI) Past Surgical History: No surgical history, Other (Reviewed) Social history: single. denies: smoking, alcohol abuse, prescription drug abuse Family history: hypertension Medications and Allergies Allergies Allergy/AdvReac Type Severity Reaction Status Date / Time No Known Allergies Allergy Unverified 05/10/17 11:29 Home Medications Medication Instructions Recorded Confirmed Last Taken Type AtorvaSTATin [Lipitor] 40 mg PO QHS 04/01/19 07/29/19 Unknown History Doxazosin Mesylate [Cardura] 2 mg PO DAILY 04/01/19 07/29/19 Unknown History Finasteride [Proscar] 5 mg PO DAILY 04/01/19 07/29/19 04/01/19 History Fluvoxamine Maleate 100 mg PO DAILY 04/01/19 07/29/19 04/01/19 History Metoprolol [Lopressor TAB] 25 mg PO DAILY 04/01/19 07/29/19 04/01/19 History OLANzapine [Zyprexa] 10 mg PO DAILY 04/01/19 07/29/19 Unknown History clonazePAM 0.5 mg PO DAILY 04/01/19 07/29/19 04/01/19 History ALBUTEROL NEB's [Proventil 0.083% 2.5 mg IH Q3HRT PRN nebu 05/24/19 07/29/19 Unknown Rx NEBS] Acetaminophen [Acetaminophen TAB] 325 mg PO Q6H PRN #15 tablet 03/25/20 05/30/20 Unknown Rx levoFLOXacin [Levaquin] 750 mg PO QDAY #11 tablet 05/24/19 07/29/19 Unknown Rx Active Meds: Active Medications Acetaminophen (Tylenol) 650 mg PO Q4H PRN PRN Reason: Pain MILD(1-3)/Fever >100.5/BRAR Acetaminophen (Tylenol) 325 mg PO Q6H PRN PRN Reason: Pain, Mild (1-3) Apixaban (Eliquis) 10 mg PO Q12HR ESTUARDO; Protocol Stop: 08/04/19 22:01 Last Admin: 07/29/19 21:39 Dose: Not Given Documented by: Atorvastatin Calcium (Lipitor) 40 mg PO QHS [facility] Last Admin: 07/29/19 21:38 Dose: Not Given Documented by: Clonazepam (Klonopin) 0.5 mg PO DAILY EST[facility] Doxazosin Mesylate (Cardura) 2 mg PO QDAY [facility] Finasteride (Proscar) 5 mg PO DAILY [facility] Cefepime HCl (Cefepime/Ns 2 Gm/100 Ml) 2 gm in 100 mls @ 200 mls/hr IV Q12HR [facility]; Protocol Last Admin: 07/30/19 10:45 Dose: 200 mls/hr Documented by: Sodium Chloride (Nacl 0.9% 1000 Ml) 1,000 mls @ 100 mls/hr IV DIRECT [facility] Last Admin: 07/30/19 01:33 Dose: 100 mls/hr Documented by: Metoprolol Tartrate (Metoprolol) 25 mg PO DAILY [facility] Olanzapine (Zyprexa) 10 mg PO DAILY [facility] Ondansetron HCl (Zofran) 4 mg IV Q8H PRN PRN Reason: Nausea And Vomiting Sodium Chloride (Sodium Chloride Flush Syringe 10 Ml) 10 ml IV BID [facility] Last Admin: 07/29/19 21:38 Dose: 10 ml Documented by: Sodium Chloride (Sodium Chloride Flush Syringe 10 Ml) 10 ml IV PRN PRN PRN Reason: LINE FLUSH Review of Systems ROS unobtainable: due to mental status Exam - Vital Signs Vital signs: Vital Signs Temp Pulse Resp BP Pulse Ox 99.7 F H 120 H 20 138/72 97 07/29/19 12:08 07/29/19 12:08 07/29/19 12:08 07/29/19 12:08 05/30/20 12:08 - General Appearance General appearance: well-developed, appears stated age, other (no distress) EENT: ATNC, PERRL, hearing intact Neck: Present: trachea midline Respiratory: Clear to Ascultation Heart: regular, tachycardia, S1S2 Gastrointestinal: Present: normoactive bowel sounds, other (: condom catheter). Absent: tenderness, distended Integumentary: decubiti (sacral with wound vac) Neurologic: other (barely able to move his hands, confused, speech muffled) Musculoskeletal: Present: other (extremity contractures noted, muscle atrophy noted) Psychiatric: cooperative Results - Lab Results 07/30/19 05:07 07/30/19 11:48 Most recent lab results Calcium 8.4 mg/dL (8.4-10.2) 07/30/19 05:07 Phosphorus 2.80 mg/dL (2.5-4.5) 07/29/19 18:56 Magnesium 1.70 mg/dL (1.7-2.3) 07/29/19 18:56 Assessment and Plan 1. Hyponatremia: Low sodium is likley secondary to SIADH. Patient was taking SSRI at home. Slight increase in Sodium level noted. Sodium bicarbonate added. Monitor Sodium level. 2. FEN: Mild metabolic acidosis, PO Sodium bicarbonate, monitor. Follow lytes and volume status. 3. Sepsis: Likely from UTI. Pt also has sacral wound. Follow cultures. 4. UTI (urinary tract infection): On Cefepime. 5. Left leg DVT: On Eliquis. 6. Metabolic encephalopathy, POA. 7. Microcytic anemia, POA. 8. Sacral wound, POA: Has wound vac. 9. Myopathy, POA: Bedbound status.
[2019-07-30] MEDS: FINASTERIDE 5 MG TAB PO SCH (11:33)
[2019-07-30] MEDS: SODIUM BICARBONATE 650 MG TAB PO SCH ×2 (14:07→21:39)
--- NOTE | 2019-07-30 16:25 | Progress Note ---
Assessment and Plan - Patient Problems (1) Sepsis Current Visit: No Status: Acute Plan to address problem: Sepsis protocol: Continue IV antibiotic therapy. Vancomycin added to patient antibiotic regimen today. Repeat CBC in a.m., IV antibiotic therapy, IV fluid resuscitation therapy, monitor urine output every shift, maintain mean arterial blood pressure greater than or equal to 65, blood cultures results pending. (2) Hyponatremia syndrome Current Visit: Yes Status: Acute Plan to address problem: BMP, repeat BMP in a.m., IV fluid resuscitation therapy, nephrology team consulted. (3) Left leg DVT Current Visit: Yes Status: Acute Qualifiers: Affected thrombotic vein of extremity: other lower extremity vein Chronicity: acute Qualified Code(s): I82.492 - Acute embolism and thrombosis of other specified deep vein of left lower extremity Plan to address problem: Left superficial femoral vein DVT: Therapeutic anticoagulation, left lower extremity duplex, (4) UTI (urinary tract infection) Current Visit: Yes Status: Acute Qualifiers: Encounter type: initial encounter Plan to address problem: CBC, CMP, urinalysis, IV antibiotic therapy. (5) Metabolic encephalopathy Current Visit: Yes Status: Acute Plan to address problem: Supportive care, treat sepsis, seizure precaution, aspiration precautions, neuro check. (6) Sacral decubitus ulcer, stage IV Current Visit: Yes Status: Acute Plan to address problem: Wound care. Present on admission, supportive care. (7) DVT prophylaxis Current Visit: No Status: Acute Plan to address problem: SCD to bilateral lower extremities while in bed, continue therapeutic anticoagulation. (8) Advance care planning Current Visit: Yes Status: Acute Plan to address problem: Patient is full code, disease education conducted, personal group home staff knowledge understanding and agreement with care plan, +30 minutes. History Interval history: 48 YO Male HD #2 with Sepsis secondary to UTI, Hyponatremia, LLE DVT, Metabolic Encephalopathy, and WILMAN with ATN and Sacral Decub present on admission. Patient initiated on sepsis protocol. Patient leukocytosis has worsened overnight. Patient antibiotic therapy adjusted to include vancomycin. Patient is more alert today. No reported nursing events overnight. Hospitalist Physical - Constitutional Vitals: Temp Pulse Resp BP Pulse Ox 96.2 F L 108 H 21 108/57 100 07/30/19 12:47 07/30/19 15:00 07/30/19 15:00 07/30/19 15:00 07/30/19 14:00 General appearance: Present: mild distress - EENT Eyes: Present: PERRL ENT: hearing intact - Neck Neck: Present: supple - Respiratory Respiratory: bilateral: CTA - Cardiovascular Rhythm: other (Tachycardia) Heart Sounds: Present: S1 & S2 - Extremities Extremities: no ischemia Peripheral Pulses: within normal limits - Abdominal General gastrointestinal: soft, non-distended - Integumentary Integumentary: Present: clear, dry (Sacral decubitus ulcer.) - Psychiatric Psychiatric: no appropriate mood/affect, no intact judgment & insight, no memory intact - Neurologic Neurologic: CNII-XII intact, moves all extremities, no gait normal Results - Labs CBC & Chem 7: 07/30/19 05:07 07/30/19 11:48 Labs: Laboratory Last Values WBC 21.1 K/mm3 (4.5-11.0) H 07/30/19 05:07 RBC 3.08 M/mm3 (3.65-5.03) L 07/30/19 05:07 Hgb 7.8 gm/dl (11.8-15.2) L 07/30/19 05:07 Hct 23.7 % (35.5-45.6) L 07/30/19 05:07 MCV 77 fl (84-94) L 07/30/19 05:07 MCH 25 pg (28-32) L 07/30/19 05:07 MCHC 33 % (32-34) 07/30/19 05:07 RDW 15.9 % (13.2-15.2) H 07/30/19 05:07 Plt Count 512 K/mm3 (140-440) H 07/30/19 05:07 Lymph % (Auto) 4.2 % (13.4-35.0) L 07/29/19 13:46 [place] % (Auto) 12.1 % (0.0-7.3) H 07/29/19 13:46 Eos % (Auto) 0.0 % (0.0-4.3) 07/29/19 13:46 Baso % (Auto) 0.2 % (0.0-1.8) 07/29/19 13:46 Lymph # 0.8 K/mm3 (1.2-5.4) L 07/29/19 13:46 [place] # 2.3 K/mm3 (0.0-0.8) H 07/29/19 13:46 Eos # 0.0 K/mm3 (0.0-0.4) 07/29/19 13:46 Baso # 0.0 K/mm3 (0.0-0.1) 07/29/19 13:46 Add Manual Diff Complete 07/30/19 05:07 Total Counted 200 07/30/19 05:07 Seg Neutrophils % 83.5 % (40.0-70.0) H 07/29/19 13:46 Seg Neuts % (Manual) 97.5 % (40.0-70.0) H 07/30/19 05:07 Band Neutrophils % 0 % 07/30/19 05:07 Lymphocytes % (Manual) 1.5 % (13.4-35.0) L 07/30/19 05:07 Reactive Lymphs % (Man) 0 % 07/30/19 05:07 Monocytes % (Manual) 1.0 % (0.0-7.3) 07/30/19 05:07 Eosinophils % (Manual) 0 % (0.0-4.3) 07/30/19 05:07 Basophils % (Manual) 0 % (0.0-1.8) 07/30/19 05:07 Metamyelocytes % 0 % 07/30/19 05:07 Myelocytes % 0 % 07/30/19 05:07 Promyelocytes % 0 % 07/30/19 05:07 Blast Cells % 0 % 07/30/19 05:07 Nucleated RBC % Not Reportable 07/30/19 05:07 Seg Neutrophils # 16.1 K/mm3 (1.8-7.7) H 07/29/19 13:46 Seg Neutrophils # Man 20.6 K/mm3 (1.8-7.7) H 07/30/19 05:07 Band Neutrophils # 0.0 K/mm3 07/30/19 05:07 Lymphocytes # (Manual) 0.3 K/mm3 (1.2-5.4) L 07/30/19 05:07 Abs React Lymphs (Man) 0.0 K/mm3 07/30/19 05:07 Monocytes # (Manual) 0.2 K/mm3 (0.0-0.8) 07/30/19 05:07 Eosinophils # (Manual) 0.0 K/mm3 (0.0-0.4) 07/30/19 05:07 Basophils # (Manual) 0.0 K/mm3 (0.0-0.1) 07/30/19 05:07 Metamyelocytes # 0.0 K/mm3 07/30/19 05:07 Myelocytes # 0.0 K/mm3 07/30/19 05:07 Promyelocytes # 0.0 K/mm3 07/30/19 05:07 Blast Cells # 0.0 K/mm3 07/30/19 05:07 WBC Morphology Not Reportable 07/30/19 05:07 Hypersegmented Neuts Not Reportable 07/30/19 05:07 Hyposegmented Neuts Not Reportable 07/30/19 05:07 Hypogranular Neuts Not Reportable 07/30/19 05:07 Smudge Cells Not Reportable 07/30/19 05:07 Toxic Granulation Not Reportable 07/30/19 05:07 Toxic Vacuolation Not Reportable 07/30/19 05:07 Dohle Bodies Not Reportable 07/30/19 05:07 Pelger-Huet Anomaly Not Reportable 07/30/19 05:07 Cyn Rods Not Reportable 07/30/19 05:07 Platelet Estimate Consistent w auto 07/30/19 05:07 Clumped Platelets Not Reportable 07/30/19 05:07 Plt Clumps, EDTA Not Reportable 07/30/19 05:07 Large Platelets Not Reportable 07/30/19 05:07 Giant Platelets Not Reportable 07/30/19 05:07 Platelet Satelliting Not Reportable 07/30/19 05:07 Plt Morphology Comment Not Reportable 07/30/19 05:07 RBC Morphology Not Reportable 07/30/19 05:07 Dimorphic RBCs Not Reportable 07/30/19 05:07 Polychromasia Not Reportable 07/30/19 05:07 Hypochromasia 1+ 07/30/19 05:07 Poikilocytosis Not Reportable 07/30/19 05:07 Anisocytosis 1+ 07/30/19 05:07 Microcytosis Not Reportable 07/30/19 05:07 Macrocytosis Not Reportable 07/30/19 05:07 Spherocytes Not Reportable 07/30/19 05:07 Pappenheimer Bodies Not Reportable 07/30/19 05:07 Sickle Cells Not Reportable 07/30/19 05:07 Target Cells Not Reportable 07/30/19 05:07 Tear Drop Cells Not Reportable 07/30/19 05:07 Ovalocytes Not Reportable 07/30/19 05:07 Helmet Cells Not Reportable 07/30/19 05:07 [place] Bodies Not Reportable 07/30/19 05:07 [place] Rings Not Reportable 07/30/19 05:07 Stan[place] Cells Not Reportable 07/30/19 05:07 Bite Cells Not Reportable 07/30/19 05:07 Crenated Cell Not Reportable 07/30/19 05:07 Elliptocytes Not Reportable 07/30/19 05:07 Acanthocytes (Spur) Not Reportable 07/30/19 05:07 Rouleaux Not Reportable 07/30/19 05:07 Hemoglobin C Crystals Not Reportable 07/30/19 05:07 Schistocytes Not Reportable 07/30/19 05:07 Malaria parasites Not Reportable 07/30/19 05:07 Carlo Bodies Not Reportable 07/30/19 05:07 Hem Pathologist Commnt No 07/30/19 05:07 Sodium 118 mmol/L (137-145) L* 07/30/19 11:48 Potassium 4.7 mmol/L (3.6-5.0) 07/30/19 05:07 Chloride 83.9 mmol/L (98-107) L 07/30/19 05:07 Carbon Dioxide 21 mmol/L (22-30) L 07/30/19 05:07 Anion Gap 19 mmol/L 07/30/19 05:07 BUN 20 mg/dL (9-20) 07/30/19 05:07 Creatinine 0.3 mg/dL (0.8-1.5) L 07/30/19 05:07 Estimated GFR > 60 ml/min 07/30/19 05:07 BUN/Creatinine Ratio 67 % 07/30/19 05:07 Glucose 95 mg/dL (75-100) 07/30/19 05:07 POC Glucose 104 (70-105) 07/30/19 11:43 Osmolality 248 Mosm/kg 07/29/19 18:56 Lactic Acid 0.70 mmol/L (0.7-2.0) 07/29/19 21:32 Uric Acid 2.7 mg/dL (3.5-7.6) L 07/29/19 18:56 Calcium 8.4 mg/dL (8.4-10.2) 07/30/19 05:07 Phosphorus 2.80 mg/dL (2.5-4.5) 07/29/19 18:56 Magnesium 1.70 mg/dL (1.7-2.3) 07/29/19 18:56 Total Bilirubin 0.60 mg/dL (0.1-1.2) 07/30/19 05:07 AST 35 units/L (5-40) 07/30/19 05:07 ALT 84 units/L (7-56) H 07/30/19 05:07 Alkaline Phosphatase 220 units/L (35-129) H 07/30/19 05:07 NT-Pro-B Natriuret Pep 422.3 pg/mL (0-450) 07/29/19 13:46 Total Protein 6.3 g/dL (6.3-8.2) 07/30/19 05:07 Albumin 2.3 g/dL (3.9-5) L 07/30/19 05:07 Albumin/Globulin Ratio 0.6 % 07/30/19 05:07 Urine Color Aleta (Yellow) 07/29/19 13:25 Urine Turbidity Cloudy (Clear) 07/29/19 13:25 Urine pH 6.0 (5.0-7.0) 07/29/19 13:25 Ur Specific [place] 1.014 (1.003-1.030) 07/29/19 13:25 Urine Protein 100 mg/dl mg/dL (Negative) 07/29/19 13:25 Urine Glucose (UA) Neg mg/dL (Negative) 07/29/19 13:25 Urine Ketones Neg mg/dL (Negative) 07/29/19 13:25 Urine Blood Lg (Negative) 07/29/19 13:25 Urine Nitrite Neg (Negative) 07/29/19 13:25 Urine Bilirubin Neg (Negative) 07/29/19 13:25 Urine Urobilinogen 2.0 mg/dL (<2.0) 07/29/19 13:25 Ur Leukocyte Esterase Mod (Negative) 07/29/19 13:25 Urine WBC (Auto) 119.0 /HPF (0.0-6.0) H 07/29/19 13:25 Urine RBC (Auto) 14.0 /HPF (0.0-6.0) 07/29/19 13:25 U Epithel Cells (Auto) 1.0 /HPF (0-13.0) 07/29/19 13:25 Urine WBC Clumps 3+ /HPF 07/29/19 13:25 Urine Mucus Few /HPF 07/29/19 13:25 Urine Osmolality 535 Mosm/kg 07/29/19 21:00 Microbiology: Microbiology 07/29/19 15:26 Peripheral/Venous Blood Culture - Preliminary Staphylococcus Aureus 07/29/19 15:21 Peripheral/Venous Blood Culture - Preliminary Staphylococcus Aureus Begum/IV: Voiding Method Condom Catheter IV Catheter Type [Left INT / Saline Lock Antecubital] Active Medications - Current Medications Current Medications: Generic Name Dose Route Start Last Admin Trade Name Freq PRN Reason Stop Dose Admin Acetaminophen 650 mg 07/29/19 14:58 Tylenol PO Q4H PRN Pain MILD(1-3)/Fever >100.5/BRAR Acetaminophen 325 mg 07/29/19 15:02 Tylenol PO Q6H PRN Pain, Mild (1-3) Apixaban 10 mg 07/29/19 15:02 07/30/19 11:08 Eliquis PO 08/04/19 22:01 10 mg Q12HR ESTUARDO Administration Protocol Atorvastatin Calcium 40 mg 07/29/19 22:00 07/29/19 21:38 Lipitor PO Not Given QHS ESTUARDO Clonazepam 0.5 mg 07/30/19 10:00 07/30/19 11:09 Klonopin PO 0.5 mg DAILY ESTUARDO Administration Doxazosin Mesylate 2 mg 07/30/19 10:00 07/30/19 11:08 Cardura PO 2 mg QDAY ESTUARDO Administration Finasteride 5 mg 07/30/19 10:00 07/30/19 11:33 Proscar PO 5 mg DAILY ESTUARDO Administration Cefepime HCl 2 gm in 100 mls @ 200 mls/hr 07/29/19 22:00 07/30/19 10:45 Cefepime/Ns 2 Gm/100 Ml IV 200 mls/hr Q12HR ESTUARDO Administration Protocol Metoprolol Tartrate 25 mg 07/30/19 10:00 07/30/19 11:09 Metoprolol PO 25 mg DAILY ESTUARDO Administration Olanzapine 10 mg 07/30/19 10:00 07/30/19 11:33 Zyprexa PO 10 mg DAILY ESTUARDO Administration Ondansetron HCl 4 mg 07/29/19 14:58 Zofran IV Q8H PRN Nausea And Vomiting Sodium Bicarbonate 1,300 mg 07/30/19 14:00 07/30/19 14:07 Sodium Bicarbonate PO 1,300 mg TID ESTUARDO Administration Sodium Chloride 10 ml 07/29/19 22:00 07/30/19 11:23 Sodium Chloride Flush Syringe 10 Ml IV 10 ml BID ESTUARDO Administration Sodium Chloride 10 ml 07/29/19 14:58 Sodium Chloride Flush Syringe 10 Ml IV PRN PRN LINE FLUSH
[2019-07-30] MEDS ORDERED: VANCOMYCIN/NS 1 GM/250 ML 1 GM/250 ML BAG IV SCH (17:00)
[2019-07-30] MEDS ORDERED: VANCOMYCIN PHARMACY TO DOSE IV SCH (17:00)
[2019-07-30] MEDS: VANCOMYCIN 1,250 MG in SODIUM CHLORIDE 0.9% 250ML 250 ML IV SCH (18:27)
[2019-07-30] MEDS: ACETAMINOPHEN 325 MG TAB PO PRN (21:39)
[2019-07-30] MEDS ORDERED: SODIUM CHLORIDE 1 GM TAB PO ONE (22:04)
[2019-07-31] MEDS: ACETAMINOPHEN 325 MG TAB PO PRN ×2 (05:10→23:51)
[2019-07-31] MEDS: VANCOMYCIN 1,250 MG in SODIUM CHLORIDE 0.9% 250ML 250 ML IV SCH ×3 (05:10→22:24)
[2019-07-31 06:43] LABS: BUN/Creatinine Ratio 60; Blood Urea Nitrogen 12 mg/dL (9-20); Calcium 8.2 mg/dL (8.4-10.2)
[2019-07-31] MEDS: SODIUM BICARBONATE 650 MG TAB PO SCH ×3 (09:43→20:29)
[2019-07-31] MEDS: SODIUM CHLORIDE 1 GM TAB PO SCH ×2 (09:44→13:26)
[2019-07-31] MEDS: DOXAZOSIN 1 MG TAB PO SCH (09:45)
[2019-07-31] MEDS: APIXABAN 5 MG TAB PO SCH ×2 (09:45→22:27)
[2019-07-31] MEDS: METOPROLOL TARTRATE 25 MG TAB PO SCH (09:45)
[2019-07-31] MEDS: FINASTERIDE 5 MG TAB PO SCH (09:45)
[2019-07-31] MEDS: CEFEPIME/NS 2 GM/100 ML 2 GM/100 ML BAG IV SCH ×2 (09:47→22:22)
[2019-07-31] MEDS: clonazePAM 0.5 MG TAB PO SCH (09:47)
--- NOTE | 2019-07-31 10:04 | Progress Note ---
Assessment and Plan 1. 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 Patient was taking SSRI at home. Sodium level is increasing gradually, now 122. Sodium bicarbonate and salt tabs. Monitor Sodium level closely. 2. FEN: Mild metabolic acidosis, PO Sodium bicarbonate, improving, monitor. Follow lytes and volume status. 3. Sepsis: Likely from UTI. Pt also has sacral wound. Follow cultures. 4. UTI (urinary tract infection): On Cefepime. 5. Left leg DVT: On Eliquis. 6. Metabolic encephalopathy, POA. 7. Microcytic anemia, POA. 8. Sacral wound, POA: Has wound vac. 9. Myopathy, POA: Bedbound status. Subjective Date of service: 07/31/19 Interval history: Patient was seen and examined at the bedside. No acute events reported overnight. Objective - Exam Narrative Exam: General appearance: well-developed, appears stated age, sleeping, no distress noted EENT: ATNC, PERRL, hearing intact, mucus membranes dry Neck: Present: trachea midline Respiratory: Clear to Ascultation Heart: regular, tachycardic, S1S2 Gastrointestinal: normoactive bowel sounds, no tenderness, not distended : condom cath Integumentary: decubiti (sacral with wound vac) Neurologic: minimal movement on hands, will awaken briefly but goes right back to sleep, no verbal communication attempted Musculoskeletal: extremity contractures and muscle atrophy noted Psychiatric: cooperative - Vital Signs Vital signs: Vital Signs - 12hr 07/30/19 07/30/19 07/30/19 23:01 23:07 23:20 Temperature Pulse Rate 122 H 122 H 116 H Pulse Rate [ From Monitor] Respiratory 26 H 24 Rate Blood Pressure 108/55 108/55 O2 Sat by Pulse 98 97 Oximetry 07/31/19 07/31/19 07/31/19 00:00 01:01 02:01 Temperature 99.9 F H Pulse Rate 110 H 111 H 114 H Pulse Rate [ 109 H From Monitor] Respiratory 24 22 18 Rate Blood Pressure 116/70 116/70 116/70 O2 Sat by Pulse 94 94 Oximetry 07/31/19 07/31/19 07/31/19 03:00 03:01 03:32 Temperature Pulse Rate 104 H 104 H Pulse Rate [ 103 H From Monitor] Respiratory 21 20 Rate Blood Pressure 116/70 O2 Sat by Pulse 98 Oximetry 07/31/19 07/31/19 07/31/19 04:00 07:34 08:00 Temperature 99.6 F 97.6 F Pulse Rate Pulse Rate [ From Monitor] Respiratory Rate Blood Pressure O2 Sat by Pulse 96 Oximetry 07/31/19 09:45 Temperature Pulse Rate Pulse Rate [ From Monitor] Respiratory Rate Blood Pressure 111/72 O2 Sat by Pulse Oximetry - Lab 07/30/19 05:07 07/31/19 05:23 Most recent lab results Calcium 8.2 mg/dL (8.4-10.2) L 07/31/19 05:23 Phosphorus 2.80 mg/dL (2.5-4.5) 07/29/19 18:56 Magnesium 1.70 mg/dL (1.7-2.3) 07/29/19 18:56 Medications & Allergies - Medications Allergies/Adverse Reactions: Allergies No Known Allergies Allergy (Unverified 05/10/17 11:29) Home Medications: Home Medications Medication Instructions Recorded Confirmed Last Taken Type AtorvaSTATin [Lipitor] 40 mg PO QHS 04/01/19 07/29/19 Unknown History Doxazosin Mesylate [Cardura] 2 mg PO DAILY 04/01/19 07/29/19 Unknown History Finasteride [Proscar] 5 mg PO DAILY 04/01/19 07/29/19 04/01/19 History Fluvoxamine Maleate 100 mg PO DAILY 04/01/19 07/29/19 04/01/19 History Metoprolol [Lopressor TAB] 25 mg PO DAILY 04/01/19 07/29/19 04/01/19 History OLANzapine [Zyprexa] 10 mg PO DAILY 04/01/19 07/29/19 Unknown History clonazePAM 0.5 mg PO DAILY 04/01/19 07/29/19 04/01/19 History ALBUTEROL NEB's [Proventil 0.083% 2.5 mg IH Q3HRT PRN nebu 05/24/19 07/29/19 Unknown Rx NEBS] Acetaminophen [Acetaminophen TAB] 325 mg PO Q6H PRN #15 tablet 05/24/19 07/29/19 Unknown Rx levoFLOXacin [Levaquin] 750 mg PO QDAY #11 tablet 05/24/19 07/29/19 Unknown Rx Active Medications: Generic Name Dose Route Start Last Admin Trade Name Freq PRN Reason Stop Dose Admin Acetaminophen 650 mg 07/29/19 14:58 07/31/19 05:10 Tylenol PO 650 mg Q4H PRN Administration Pain MILD(1-3)/Fever >100.5/BRAR Acetaminophen 325 mg 07/29/19 15:02 Tylenol PO Q6H PRN Pain, Mild (1-3) Apixaban 10 mg 07/29/19 15:02 07/31/19 09:45 Eliquis PO 08/04/19 22:01 10 mg Q12HR ESTUARDO Administration Protocol Atorvastatin Calcium 40 mg 07/29/19 22:00 07/30/19 21:39 Lipitor PO 40 mg QHS ESTUARDO Administration Clonazepam 0.5 mg 07/30/19 10:00 07/31/19 09:47 Klonopin PO 0.5 mg DAILY ESTUARDO Administration Doxazosin Mesylate 2 mg 07/30/19 10:00 07/31/19 09:45 Cardura PO 2 mg QDAY ESTUARDO Administration Finasteride 5 mg 07/30/19 10:00 07/31/19 09:45 Proscar PO 5 mg DAILY ESTUARDO Administration Cefepime HCl 2 gm in 100 mls @ 200 mls/hr 07/29/19 22:00 07/31/19 09:47 Cefepime/Ns 2 Gm/100 Ml IV 200 mls/hr Q12HR ESTUARDO Administration Protocol Vancomycin HCl 1,250 mg/ 275 mls @ 137.5 mls/hr 07/30/19 18:00 07/31/19 09:50 Sodium Chloride IV 137.5 mls/hr Q8H ESTUARDO Administration Metoprolol Tartrate 25 mg 07/30/19 10:00 07/31/19 09:45 Metoprolol PO 25 mg DAILY ESTUARDO Administration Olanzapine 10 mg 07/30/19 10:00 07/31/19 09:47 Zyprexa PO 10 mg DAILY ESTUARDO Administration Ondansetron HCl 4 mg 07/29/19 14:58 Zofran IV Q8H PRN Nausea And Vomiting Sodium Bicarbonate 1,300 mg 07/30/19 14:00 07/31/19 09:43 Sodium Bicarbonate PO 1,300 mg TID ESTUARDO Administration Sodium Chloride 10 ml 07/29/19 22:00 07/31/19 09:48 Sodium Chloride Flush Syringe 10 Ml IV 10 ml BID ESTUARDO Administration Sodium Chloride 10 ml 07/29/19 14:58 Sodium Chloride Flush Syringe 10 Ml IV PRN PRN LINE FLUSH Sodium Chloride 2 gm 07/31/19 08:00 07/31/19 09:44 Sodium Chloride PO 2 gm TID ESTUARDO Administration
--- NOTE | 2019-07-31 21:19 | Progress Note ---
Assessment and Plan - Patient Problems (1) Sepsis Current Visit: No Status: Acute Plan to address problem: Sepsis protocol: Continue IV antibiotic therapy. Vancomycin added to patient antibiotic regimen today. Repeat CBC in a.m., IV antibiotic therapy, IV fluid resuscitation therapy, monitor urine output every shift, maintain mean arterial blood pressure greater than or equal to 65, blood cultures results pending. (2) Hyponatremia syndrome Current Visit: Yes Status: Acute Plan to address problem: BMP, repeat BMP in a.m., IV fluid resuscitation therapy, nephrology team consulted. (3) Left leg DVT Current Visit: Yes Status: Acute Qualifiers: Affected thrombotic vein of extremity: other lower extremity vein Chronicity: acute Qualified Code(s): I82.492 - Acute embolism and thrombosis of other specified deep vein of left lower extremity Plan to address problem: Left superficial femoral vein DVT: Therapeutic anticoagulation, left lower extremity duplex, (4) UTI (urinary tract infection) Current Visit: Yes Status: Acute Qualifiers: Encounter type: initial encounter Plan to address problem: CBC, CMP, urinalysis, IV antibiotic therapy. (5) Metabolic encephalopathy Current Visit: Yes Status: Acute Plan to address problem: Supportive care, treat sepsis, seizure precaution, aspiration precautions, neuro check. (6) Sacral decubitus ulcer, stage IV Current Visit: Yes Status: Acute Plan to address problem: Wound care. Present on admission, supportive care. (7) DVT prophylaxis Current Visit: No Status: Acute Plan to address problem: SCD to bilateral lower extremities while in bed, continue therapeutic anticoagulation. (8) Advance care planning Current Visit: Yes Status: Acute Plan to address problem: Patient is full code, disease education conducted, personal group home staff knowledge understanding and agreement with care plan, +30 minutes. History Interval history: 48 YO Male HD #4 with Sepsis secondary to UTI, Hyponatremia, LLE DVT, Metabolic Encephalopathy, and WILMAN with ATN and Sacral Decub present on admission. Patient initiated on sepsis protocol. Patient leukocytosis has worsened overnight. Patient antibiotic therapy adjusted to include vancomycin. Patient is more alert today. No reported nursing events overnight. Plan to transfer to floor in AM. Hospitalist Physical - Constitutional Vitals: Temp Pulse Resp BP Pulse Ox 99.1 F 110 H 19 119/74 100 07/31/19 16:00 07/31/19 17:07/31/19 17:07/31/19 17:01 07/31/19 20:33 General appearance: Present: mild distress Results - Labs CBC & Chem 7: 07/30/19 05:07 07/31/19 20:01 Labs: Laboratory Last Values WBC 21.1 K/mm3 (4.5-11.0) H 07/30/19 05:07 RBC 3.08 M/mm3 (3.65-5.03) L 07/30/19 05:07 Hgb 7.8 gm/dl (11.8-15.2) L 07/30/19 05:07 Hct 23.7 % (35.5-45.6) L 07/30/19 05:07 MCV 77 fl (84-94) L 07/30/19 05:07 MCH 25 pg (28-32) L 07/30/19 05:07 MCHC 33 % (32-34) 07/30/19 05:07 RDW 15.9 % (13.2-15.2) H 07/30/19 05:07 Plt Count 512 K/mm3 (140-440) H 07/30/19 05:07 Lymph % (Auto) 4.2 % (13.4-35.0) L 07/29/19 13:46 I[place]quois % (Auto) 12.1 % (0.0-7.3) H 07/29/19 13:46 Eos % (Auto) 0.0 % (0.0-4.3) 07/29/19 13:46 Baso % (Auto) 0.2 % (0.0-1.8) 07/29/19 13:46 Lymph # 0.8 K/mm3 (1.2-5.4) L 07/29/19 13:46 [place]quois # 2.3 K/mm3 (0.0-0.8) H 07/29/19 13:46 Eos # 0.0 K/mm3 (0.0-0.4) 07/29/19 13:46 Baso # 0.0 K/mm3 (0.0-0.1) 07/29/19 13:46 Add Manual Diff Complete 07/30/19 05:07 Total Counted 200 07/30/19 05:07 Seg Neutrophils % 83.5 % (40.0-70.0) H 07/29/19 13:46 Seg Neuts % (Manual) 97.5 % (40.0-70.0) H 07/30/19 05:07 Band Neutrophils % 0 % 07/30/19 05:07 Lymphocytes % (Manual) 1.5 % (13.4-35.0) L 07/30/19 05:07 Reactive Lymphs % (Man) 0 % 07/30/19 05:07 Monocytes % (Manual) 1.0 % (0.0-7.3) 07/30/19 05:07 Eosinophils % (Manual) 0 % (0.0-4.3) 07/30/19 05:07 Basophils % (Manual) 0 % (0.0-1.8) 07/30/19 05:07 Metamyelocytes % 0 % 07/30/19 05:07 Myelocytes % 0 % 07/30/19 05:07 Promyelocytes % 0 % 07/30/19 05:07 Blast Cells % 0 % 07/30/19 05:07 Nucleated RBC % Not Reportable 07/30/19 05:07 Seg Neutrophils # 16.1 K/mm3 (1.8-7.7) H 07/29/19 13:46 Seg Neutrophils # Man 20.6 K/mm3 (1.8-7.7) H 07/30/19 05:07 Band Neutrophils # 0.0 K/mm3 07/30/19 05:07 Lymphocytes # (Manual) 0.3 K/mm3 (1.2-5.4) L 07/30/19 05:07 Abs React Lymphs (Man) 0.0 K/mm3 07/30/19 05:07 Monocytes # (Manual) 0.2 K/mm3 (0.0-0.8) 07/30/19 05:07 Eosinophils # (Manual) 0.0 K/mm3 (0.0-0.4) 07/30/19 05:07 Basophils # (Manual) 0.0 K/mm3 (0.0-0.1) 07/30/19 05:07 Metamyelocytes # 0.0 K/mm3 07/30/19 05:07 Myelocytes # 0.0 K/mm3 07/30/19 05:07 Promyelocytes # 0.0 K/mm3 07/30/19 05:07 Blast Cells # 0.0 K/mm3 07/30/19 05:07 WBC Morphology Not Reportable 07/30/19 05:07 Hypersegmented Neuts Not Reportable 07/30/19 05:07 Hyposegmented Neuts Not Reportable 07/30/19 05:07 Hypogranular Neuts Not Reportable 07/30/19 05:07 Smudge Cells Not Reportable 07/30/19 05:07 Toxic Granulation Not Reportable 07/30/19 05:07 Toxic Vacuolation Not Reportable 07/30/19 05:07 Dohle Bodies Not Reportable 07/30/19 05:07 Pelger-Huet Anomaly Not Reportable 07/30/19 05:07 Cyn Rods Not Reportable 07/30/19 05:07 Platelet Estimate Consistent w auto 07/30/19 05:07 Clumped Platelets Not Reportable 07/30/19 05:07 Plt Clumps, EDTA Not Reportable 07/30/19 05:07 Large Platelets Not Reportable 07/30/19 05:07 Giant Platelets Not Reportable 07/30/19 05:07 Platelet Satelliting Not Reportable 07/30/19 05:07 Plt Morphology Comment Not Reportable 07/30/19 05:07 RBC Morphology Not Reportable 07/30/19 05:07 Dimorphic RBCs Not Reportable 07/30/19 05:07 Polychromasia Not Reportable 07/30/19 05:07 Hypochromasia 1+ 07/30/19 05:07 Poikilocytosis Not Reportable 07/30/19 05:07 Anisocytosis 1+ 07/30/19 05:07 Microcytosis Not Reportable 07/30/19 05:07 Macrocytosis Not Reportable 07/30/19 05:07 Spherocytes Not Reportable 07/30/19 05:07 Pappenheimer Bodies Not Reportable 07/30/19 05:07 Sickle Cells Not Reportable 07/30/19 05:07 Target Cells Not Reportable 07/30/19 05:07 Tear Drop Cells Not Reportable 07/30/19 05:07 Ovalocytes Not Reportable 07/30/19 05:07 Helmet Cells Not Reportable 07/30/19 05:07 Ball-Olds Bodies Not Reportable 07/30/19 05:07 Gardiner Rings Not Reportable 07/30/19 05:07 Stanislaw Cells Not Reportable 07/30/19 05:07 Bite Cells Not Reportable 07/30/19 05:07 Crenated Cell Not Reportable 07/30/19 05:07 Elliptocytes Not Reportable 07/30/19 05:07 Acanthocytes (Spur) Not Reportable 07/30/19 05:07 Rouleaux Not Reportable 07/30/19 05:07 Hemoglobin C Crystals Not Reportable 07/30/19 05:07 Schistocytes Not Reportable 07/30/19 05:07 Malaria parasites Not Reportable 07/30/19 05:07 Carlo Bodies Not Reportable 07/30/19 05:07 Hem Pathologist Commnt No 07/30/19 05:07 Sodium 122 mmol/L (137-145) L 07/31/19 20:01 Potassium 4.3 mmol/L (3.6-5.0) 07/31/19 05:23 Chloride 88.6 mmol/L (98-107) L 07/31/19 05:23 Carbon Dioxide 22 mmol/L (22-30) 07/31/19 05:23 Anion Gap 16 mmol/L 07/31/19 05:23 BUN 12 mg/dL (9-20) 07/31/19 05:23 Creatinine 0.2 mg/dL (0.8-1.5) L 07/31/19 05:23 Estimated GFR > 60 ml/min 07/31/19 05:23 BUN/Creatinine Ratio 60 % 07/31/19 05:23 Glucose 124 mg/dL (75-100) H 07/31/19 05:23 POC Glucose 173 (70-105) H 07/30/19 18:03 Osmolality 248 Mosm/kg 07/29/19 18:56 Lactic Acid 0.70 mmol/L (0.7-2.0) 07/29/19 21:32 Uric Acid 2.7 mg/dL (3.5-7.6) L 07/29/19 18:56 Calcium 8.2 mg/dL (8.4-10.2) L 07/31/19 05:23 Phosphorus 2.80 mg/dL (2.5-4.5) 07/29/19 18:56 Magnesium 1.70 mg/dL (1.7-2.3) 07/29/19 18:56 Total Bilirubin 0.60 mg/dL (0.1-1.2) 07/30/19 05:07 AST 35 units/L (5-40) 07/30/19 05:07 ALT 84 units/L (7-56) H 07/30/19 05:07 Alkaline Phosphatase 220 units/L (35-129) H 07/30/19 05:07 NT-Pro-B Natriuret Pep 422.3 pg/mL (0-450) 07/29/19 13:46 Total Protein 6.3 g/dL (6.3-8.2) 07/30/19 05:07 Albumin 2.3 g/dL (3.9-5) L 07/30/19 05:07 Albumin/Globulin Ratio 0.6 % 07/30/19 05:07 Urine Color Aleta (Yellow) 07/29/19 13:25 Urine Turbidity Cloudy (Clear) 07/29/19 13:25 Urine pH 6.0 (5.0-7.0) 07/29/19 13:25 Ur Specific Wray 1.014 (1.003-1.030) 07/29/19 13:25 Urine Protein 100 mg/dl mg/dL (Negative) 07/29/19 13:25 Urine Glucose (UA) Neg mg/dL (Negative) 07/29/19 13:25 Urine Ketones Neg mg/dL (Negative) 07/29/19 13:25 Urine Blood Lg (Negative) 07/29/19 13:25 Urine Nitrite Neg (Negative) 07/29/19 13:25 Urine Bilirubin Neg (Negative) 07/29/19 13:25 Urine Urobilinogen 2.0 mg/dL (<2.0) 07/29/19 13:25 Ur Leukocyte Esterase Mod (Negative) 07/29/19 13:25 Urine WBC (Auto) 119.0 /HPF (0.0-6.0) H 07/29/19 13:25 Urine RBC (Auto) 14.0 /HPF (0.0-6.0) 07/29/19 13:25 U Epithel Cells (Auto) 1.0 /HPF (0-13.0) 07/29/19 13:25 Urine WBC Clumps 3+ /HPF 07/29/19 13:25 Urine Mucus Few /HPF 07/29/19 13:25 Urine Osmolality 535 Mosm/kg 05/30/20 21:00 Microbiology: Microbiology 07/29/19 15:21 Peripheral/Venous Blood Culture - Preliminary Methicillin Resist S. Aureus 07/29/19 15:26 Peripheral/Venous Blood Culture - Preliminary Staphylococcus Aureus 07/29/19 21:00 Urine,Catheterized - Indwelling Catheter Urine Culture - Preliminary Begum/IV: Voiding Method Condom Catheter IV Catheter Type [Left Peripheral IV Antecubital] Active Medications - Current Medications Current Medications: Generic Name Dose Route Start Last Admin Trade Name Freq PRN Reason Stop Dose Admin Acetaminophen 650 mg 07/29/19 14:58 07/31/19 05:10 Tylenol PO 650 mg Q4H PRN Administration Pain MILD(1-3)/Fever >100.5/BRAR Acetaminophen 325 mg 07/29/19 15:02 Tylenol PO Q6H PRN Pain, Mild (1-3) Apixaban 10 mg 07/29/19 15:02 07/31/19 09:45 Eliquis PO 08/04/19 22:01 10 mg Q12HR ESTUARDO Administration Protocol Atorvastatin Calcium 40 mg 07/29/19 22:00 07/30/19 21:39 Lipitor PO 40 mg QHS ESTUARDO Administration Clonazepam 0.5 mg 07/30/19 10:00 07/31/19 09:47 Klonopin PO 0.5 mg DAILY ESTUARDO Administration Doxazosin Mesylate 2 mg 07/30/19 10:00 07/31/19 09:45 Cardura PO 2 mg QDAY ESTUARDO Administration Finasteride 5 mg 07/30/19 10:00 07/31/19 09:45 Proscar PO 5 mg DAILY ESTUARDO Administration Cefepime HCl 2 gm in 100 mls @ 200 mls/hr 07/29/19 22:00 07/31/19 09:47 Cefepime/Ns 2 Gm/100 Ml IV 200 mls/hr Q12HR ESTUARDO Administration Protocol Vancomycin HCl 1,250 mg/ 275 mls @ 137.5 mls/hr 07/31/19 22:00 Sodium Chloride IV Q8HR ESTUARDO Metoprolol Tartrate 25 mg 07/30/19 10:00 07/31/19 09:45 Metoprolol PO 25 mg DAILY ESTUARDO Administration Olanzapine 10 mg 07/30/19 10:00 07/31/19 09:47 Zyprexa PO 10 mg DAILY ESTUARDO Administration Ondansetron HCl 4 mg 07/29/19 14:58 Zofran IV Q8H PRN Nausea And Vomiting Sodium Bicarbonate 1,300 mg 07/30/19 14:00 07/31/19 20:29 Sodium Bicarbonate PO 1,300 mg TID ESTUARDO Administration Sodium Chloride 10 ml 07/29/19 22:00 07/31/19 09:48 Sodium Chloride Flush Syringe 10 Ml IV 10 ml BID ESTUARDO Administration Sodium Chloride 10 ml 07/29/19 14:58 Sodium Chloride Flush Syringe 10 Ml IV PRN PRN LINE FLUSH Sodium Chloride 2 gm 07/31/19 08:00 07/31/19 13:26 Sodium Chloride PO 2 gm TID ESTUARDO Administration Nutrition/Malnutrition Assess - Dietary Evaluation Nutrition/Malnutrition Findings: Nutrition Notes Start: 07/31/19 08:18 Freq: Status: Active Protocol: Document 07/31/19 08:18 LP (Rec: 07/31/19 08:30 LP [id number]) Nutrition Notes Need for Assessment generated from: refractory technician,MST Initial or Follow up Assessment Current Diagnosis Decubitus(Pressure Ulcer), Diabetes,Sepsis,Hypertension Other Pertinent Diagnosis UTI, stage 4 sacral wound, metabolic encephalopathy Current Diet Regular diet Labs/Tests Na 122 BG 124 Pertinent Medications Reviewed Height 6 ft Weight 83.95 kg [place] Body Weight (kg) 80.90 BMI 25.1 Weight Status Overweight Subjective/Other Information Screen for MST and skin risk ( 16). Pt with general edema. [employer] evaluation with no problems chewing or swallowing . No intakes recorded. Burn Absent Trauma Absent GI Symptoms None Current % PO Negligible Minimum of two criteria Yes Fluid Accumulation Mild (non-severe) Protein-Calorie Malnutrition Non-Severe #2 Nutrition Diagnosis Increased nutrient needs ( specify in comment below) Comments: Protein Etiology Wound healing As Evidenced by Signs and Symptoms Pt has stage 4 sacral wound #1 Nutrition Diagnosis Malnutrition Etiology chronic illness As Evidenced by Signs and Symptoms Pt with general edema, unable to obtain nutrition hx, and stage 4 sacral wound Is patient on ventilator? No Is Patient Ambulatory and/or Out of Bed No REE-([facility]-confined to bed) [phone] Calculation Used for Recommendations [facility] Additional Notes Protein needs are 101-126g (1. 2-1.5g/kg) Fluid needs are 1ml/kcal Nutrition Intervention Change Diet Order: Continue Add Supplement/Snack (indicate name/kcal Ensure High Protein BID /protein ) Provides kCal: 320 Provides Protein (gm) 32 Goal #1 Meet at least 80% of kcal and protein needs Goal #2 wound healing Anticipated Discharge Needs: Consistent CHO diet with ONS BID Follow-Up By: 08/02/19 Additional Comments Follow for intakes and ONS tolerance
[2019-07-31] MEDS ORDERED: TOLVAPTAN 15 MG TAB PO ONE (22:19)
[2019-08-01] MEDS: VANCOMYCIN 1,250 MG in SODIUM CHLORIDE 0.9% 250ML 250 ML IV SCH ×3 (05:38→23:20)
[2019-08-01 05:42] LABS: Basophils # (Auto) 0.2 K/mm3 (0.0-0.1); Basophils % (Auto) 0.8 % (0.0-1.8); Eosinophils % (Auto) 0.2 % (0.0-4.3); Hematocrit 22.8 % (35.5-45.6); Hemoglobin 7.3 gm/dl (11.8-15.2); Lymphocytes # (Auto) 1.4 K/mm3 (1.2-5.4); Lymphocytes % (Auto) 7.2 % (13.4-35.0); Mean Corpuscular HGB Conc 32 % (32-34); Mean Corpuscular Volume 78 fl (84-94); Monocytes % (Auto) 10.1 % (0.0-7.3); Platelet Count 480 K/mm3 (140-440); Red Blood Count 2.92 M/mm3 (3.65-5.03); Red Cell Distribution Width 15.8 % (13.2-15.2)
[2019-08-01 06:01] LABS: BUN/Creatinine Ratio 45; Blood Urea Nitrogen 9 mg/dL (9-20); Calcium 8.3 mg/dL (8.4-10.2); Hemolysis Index 4
--- NOTE | 2019-08-01 10:09 | Progress Note ---
Assessment and Plan 1. 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 Patient was taking SSRI at home. Sodium level initially showing little improvement. Sodium bicarbonate and salt tabs. S/p one dose Tolvaptan 07/30. Sodium level has increased gradually, currently 134. Monitor Sodium level closely. 2. FEN: Mild metabolic acidosis, PO Sodium bicarbonate, improving, monitor. Follow lytes and volume status. 3. Sepsis: Likely from UTI. Pt also has sacral wound. Follow cultures. 4. UTI (urinary tract infection): On Cefepime. 5. Left leg DVT: On Eliquis. 6. Metabolic encephalopathy, POA. 7. Microcytic anemia, POA. 8. Sacral wound, POA: Has wound vac. 9. Myopathy, POA: Bedbound status. Subjective Date of service: 08/01/19 Interval history: Patient was seen and examined at the bedside. No acute events reported overnight. Objective - Exam Narrative Exam: General appearance: well-developed, appears stated age, sleeping, no distress noted EENT: ATNC, PERRL, hearing intact Neck: Present: trachea midline Respiratory: Clear to Ascultation Heart: regular, tachycardic, S1S2 Gastrointestinal: normoactive bowel sounds, no tenderness, not distended : condom cath Integumentary: decubiti (sacral with wound vac) Neurologic: minimal movement on hands, awake, some incoherent verbal communication Musculoskeletal: extremity contractures and muscle atrophy noted Psychiatric: cooperative - Vital Signs Vital signs: Vital Signs - 12hr 07/31/19 08/01/19 08/01/19 23:01 00:00 01:01 Temperature 99.4 F Pulse Rate 129 H 115 H 113 H Pulse Rate [ 114 H From Monitor] Respiratory 26 H 20 22 Rate Blood Pressure 126/97 132/72 107/59 O2 Sat by Pulse 100 100 98 Oximetry 08/01/19 08/01/19 08/01/19 02:00 03:00 04:00 Temperature 99.2 F Pulse Rate 116 H 112 H 119 H Pulse Rate [ 117 H From Monitor] Respiratory 23 16 20 Rate Blood Pressure 104/62 102/72 113/68 O2 Sat by Pulse 98 99 94 Oximetry 08/01/19 08/01/19 08/01/19 05:00 06:00 07:00 Temperature Pulse Rate 115 H 122 H 105 H Pulse Rate [ From Monitor] Respiratory 18 24 16 Rate Blood Pressure 95/59 95/59 123/73 O2 Sat by Pulse 97 100 98 Oximetry 08/01/19 07:55 Temperature 98.4 F Pulse Rate Pulse Rate [ From Monitor] Respiratory Rate Blood Pressure O2 Sat by Pulse Oximetry - Lab 08/01/19 04:24 08/01/19 20:41 Most recent lab results Calcium 8.3 mg/dL (8.4-10.2) L 08/01/19 04:24 Phosphorus 2.80 mg/dL (2.5-4.5) 07/29/19 18:56 Magnesium 1.70 mg/dL (1.7-2.3) 07/29/19 18:56 Medications & Allergies - Medications Allergies/Adverse Reactions: Allergies No Known Allergies Allergy (Unverified 05/10/17 11:29) Home Medications: Home Medications Medication Instructions Recorded Confirmed Last Taken Type AtorvaSTATin [Lipitor] 40 mg PO QHS 04/01/19 07/29/19 Unknown History Doxazosin Mesylate [Cardura] 2 mg PO DAILY 04/01/19 07/29/19 Unknown History Finasteride [Proscar] 5 mg PO DAILY 04/01/19 07/29/19 04/01/19 History Fluvoxamine Maleate 100 mg PO DAILY 04/01/19 07/29/19 04/01/19 History Metoprolol [Lopressor TAB] 25 mg PO DAILY 04/01/19 07/29/19 04/01/19 History OLANzapine [Zyprexa] 10 mg PO DAILY 04/01/19 07/29/19 Unknown History clonazePAM 0.5 mg PO DAILY 04/01/19 07/29/19 04/01/19 History ALBUTEROL NEB's [Proventil 0.083% 2.5 mg IH Q3HRT PRN nebu 05/24/19 07/29/19 U nknown Rx NEBS] Acetaminophen [Acetaminophen TAB] 325 mg PO Q6H PRN #15 tablet 05/24/19 07/29/19 Unknown Rx levoFLOXacin [Levaquin] 750 mg PO QDAY #11 tablet 05/24/19 07/29/19 Unknown Rx Active Medications: Generic Name Dose Route Start Last Admin Trade Name Freq PRN Reason Stop Dose Admin Acetaminophen 650 mg 07/29/19 14:58 07/31/19 23:51 Tylenol PO 650 mg Q4H PRN Administration Pain MILD(1-3)/Fever >100.5/BRAR Acetaminophen 325 mg 07/29/19 15:02 Tylenol PO Q6H PRN Pain, Mild (1-3) Apixaban 10 mg 07/29/19 15:02 07/31/19 22:27 Eliquis PO 08/04/19 22:01 10 mg Q12HR ESTUARDO Administration Protocol Apixaban 5 mg 08/05/19 10:00 Eliquis PO Q12HR ESTUARDO Atorvastatin Calcium 40 mg 07/29/19 22:00 07/31/19 22:27 Lipitor PO 40 mg QHS ESTUARDO Administration Clonazepam 0.5 mg 07/30/19 10:00 07/31/19 09:47 Klonopin PO 0.5 mg DAILY ESTUARDO Administration Doxazosin Mesylate 2 mg 07/30/19 10:00 07/31/19 09:45 Cardura PO 2 mg QDAY ESTUARDO Administration Finasteride 5 mg 07/30/19 10:00 07/31/19 09:45 Proscar PO 5 mg DAILY ESTUARDO Administration Cefepime HCl 2 gm in 100 mls @ 200 mls/hr 07/29/19 22:00 07/31/19 22:22 Cefepime/Ns 2 Gm/100 Ml IV 08/03/19 10:29 200 mls/hr Q12HR ESTUARDO Administration Protocol Vancomycin HCl 1,250 mg/ 275 mls @ 137.5 mls/hr 07/31/19 22:00 08/01/19 05:38 Sodium Chloride IV 137.5 mls/hr Q8HR ESTUARDO Administration Metoprolol Tartrate 25 mg 07/30/19 10:00 07/31/19 09:45 Metoprolol PO 25 mg DAILY ESTUARDO Administration Olanzapine 10 mg 07/30/19 10:00 07/31/19 09:47 Zyprexa PO 10 mg DAILY ESTUARDO Administration Ondansetron HCl 4 mg 07/29/19 14:58 Zofran IV Q8H PRN Nausea And Vomiting Sodium Chloride 10 ml 07/29/19 22:00 07/31/19 22:24 Sodium Chloride Flush Syringe 10 Ml IV 10 ml BID ESTUARDO Administration Sodium Chloride 10 ml 07/29/19 14:58 Sodium Chloride Flush Syringe 10 Ml IV PRN PRN LINE FLUSH
[2019-08-01] MEDS: DOXAZOSIN 1 MG TAB PO SCH (10:56)
[2019-08-01] MEDS: CEFEPIME/NS 2 GM/100 ML 2 GM/100 ML BAG IV SCH ×2 (10:57→22:07)
[2019-08-01] MEDS: clonazePAM 0.5 MG TAB PO SCH (10:57)
[2019-08-01] MEDS: FINASTERIDE 5 MG TAB PO SCH (10:57)
[2019-08-01] MEDS: APIXABAN 5 MG TAB PO SCH ×2 (10:58→22:08)
[2019-08-01] MEDS: METOPROLOL TARTRATE 25 MG TAB PO SCH (10:58)
[2019-08-01] MEDS: ACETAMINOPHEN 325 MG TAB PO PRN (15:53)
--- NOTE | 2019-08-01 23:14 | Progress Note ---
Assessment and Plan Day #4-08/01/2019 Afebrile No overnight events (1) Sepsis Current Visit: No Status: Acute Plan to address problem: Sepsis protocol: Continue IV antibiotic therapy. Vancomycin added to patient antibiotic regimen today. Repeat CBC in a.m., IV antibiotic therapy, IV fluid resuscitation therapy, monitor urine output every shift, maintain mean arterial blood pressure greater than or equal to 65, blood cultures results pending. Blood cultures positive for MRSA Patient started on vancomycin IV (2) Hyponatremia syndrome Current Visit: Yes Status: Acute Plan to address problem: likely secondary to SIADH. Inadequate response to Salt tablets and Sodium bicarbonate. S/p one dose of Tolvaptan 07/30. Sodium level improving gradually (3) Left leg DVT Current Visit: Yes Status: Acute Qualifiers: Affected thrombotic vein of extremity: other lower extremity vein Chronicity: acute Qualified Code(s): I82.492 - Acute embolism and thrombosis of other specified deep vein of left lower extremity Plan to address problem: Left superficial femoral vein DVT: Therapeutic anticoagulation, left lower extremity duplex, (4) UTI (urinary tract infection) Current Visit: Yes Status: Acute Qualifiers: Encounter type: initial encounter Plan to address problem: Continue IV antibiotics Urine cultures negative till now On cefepime (5) Metabolic encephalopathy Current Visit: Yes Status: Acute Plan to address problem: Supportive care, treat sepsis, seizure precaution, aspiration precautions, neuro check. (6) Sacral decubitus ulcer, stage IV Current Visit: Yes Status: Acute Plan to address problem: Wound care. Present on admission, supportive care. (7) DVT prophylaxis Current Visit: No Status: Acute Plan to address problem: SCD to bilateral lower extremities while in bed, continue therapeutic anticoagulation. (8) Advance care planning Current Visit: Yes Status: Acute Plan to address problem: Patient is full code, disease education conducted, personal [facility] staff k nowledge understanding and agreement with care plan, +30 minutes. Subjective Date of service: 08/01/19 Principal diagnosis: Severe hyponatremia, SIADH Interval history: 48 YO Male HD #4 with Sepsis secondary to UTI, Hyponatremia, LLE DVT, Metabolic Encephalopathy, and WILMAN with ATN and Sacral Decub present on admission. Patient initiated on sepsis protocol. Patient leukocytosis has worsened overnight. P atient antibiotic therapy adjusted to include vancomycin. Patient is more alert today. No reported nursing events overnight. Objective - Constitutional Vitals: Vital Signs - 12hr 08/01/19 08/01/19 08/01/19 12:00 12:21 13:00 Temperature 99.2 F Pulse Rate 107 H 114 H Pulse Rate [ 108 H From Monitor] Respiratory 25 H 24 Rate Blood Pressure 132/83 134/96 O2 Sat by Pulse 96 99 Oximetry 08/01/19 08/01/19 08/01/19 14:00 15:00 16:00 Temperature 101.2 F H Pulse Rate 116 H 115 H 117 H Pulse Rate [ 112 H From Monitor] Respiratory 21 18 18 Rate Blood Pressure 112/70 120/77 134/86 O2 Sat by Pulse 98 99 98 Oximetry 08/01/19 08/01/19 08/01/19 17:00 18:00 18:35 Temperature 98.3 F Pulse Rate 113 H 107 H Pulse Rate [ From Monitor] Respiratory 21 21 Rate Blood Pressure 116/68 115/72 O2 Sat by Pulse 98 97 Oximetry 08/01/19 20:00 Temperature 98.7 F Pulse Rate Pulse Rate [ From Monitor] Respiratory Rate Blood Pressure O2 Sat by Pulse Oximetry General appearance: Present: no acute distress, well-nourished - EENT Eyes: PERRL, EOM intact ENT: hearing intact, clear oral mucosa Ears: bilateral: normal - Neck Neck: supple, normal ROM - Respiratory Respiratory effort: normal Respiratory: bilateral: CTA - Breasts Breasts: normal - Cardiovascular Rhythm: regular Heart Sounds: Present: S1 & S2. Absent: gallop, rub Extremities: pulses intact, No edema, normal color, Full ROM - Gastrointestinal General gastrointestinal: Present: soft, non-tender, non-distended, normal bowel sounds - Genitourinary Male genitourinary: normal - Integumentary Integumentary: clear, warm, dry - Musculoskeletal Musculoskeletal: 1, strength equal bilaterally - Neurologic Neurologic: moves all extremities - Psychiatric Psychiatric: memory intact, appropriate mood/affect, intact judgment & insight - Labs CBC & Chem 7: 08/01/19 04:24 08/01/19 20:41 Labs: Abnormal lab results 08/01/19 08/01/19 08/01/19 Range/Units 04:24 04:24 13:21 WBC 19.5 H (4.5-11.0) K/mm3 RBC 2.92 L (3.65-5.03) M/mm3 Hgb 7.3 L (11.8-15.2) gm/dl Hct 22.8 L (35.5-45.6) % MCV 78 L (84-94) fl MCH 25 L (28-32) pg RDW 15.8 H (13.2-15.2) % Plt Count 480 H (140-440) K/mm3 Lymph % (Auto) 7.2 L (13.4-35.0) % Rains % (Auto) 10.1 H (0.0-7.3) % Rains # 2.0 H (0.0-0.8) K/mm3 Baso # 0.2 H (0.0-0.1) K/mm3 Seg Neutrophils % 81.7 H (40.0-70.0) % Seg Neutrophils # 15.9 H (1.8-7.7) K/mm3 Sodium 128 L 132 L (137-145) mmol/L Chloride 93.6 L (98-107) mmol/L Creatinine 0.2 L (0.8-1.5) mg/dL Glucose 127 H (75-100) mg/dL Calcium 8.3 L (8.4-10.2) mg/dL 08/01/19 Range/Units 20:41 WBC (4.5-11.0) K/mm3 RBC (3.65-5.03) M/mm3 Hgb (11.8-15.2) gm/dl Hct (35.5-45.6) % MCV (84-94) fl MCH (28-32) pg RDW (13.2-15.2) % Plt Count (140-440) K/mm3 Lymph % (Auto) (13.4-35.0) % Rains % (Auto) (0.0-7.3) % Rains # (0.0-0.8) K/mm3 Baso # (0.0-0.1) K/mm3 Seg Neutrophils % (40.0-70.0) % Seg Neutrophils # (1.8-7.7) K/mm3 Sodium 134 L (137-145) mmol/L Chloride (98-107) mmol/L Creatinine (0.8-1.5) mg/dL Glucose (75-100) mg/dL Calcium (8.4-10.2) mg/dL
[2019-08-02] MEDS: ACETAMINOPHEN 325 MG TAB PO PRN (04:10)
[2019-08-02] MEDS: VANCOMYCIN 1,250 MG in SODIUM CHLORIDE 0.9% 250ML 250 ML IV SCH ×2 (05:47→14:33)
[2019-08-02 05:49] LABS: Basophils # (Auto) 0.1 K/mm3 (0.0-0.1); Basophils % (Auto) 0.4 % (0.0-1.8); Eosinophils # (Auto) 0.1 K/mm3 (0.0-0.4); Eosinophils % (Auto) 0.4 % (0.0-4.3); Hematocrit 20.7 % (35.5-45.6); Hemoglobin 6.6 gm/dl (11.8-15.2); Lymphocytes # (Auto) 1.7 K/mm3 (1.2-5.4); Lymphocytes % (Auto) 10.1 % (13.4-35.0); Mean Corpuscular HGB Conc 32 % (32-34); Mean Corpuscular Volume 78 fl (84-94); Monocytes % (Auto) 11.8 % (0.0-7.3); Platelet Count 449 K/mm3 (140-440); Red Blood Count 2.65 M/mm3 (3.65-5.03); Red Cell Distribution Width 16.1 % (13.2-15.2)
[2019-08-02 06:09] LABS: Alanine Aminotransferase 80 units/L (7-56); Albumin 2.1 g/dL (3.9-5); BUN/Creatinine Ratio 30; Blood Urea Nitrogen 6 mg/dL (9-20); Calcium 8.4 mg/dL (8.4-10.2); Hemolysis Index 0
[2019-08-02] MEDS ORDERED: DOXAZOSIN 1 MG TAB ONE (10:00)
[2019-08-02] MEDS ORDERED: SODIUM CHLORIDE 1 GM TAB PO SCH (10:00)
[2019-08-02] MEDS: DOXAZOSIN 1 MG TAB PO SCH (10:06)
[2019-08-02] MEDS: METOPROLOL TARTRATE 25 MG TAB PO SCH (10:07)
[2019-08-02] MEDS: clonazePAM 0.5 MG TAB PO SCH (10:07)
[2019-08-02] MEDS: APIXABAN 5 MG TAB PO SCH (10:08)
[2019-08-02] MEDS: FINASTERIDE 5 MG TAB PO SCH (10:08)
--- NOTE | 2019-08-02 11:51 | Progress Note ---
Assessment and Plan 1. 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 Patient was taking SSRI at home. Sodium level initially showing little improvement. Sodium bicarbonate and salt tabs. S/p one dose Tolvaptan 07/30. Sodium level has increased gradually, currently 133. Monitor Sodium level closely. 2. FEN: Mild metabolic acidosis, PO Sodium bicarbonate, improving, monitor. Follow lytes and volume status. 3. Sepsis: Likely from UTI. Pt also has sacral wound. Follow cultures. 4. UTI (urinary tract infection): On abx. 5. Left leg DVT: On Eliquis. 6. Metabolic encephalopathy, POA. 7. Microcytic anemia, POA. 8. Sacral wound, POA: Has wound vac. 9. Myopathy, POA: Bedbound status. Subjective Date of service: 08/02/19 Principal diagnosis: Severe hyponatremia, SIADH Interval history: Patient was seen and examined at the bedside. No acute events reported overnight. Objective - Exam Narrative Exam: General appearance: well-developed, appears stated age, no distress noted EENT: ATNC, PERRL, hearing intact Neck: Present: trachea midline Respiratory: Clear to Ascultation Heart: regular, tachycardic, S1S2 Gastrointestinal: normoactive bowel sounds, no tenderness, not distended : condom cath Integumentary: decubiti (sacral with wound vac) Neurologic: minimal movement on hands, awake, some incoherent verbal communic ation Musculoskeletal: extremity contractures and muscle atrophy noted Psychiatric: cooperative - Vital Signs Vital signs: Vital Signs - 12hr 08/02/19 08/02/19 08/02/19 00:00 00:02 01:00 Temperature 99.5 F Pulse Rate 115 H 115 H 119 H Pulse Rate [ 115 H From Monitor] Respiratory 21 22 24 Rate Blood Pressure 129/71 129/71 110/59 O2 Sat by Pulse 98 97 97 Oximetry 08/02/19 08/02/19 08/02/19 02:00 03:00 04:00 Temperature 102.2 F H Pulse Rate 114 H 123 H 118 H Pulse Rate [ 116 H From Monitor] Respiratory 30 H 19 23 Rate Blood Pressure 114/62 110/65 96/56 O2 Sat by Pulse 95 98 97 Oximetry 08/02/19 08/02/19 08/02/19 05:00 05:10 06:00 Temperature Pulse Rate 108 H 106 H Pulse Rate [ From Monitor] Respiratory 21 20 18 Rate Blood Pressure 93/57 111/85 O2 Sat by Pulse 99 100 Oximetry 08/02/19 08/02/19 10:06 10:07 Temperature Pulse Rate 114 H 114 H Pulse Rate [ From Monitor] Respiratory Rate Blood Pressure 109/77 109/77 O2 Sat by Pulse Oximetry - Lab 08/02/19 04:48 08/02/19 04:48 Most recent lab results Calcium 8.4 mg/dL (8.4-10.2) 08/02/19 04:48 Phosphorus 2.80 mg/dL (2.5-4.5) 07/29/19 18:56 Magnesium 1.70 mg/dL (1.7-2.3) 07/29/19 18:56 Medications & Allergies - Medications Allergies/Adverse Reactions: Allergies No Known Allergies Allergy (Unverified 05/10/17 11:29) Home Medications: Home Medications Medication Instructions Recorded Confirmed Last Taken Type Doxazosin Mesylate [Cardura] 2 mg PO DAILY 04/01/19 07/29/19 Unknown History Finasteride [Proscar] 5 mg PO DAILY 04/01/19 07/29/19 04/01/19 History Fluvoxamine Maleate 100 mg PO DAILY 04/01/19 07/29/19 04/01/19 History OLANzapine [Zyprexa] 10 mg PO DAILY 04/01/19 07/29/19 Unknown History ALBUTEROL NEB's [Proventil 0.083% 2.5 mg IH Q3HRT PRN nebu 05/24/19 07/29/19 Unknown Rx NEBS] Acetaminophen [Acetaminophen TAB] 325 mg PO Q6H PRN #15 tablet 05/24/19 07/29/19 Unknown Rx Apixaban [Eliquis] 5 mg PO Q12HR tablet 08/02/19 Unknown Rx Doxazosin [Cardura] 2 mg PO QDAY tablet 08/02/19 Unknown Rx Finasteride [Proscar] 5 mg PO DAILY tablet 08/02/19 Unknown Rx Metoprolol [Lopressor TAB] 25 mg PO DAILY tablet 08/02/19 Unknown Rx Sodium Chloride 1 gm PO TID tablet 08/02/19 Unknown Rx Vancomycin/0.9 % Sod Chloride 1.5 gm IV Q24H #28 plast..bag 08/02/19 Unknown Rx [Vanco 1.5 gm/250 ml-0.9% NaCl] cefTRIAXone [Ceftriaxone] 2 gm IV Q24H #28 vial 08/02/19 Unknown Rx clonazePAM [KlonoPIN] 0.5 mg PO DAILY tablet 08/02/19 Unknown Rx Active Medications: Generic Name Dose Route Start Last Admin Trade Name Freq PRN Reason Stop Dose Admin Acetaminophen 650 mg 07/29/19 14:58 08/02/19 04:10 Tylenol PO 650 mg Q4H PRN Administration Pain MILD(1-3)/Fever >100.5/BRAR Acetaminophen 325 mg 07/29/19 15:02 Tylenol PO Q6H PRN Pain, Mild (1-3) Apixaban 10 mg 07/29/19 15:02 08/02/19 10:08 Eliquis PO 08/04/19 22:01 10 mg Q12HR ESTUARDO Administration Protocol Apixaban 5 mg 08/05/19 10:00 Eliquis PO Q12HR ESTUARDO Atorvastatin Calcium 40 mg 07/29/19 22:00 08/01/19 22:08 Lipitor PO 40 mg QHS ESTUARDO Administration Clonazepam 0.5 mg 07/30/19 10:00 08/02/19 10:07 Klonopin PO 0.5 mg DAILY ESTUARDO Administration Doxazosin Mesylate 2 mg 07/30/19 10:00 08/02/19 10:06 Cardura PO 2 mg QDAY ESTUARDO Administration Finasteride 5 mg 07/30/19 10:00 08/02/19 10:08 Proscar PO 5 mg DAILY ESTUARDO Administration Cefepime HCl 2 gm in 100 mls @ 200 mls/hr 07/29/19 22:00 08/01/19 22:07 Cefepime/Ns 2 Gm/100 Ml IV 08/03/19 10:29 200 mls/hr Q12HR ESTUARDO Administration Protocol Vancomycin HCl 1,250 mg/ 275 mls @ 137.5 mls/hr 07/31/19 22:00 08/02/19 05:47 Sodium Chloride IV 137.5 mls/hr Q8HR ESTUARDO Administration Metoprolol Tartrate 25 mg 07/30/19 10:00 08/02/19 10:07 Metoprolol PO 25 mg DAILY ESTUARDO Administration Olanzapine 10 mg 07/30/19 10:00 08/02/19 10:08 Zyprexa PO 10 mg DAILY ESTUARDO Administration Ondansetron HCl 4 mg 07/29/19 14:58 Zofran IV Q8H PRN Nausea And Vomiting Sodium Chloride 10 ml 07/29/19 22:00 08/01/19 22:08 Sodium Chloride Flush Syringe 10 Ml IV 10 ml BID ESTUARDO Administration Sodium Chloride 10 ml 07/29/19 14:58 Sodium Chloride Flush Syringe 10 Ml IV PRN PRN LINE FLUSH Sodium Chloride 1 gm 08/02/19 10:00 08/02/19 10:08 Sodium Chloride PO 1 gm TID ESTUARDO Administration
--- NOTE | 2019-08-02 12:14 | Consultation ---
History of Present Illness - Reason for Consult Consult date: 08/02/19 MRSA bacteremia Requesting physician: ZAID RANDHAWA - History of Present Illness The patient is a 48/M personal[facility]ci resident with autism, myopathy, seizure disorder, schizophrenia, chronic bedbound status with indwelling Begum catheter, sacral decubitus ulcer stage IV, hypertension, diabetes mellitus, known to us from his previous hospitalizations due to urinary tract infection was admitted to the hospital on 07/29/2019 with complaints of leg swelling. He was found to have an acute DVT and started on anticoagulation. He was also found to have suspected sepsis due to fever and leukocytosis. Patient is a poor historian. Blood cultures done on admission have grown MRSA, infectious diseases was consulted for additional evaluation. Continues to spike intermittent fevers. Currently on cefepime and vancomycin. Review of Systems: Limited due to poor historian, underlying baseline mental status Past History Past Medical History: diabetes, hypertension, hyperlipidemia, seizures, other (See HPI) Past Surgical History: No surgical history, Other (Reviewed) Social history: single. denies: smoking, alcohol abuse, prescription drug abuse Family history: hypertension Medications and Allergies Allergies Allergy/AdvReac Type Severity Reaction Status Date / Time No Known Allergies Allergy Unverified 05/10/17 11:29 Home Medications Medication Instructions Recorded Confirmed Last Taken Type AtorvaSTATin [Lipitor] 40 mg PO QHS 04/01/19 07/29/19 Unknown History Doxazosin Mesylate [Cardura] 2 mg PO DAILY 04/01/19 07/29/19 Unknown History Finasteride [Proscar] 5 mg PO DAILY 04/01/19 07/29/19 04/01/19 History Fluvoxamine Maleate 100 mg PO DAILY 04/01/19 07/29/19 04/01/19 History Metoprolol [Lopressor TAB] 25 mg PO DAILY 04/01/19 07/29/19 04/01/19 History OLANzapine [Zyprexa] 10 mg PO DAILY 04/01/19 07/29/19 Unknown History clonazePAM 0.5 mg PO DAILY 04/01/19 07/29/19 04/01/19 History ALBUTEROL NEB's [Proventil 0.083% 2.5 mg IH Q3HRT PRN nebu 05/24/19 07/29/19 Unknown Rx NEBS] Acetaminophen [Acetaminophen TAB] 325 mg PO Q6H PRN #15 tablet 05/24/19 07/29/19 Unknown Rx levoFLOXacin [Levaquin] 750 mg PO QDAY #11 tablet 05/24/19 07/29/19 Unknown Rx Active Meds: Active Medications Acetaminophen (Tylenol) 650 mg PO Q4H PRN PRN Reason: Pain MILD(1-3)/Fever >100.5/BRAR Last Admin: 08/02/19 04:10 Dose: 650 mg Documented by: Acetaminophen (Tylenol) 325 mg PO Q6H PRN PRN Reason: Pain, Mild (1-3) Apixaban (Eliquis) 10 mg PO Q12HR [facility]; Protocol Stop: 08/04/19 22:01 Last Admin: 08/02/19 10:08 Dose: 10 mg Documented by: Apixaban (Eliquis) 5 mg PO Q12HR ESTUARDO Atorvastatin Calcium (Lipitor) 40 mg PO QHS [facility] Last Admin: 08/01/19 22:08 Dose: 40 mg Documented by: Clonazepam (Klonopin) 0.5 mg PO DAILY [facility] Last Admin: 08/02/19 10:07 Dose: 0.5 mg Documented by: Doxazosin Mesylate (Cardura) 2 mg PO QDAY [facility] Last Admin: 08/02/19 10:06 Dose: 2 mg Documented by: Finasteride (Proscar) 5 mg PO DAILY [facility] Last Admin: 08/02/19 10:08 Dose: 5 mg Documented by: Cefepime HCl (Cefepime/Ns 2 Gm/100 Ml) 2 gm in 100 mls @ 200 mls/hr IV Q12HR [facility]; Protocol Stop: 08/03/19 10:29 Last Admin: 08/01/19 22:07 Dose: 200 mls/hr Documented by: Vancomycin HCl 1,250 mg/ (Sodium Chloride) 275 mls @ 137.5 mls/hr IV Q8HR [facility] Last Admin: 08/02/19 05:47 Dose: 137.5 mls/hr Documented by: Metoprolol Tartrate (Metoprolol) 25 mg PO DAILY [facility] Last Admin: 08/02/19 10:07 Dose: 25 mg Documented by: Olanzapine (Zyprexa) 10 mg PO DAILY [facility] Last Admin: 08/02/19 10:08 Dose: 10 mg Documented by: Ondansetron HCl (Zofran) 4 mg IV Q8H PRN PRN Reason: Nausea And Vomiting Sodium Chloride (Sodium Chloride Flush Syringe 10 Ml) 10 ml IV BID [facility] Last Admin: 08/01/19 22:08 Dose: 10 ml Documented by: Sodium Chloride (Sodium Chloride Flush Syringe 10 Ml) 10 ml IV PRN PRN PRN Reason: LINE FLUSH Sodium Chloride (Sodium Chloride) 1 gm PO TID [facility] Last Admin: 08/02/19 10:08 Dose: 1 gm Documented by: Physical Examination - Physical Exam Narrative exam: Physical Exam: Constitutional: Alert, cooperative. No acute distress Head, Ears, Nose: Normocephalic, atraumatic. External ears, nose normal Eyes: Conjunctivae/corneas clear. No icterus. No ptosis. Neck: Supple, no meningeal signs Cardiovascular: S1, S2 normal. Respiratory: Good air entry, clear to auscultation bilaterally GI: Soft, non-tender; bowel sounds normal. No peritoneal signs Musculoskeletal: No pedal edema, no cyanosis. Skin: Stage IV sacral decubitus ulcer present, bone exposed Hem/Lymphatic: No palpable cervical or supraclavicular nodes. No lymphangitis Psych: No agitation Neurological: Awake, limited historian - Constitutional Vitals: Vital Signs Temp Pulse Resp BP Pulse Ox 102.2 F H 114 H 18 109/77 100 08/02/19 04:00 08/02/19 10:07 08/02/19 06:00 08/02/19 10:07 08/02/19 06:00 Temperature -Last 24 Hours Temperature 102.2 F Temperature 99.5 F Temperature 98.7 F Temperature 98.3 F Temperature 101.2 F Temperature 99.2 F Results - Labs CBC & Chem 7: 08/02/19 04:48 08/02/19 04:48 Labs: Abnormal lab results 08/01/19 08/01/19 08/02/19 Range/Units 13:21 20:41 04:48 WBC (4.5-11.0) K/mm3 RBC (3.65-5.03) M/mm3 Hgb (11.8-15.2) gm/dl Hct (35.5-45.6) % MCV (84-94) fl MCH (28-32) pg RDW (13.2-15.2) % Plt Count (140-440) K/mm3 Lymph % (Auto) (13.4-35.0) % [place] % (Auto) (0.0-7.3) % [place] # (0.0-0.8) K/mm3 Seg Neutrophils % (40.0-70.0) % Seg Neutrophils # (1.8-7.7) K/mm3 Sodium 132 L 134 L 133 L (137-145) mmol/L BUN 6 L (9-20) mg/dL Creatinine 0.2 L (0.8-1.5) mg/dL Glucose 104 H (75-100) mg/dL ALT 80 H (7-56) units/L Alkaline Phosphatase 210 H (35-129) units/L Total Protein 5.5 L (6.3-8.2) g/dL Albumin 2.1 L (3.9-5) g/dL 08/02/19 Range/Units 04:48 WBC 16.8 H (4.5-11.0) K/mm3 RBC 2.65 L (3.65-5.03) M/mm3 Hgb 6.6 L (11.8-15.2) gm/dl Hct 20.7 L (35.5-45.6) % MCV 78 L (84-94) fl MCH 25 L (28-32) pg RDW 16.1 H (13.2-15.2) % Plt Count 449 H (140-440) K/mm3 Lymph % (Auto) 10.1 L (13.4-35.0) % [place] % (Auto) 11.8 H (0.0-7.3) % [place] # 2.0 H (0.0-0.8) K/mm3 Seg Neutrophils % 77.3 H (40.0-70.0) % Seg Neutrophils # 13.0 H (1.8-7.7) K/mm3 Sodium (137-145) mmol/L BUN (9-20) mg/dL Creatinine (0.8-1.5) mg/dL Glucose (75-100) mg/dL ALT (7-56) units/L Alkaline Phosphatase (35-129) units/L Total Protein (6.3-8.2) g/dL Albumin (3.9-5) g/dL Assessment and Plan Cultures: 07/29/2019 blood culture: MRSA 07/29/2019 urine culture: [place] A/P: 48/M personal-fci resident with autism, myopathy, seizure disorder, schizophrenia, chronic bedbound status with indwelling Begum catheter, sacral decubitus ulcer stage IV, hypertension, diabetes mellitus, known to us from his previous hospitalizations due to urinary tract infection was admitted to the hospital on 07/29/2019 with complaints of leg swelling: #Sepsis, likely multifactorial especially from MRSA bacteremia and likely UTI #MRSA bacteremia: Source unclear, patient does have a stage IV decubitus ulcer with bone exposed however no gross purulence or necrosis noted. #UTI: UA showed pyuria. Culture growing [place]. #Chronic stage IV decubitus ulcer: given his chronic bedbound status and baseline mental status is likely incurable, no role for prolonged antibiotics. Would continue wound care and offloading. Recs: Continue IV vancomycin and cefepime Target vancomycin trough: 10-20 mcg/ml Trans-thoracic echocardiogram ordered Repeat blood cultures ordered Continue wound care and offloading Erwin Ken MD, FACP [facility] ([facility] C: [phone] O: [phone] F: [phone]
[2019-08-02] MEDS: CEFEPIME/NS 2 GM/100 ML 2 GM/100 ML BAG IV SCH (14:33)
--- NOTE | 2019-08-02 15:59 | Discharge Summary ---
Providers - Providers Date of Admission: 07/29/19 14:58 Date of discharge: 08/02/19 Attending physician: ZAID RANDHAWA 07/29/19 15:05 Consult to Physician [CONS] Routine Comment: Consulting Provider: SIMRAN DUBOIS Physician Instructions: Reason For Exam: Hyponatremia 07/30/19 08:01 Consult to Wound/ET Nurse [CONS] Urgent Reason For Exam: wound eval 07/30/19 08:02 Speech Therapy Evaluation and Treat [CONS] Routine Reason For Exam: swallow evaulation 08/02/19 09:33 Consult to Physician [CONS] Routine Comment: Consulting Provider: ERIBERTO CHENEY Physician Instructions: Reason For Exam: MRSA bacteremia Primary care physician: [employer]OTIST Hospitalization Condition: Fair Pertinent studies: -Echo results are pending-echo done FINDINGS: Left Common femoral vein: Negative. Left Superficial femoral vein: Occlusive thrombus. Left Popliteal vein: Negative. Left Calf veins: Negative. Additional findings: None.. IMPRESSION: 1. Study is positive for occlusive deep venous thrombosis. Hospital course: The patient is a 48/M personal-detention resident with autism, myopathy, seizure disorder, schizophrenia, chronic bedbound status with indwelling Begum catheter, sacral decubitus ulcer stage IV, hypertension, diabetes mellitus, known to us from his previous hospitalizations due to urinary tract infection was admitted to the hospital on 07/29/2019 with complaints of leg swelling. He was found to have an acute DVT and started on anticoagulation. He was also found to have suspected sepsis due to fever and leukocytosis. Patient is a poor historian. Blood cultures done on admission have grown MRSA, infectious diseases was consulted for additional evaluation. Continues to spike intermittent fevers. Currently on cefepime and vancomycin. A/P: 48/M personal-detention resident with autism, myopathy, seizure disorder, schizophrenia, chronic bedbound status with indwelling Begum catheter, sacral decubitus ulcer stage IV, hypertension, diabetes mellitus, known to us from his previous hospitalizations due to urinary tract infection was admitted to the hospital on 07/29/2019 with complaints of leg swelling: #Sepsis, likely multifactorial especially from MRSA bacteremia and likely UTI #MRSA bacteremia: Source unclear, patient does have a stage IV decubitus ulcer with bone exposed however no gross purulence or necrosis noted. #UTI: UA showed pyuria. Culture growing [place]. #Chronic stage IV decubitus ulcer: given his chronic bedbound status and baseline mental status is likely incurable, no role for prolonged antibiotics. Would continue wound care and offloading. Recs: Continue IV vancomycin and cefepime Target vancomycin trough: 10-20 mcg/ml Trans-thoracic echocardiogram ordered Repeat blood cultures ordered Continue wound care and offloading Discharge diagnosis (1) Sepsis Current Visit: No Status: Acute Plan to address problem: Sepsis protocol: Continue IV antibiotic therapy. Vancomycin added to patient antibiotic regimen today. Repeat CBC in a.m., IV antibiotic therapy, IV fluid resuscitation therapy, monitor urine output every shift, maintain mean arterial blood pressure greater than or equal to 65, blood cultures results pending. Blood cultures positive for MRSA Patient started on vancomycin IV (2) Hyponatremia syndrome Current Visit: Yes Status: Acute Plan to address problem: likely secondary to SIADH. Inadequate response to Salt tablets and Sodium bicarbonate. S/p one dose of Tolvaptan 07/30. Sodium level improving gradually (3) Left leg DVT Current Visit: Yes Status: Acute Qualifiers: Affected thrombotic vein of extremity: other lower extremity vein Chronicity: acute Qualified Code(s): I82.492 - Acute embolism and thrombosis of other specified deep vein of left lower extremity Plan to address problem: Left superficial femoral vein DVT: Therapeutic anticoagulation, left lower extremity duplex, Eliquis 5 mg twice daily (4) UTI (urinary tract infection) Current Visit: Yes Status: Acute Qualifiers: Encounter type: initial encounter Plan to address problem: Continue IV antibiotics Urine cultures negative till now On cefepime (5) Metabolic encephalopathy Current Visit: Yes Status: Acute Plan to address problem: Supportive care, treat sepsis, seizure precaution, aspiration precautions, neuro check. (6) Sacral decubitus ulcer, stage IV Current Visit: Yes Status: Acute Plan to address problem: Wound care. Present on admission, supportive care. (8) Advance care planning Current Visit: Yes Status: Acute Plan to address problem: Patient is full code, disease education conducted, personal detention staff knowledge understanding and agreement with care plan, +30 minutes. Disposition: DC/[place]-[address] [facility] Core Measure Documentation - Palliative Care Palliative Care/ Comfort Measures: Not Applicable - Core Measures Any of the following diagnoses?: none Exam - Constitutional Vitals: Temp Pulse Resp BP Pulse Ox 100.5 F H 104 H 20 114/67 99 08/02/19 15:25 06/03/20 14:00 08/02/19 14:00 08/02/19 14:00 08/02/19 14:00 General appearance: Present: no acute distress, well-nourished - EENT Eyes: Present: PERRL ENT: hearing intact, clear oral mucosa - Neck Neck: Present: supple, normal ROM - Respiratory Respiratory effort: normal Respiratory: bilateral: CTA - Cardiovascular Heart rate: 78 Rhythm: regular Heart Sounds: Present: S1 & S2. Absent: rub, click - Extremities Extremities: pulses symmetrical, No edema, abnormal (Bilateral sacral decubitus ulcers) Peripheral Pulses: within normal limits - Abdominal General gastrointestinal: Present: soft, non-tender, non-distended, normal bowel sounds Male genitourinary: Present: normal - Integumentary Integumentary: Present: clear, warm, dry - Musculoskeletal Musculoskeletal: gait normal, strength equal bilaterally - Psychiatric Psychiatric: appropriate mood/affect, intact judgment & insight - Neurologic Neurologic: CNII-XII intact, moves all extremities Plan Weight Bearing Status: Non-Weight Bearing Diet: low salt, diabetic Follow up with: PRIMARY CARE, [Primary Care Provider] - 3-5 Days ERIBERTO CHENEY MD [Staff Physician] - 7 Days
[2019-08-02 16:22] VITALS: BP 121/64
[2019-08-05] MEDS ORDERED: APIXABAN 5 MG TAB PO SCH (10:00)
== END 2019-08-02 16:30 | DRG 871 ==
LOC: ED 12:06 → IMCU 14:58
PROVIDERS: ADMIT Internal Medicine; ATTEND Internal Medicine
DX: A41.02 Sepsis due to Methicillin resistant Staphylococcus aureus (principal); L89.154 Pressure ulcer of sacral region, stage 4; G93.41 Metabolic encephalopathy; N17.0 Acute kidney failure with tubular necrosis; N39.0 Urinary tract infection, site not specified; I82.492 Acute embolism and thrombosis of other specified deep vein of left lower extremity; E87.1 Hypo-osmolality and hyponatremia; F84.0 Autistic disorder; E87.2 Acidosis; I10 Essential (primary) hypertension; E11.9 Type 2 diabetes mellitus without complications; F20.9 Schizophrenia, unspecified; E78.5 Hyperlipidemia, unspecified; D72.829 Elevated white blood cell count, unspecified; G40.909 Epilepsy, unspecified, not intractable, without status epilepticus; D64.9 Anemia, unspecified; G72.9 Myopathy, unspecified; Z82.49 Family history of ischemic heart disease and other diseases of the circulatory system; Z79.4 Long term (current) use of insulin
CPT/HCPCS: 36415; 80048; 80053; 80202; 81001; 82140; 82962; 83735; 83880; 83930; 83935; 84100; 84295; 84550; 85007; 85025; 87040; 87076; 87086; 87186; 93306; G0378; A9270-GY; J0692; J0696; J3370; J7030; J7050